=== PATIENT | male | born 1945 | race Asian ===

== ENCOUNTER 2021-03-18 07:05 | Emergency (ER) | payer MEDICARE, SELFPAY ==
--- NOTE | 2021-03-18 | ECG_ITS ---
Test Reason : DIZZY Blood Pressure : / mmHG Vent. Rate : 065 BPM Atrial Rate : 065 BPM P-R Int : 170 ms QRS Dur : 078 ms QT Int : 430 ms P-R-T Axes : 036 -02 040 degrees QTc Int : 447 ms Normal sinus rhythm Normal ECG No previous ECGs available Referred By: Generic ED Physician Electronically Signed By:AYESHA GUERRIER
--- NOTE | ~2021-03-18 | CT_ITS ---
EXAMINATION: CT HEAD WITHOUT CONTRAST CLINICAL INFORMATION: Dizziness. COMPARISON: None TECHNIQUE: Contiguous axial imaging was performed from the skull base to vertex without intravenous administration of contrast. This CT examination was performed using dose optimization techniques as appropriate, variously including the following: *Automated exposure control *Adjustment of mA and/or kV according to patient size (this includes techniques or standardized protocols for targeted exams where dose is matched to indication/reason for exam; i.e. extremities or head) *Use of iterative reconstruction technique DLP: 688 mGy-cm FINDINGS: There is no evidence of acute intracranial hemorrhage or territorial infarction. No abnormal mass effect or midline shift is seen. Snow to white matter differentiation is well preserved. No extra-axial fluid collections are identified. The lateral ventricles are symmetrical but enlarged and so other cortical sulci. There is no abnormal attenuation within the brain parenchyma. The osseous structures and soft tissues are normal. There is diffuse mucoperiosteal thickening involving bilateral ethmoid and sphenoid sinuses. CT/CT head/brain wo con IMPRESSION: No acute intracranial process seen. Age-related cerebral volume loss. Bilateral chronic ethmoid and sphenoid sinus inflammatory changes.
[2021-03-18 07:50] VITALS: BP 130/69; PULSE 71; RESP 18; TEMP 36.6; O2SAT 98; BMI 30.2
--- NOTE | 2021-03-18 07:52 | ED_ITS ---
HPI - Dizziness General Chief Complaint: General Medical Stated Complaint: dizzy Time Seen by Provider: 03/18/21 07:51 Source: patient and family Mode of arrival: wheelchair Limitations: no limitations History of Present Illness MD elicited complaint: dizziness and lightheadedness Pertinent past history: other (vomiting and diarrhea in the middle of the night) Onset (ago): hour(s) (woke up at 2am with symptoms) Timing: sudden onset, awoke with symptoms and intermittent Severity: severe Description: sense of movement, lightheadedness and difficulty walking Context: change in body position and recent illness (vomiting and diarrhea) History of similar symptoms: No Exacerbating factors: movement/ambulation and change in body position Relieving factors: remaining still, rest and lying down Associated symptoms: nausea, vomiting and other (diarrhea) Related Data Previous Rx's Medication Instructions Recorded meclizine 25 mg tablet 25 mg PO TID PRN #30 tab 03/18/21 ondansetron 4 mg disintegrating 4 mg PO Q8H PRN #20 tab 03/18/21 tablet Allergies Allergy/AdvReac Type Severity Reaction Status Date / Time No Known Allergies Allergy Verified 03/18/21 07:59 Review of Systems Review of Systems: Constitutional : No Weight loss, No Fever, No Chills, pos Fatigue, pos Malaise ENT/Mouth : No sore throat, No Rhinorrhea Eyes: No Eye Pain, No Swelling, No Redness Cardiovascular : No Chest Pain, No SOB, No Dyspnea on Exertion, No Orthopnea, No Edema, No Palpitations Respiratory : No Cough, No Sputum, No Wheezing Gastrointestinal : pos Nausea, pos Vomiting, pos Diarrhea, No Constipation, No abdominal Pain, No Hematochezia, No Melena Genitourinary : No Dysuria, No Urinary Frequency, No Hematuria, Musculoskeletal : No joint pain, No Myalgias, No Joint Swelling Skin : No Skin Lesions, No rash Neuro : No Weakness, No Numbness, pos Dizziness, No Headache Psych : No Anxiety/Panic, No Depression Heme/Lymph: No Bruising, No Bleeding,No Lymphadenopathy Endocrine : No Polyuria, No Polydipsia All other systems reviewed and are negative PMFSH Past Medical History Attestation statement: The following information was validated with the patient. Medical History (Updated 03/18/21 @ 11:03 by Patricia Gomez DO) HTN (hypertension) Social History Social History (Updated 03/18/21 @ 08:07 by Patricia Gomez DO) Patient Tobacco Use Status: Never used Tobacco Advance Directives: Yes Advance Directives Information Provided: Yes Advance Directives on File: No Physical Exam Vital Signs: Vital Signs: Last Vital Signs Temp 98 F 03/18/21 07:50 Pulse 62 03/18/21 09:54 Resp 18 03/18/21 09:54 BP 130/81 03/18/21 09:54 Pulse Ox 98 03/18/21 09:54 Body Mass Index 30.2 Appearance: Alert. Oriented X3. No acute distress. Eyes: Pupils equal, round and reactive to light. no nystagmus ENT: Pharynx normal. Neck: Normal inspection. Neck supple. CVS: Normal heart rate and rhythm. Pulses normal. Respiratory: No respiratory distress. Breath sounds normal. Abdomen: Soft and non-tender. Skin: Skin warm and dry. pale skin color. Normal skin turgor. Extremities: No lower extremity edema. No calf ttp Neuro: Oriented X 3. No motor deficit. No sensory deficit. no drift, will not ambulate but can get to the to stretcher, RN also notes he stood up and urinated on his own without issue Course Course Course Narrative: patient has no dizziness states he feels much better, BP stable with orthostatics, stable for DC, steady gait MDM - Dizziness MDM Narrative Medical decision making narrative: 75 yo male with hx of HTN here with dizziness n/v/d no abdominal pain no CP/SOB, non focal neuro exam - symptoms all started at 2am when he woke. At this time labs, IVF, zofran, CT head ordered, could be orthostatics/dehydration, symptoms do improve with rest so posterior stroke seems atypical with no other neuro findings. Lab Data Result diagrams: 03/18/21 08:06 03/18/21 08:06 Labs: Lab Results 03/18/21 03/18/21 03/18/21 Range/Units 08:06 08:06 08:06 WBC 9.7 (4.8-10.8) X10*3/uL RBC 5.36 (4.60-5.80) X10*6/uL Hgb 16.0 (14.0-18.0) g/dl Hct 48.1 (42-52) % MCV 89.7 (80-98) fL MCH 29.9 (27.0-33.0) pg MCHC 33.3 (31.0-36.0) g/dl RDW 14.2 (11.0-16.0) % Plt Count 133 L (160-400) X10*3/uL MPV 10.4 (9.4-12.4) fL Immature Gran % (Auto) 0.7 H (0.0-0.4) % Neut % (Auto) 80.0 H (45-73) % Lymph % (Auto) 15.2 L (20-40) % [place] % (Auto) 3.8 (2-11) % Eos % (Auto) 0.1 (0-4) % Baso % (Auto) 0.2 (0-2) % Lymph # (Auto) 1.5 (1.2-4.9) X10*3/uL [place] # (Auto) 0.4 (0.1-1.2) X10*3/uL Eos # (Auto) 0.0 (0.0-0.4) X10*3/uL Baso # (Auto) 0.0 (0.0-0.2) X10*3/uL Abs Immat Gran (auto) 0.07 H (0.00-0.03) X10*3/uL Absolute Neuts (auto) 7.8 (2.0-8.3) X10*3/uL Absolute Nucleated RBC 0.000 (0.0-0.012) X10*3/uL Nucleated RBC % (auto) 0.0 (0.0-0.2) /100WBC Smear Tech's Comments Not Reportable Sodium 140 (135-145) mmol/L Potassium 4.1 (3.3-5.1) mmol/L Chloride 108 (96-108) mmol/L Carbon Dioxide 21 L (22-29) mmol/L Anion Gap 15 (12-20) BUN 11 (9-16) mg/dL Creatinine 0.91 (0.5-1.4) mg/dL Estim Creat Clear Calc 63.2 Estimated GFR > 60 Random Glucose 219 H (60-115) mg/dL Calcium 8.8 (8.4-10.2) mg/dL Magnesium 2.3 (1.6-2.6) mg/dL Total Bilirubin 0.7 (0.0-1.0) mg/dL Direct Bilirubin 0.2 (0.0-0.5) mg/dL AST 16 (5-37) U/L ALT 14 (0-40) U/L Alkaline Phosphatase 116 (39-117) U/L Troponin I High Sens < 3.5 (<3.5-35.0) ng/L Total Protein 7.2 (6.5-8.0) g/dL Albumin 4.3 (3.5-5.0) g/dL Lipase 53 (8-78) U/L Urine Color Urine Appearance Urine pH (5.0-8.0) Ur Specific [place] (1.005-1.025) Urine Protein (NEG-TRACE) MG/DL Urine Glucose (UA) (NEG) MG/DL Urine Ketones (NEG) MG/DL Urine Blood (NEG) Urine Nitrite (NEG) Ur Leukocyte Esterase (NEG) COVID-19 (QI) (Negative) COVID-19 Clin Com 03/18/21 03/18/21 Range/Units 08:06 09:46 WBC (4.8-10.8) X10*3/uL RBC (4.60-5.80) X10*6/uL Hgb (14.0-18.0) g/dl Hct (42-52) % MCV (80-98) fL MCH (27.0-33.0) pg MCHC (31.0-36.0) g/dl RDW (11.0-16.0) % Plt Count (160-400) X10*3/uL MPV (9.4-12.4) fL Immature Gran % (Auto) (0.0-0.4) % Neut % (Auto) (45-73) % Lymph % (Auto) (20-40) % [place] % (Auto) (2-11) % Eos % (Auto) (0-4) % Baso % (Auto) (0-2) % Lymph # (Auto) (1.2-4.9) X10*3/uL [place] # (Auto) (0.1-1.2) X10*3/uL Eos # (Auto) (0.0-0.4) X10*3/uL Baso # (Auto) (0.0-0.2) X10*3/uL Abs Immat Gran (auto) (0.00-0.03) X10*3/uL Absolute Neuts (auto) (2.0-8.3) X10*3/uL Absolute Nucleated RBC (0.0-0.012) X10*3/uL Nucleated RBC % (auto) (0.0-0.2) /100WBC Smear Tech's Comments Sodium (135-145) mmol/L Potassium (3.3-5.1) mmol/L Chloride (96-108) mmol/L Carbon Dioxide (22-29) mmol/L Anion Gap (12-20) BUN (9-16) mg/dL Creatinine (0.5-1.4) mg/dL Estim Creat Clear Calc Estimated GFR Random Glucose (60-115) mg/dL Calcium (8.4-10.2) mg/dL Magnesium (1.6-2.6) mg/dL Total Bilirubin (0.0-1.0) mg/dL Direct Bilirubin (0.0-0.5) mg/dL AST (5-37) U/L ALT (0-40) U/L Alkaline Phosphatase (39-117) U/L Troponin I High Sens (<3.5-35.0) ng/L Total Protein (6.5-8.0) g/dL Albumin (3.5-5.0) g/dL Lipase (8-78) U/L Urine Color COLORLESS Urine Appearance CLEAR Urine pH 7.5 (5.0-8.0) Ur Specific [place] 1.020 (1.005-1.025) Urine Protein NEG (NEG-TRACE) MG/DL Urine Glucose (UA) 100 H (NEG) MG/DL Urine Ketones NEG (NEG) MG/DL Urine Blood NEG (NEG) Urine Nitrite NEG (NEG) Ur Leukocyte Esterase NEG (NEG) COVID-19 (QI) Negative (Negative) COVID-19 Clin Com See Note ECG Data Attestation: I personally reviewed and interpreted this ECG as follows: ECG interpretation date: 03/18/21 ECG interpretation time: 07:52 Interpretation: Rate: 65 Rhythm: NSR [place]: left Normal P waves. Normal MANDY. Normal QRS complex. ST T wave : normal no RONI qTC: normal prior studies: no acute ischemia The study has been interpreted contemporaneously by me. . Discharge Plan Discharge Clinical Impression: Dizziness Sinusitis Qualifiers: Sinusitis location: ethmoidal Chronicity: acute Recurrence: non-recurrent Qualified Code(s): J01.20 - Acute ethmoidal sinusitis, unspecified Patient Disposition: Home, Self-Care Instructions: Sinusitis (ED), Dizziness (ED) Additional Instructions: return to ED for any worsening symptoms or concerns Prescriptions: New meclizine 25 mg tablet 25 mg PO TID PRN (Reason: dizziness) Qty: 30 RF: 0 ondansetron 4 mg tablet,disintegrating 4 mg PO Q8H PRN (Reason: nausea and vomiting) Qty: 20 RF: 0 Referrals: Physician,Unknown [Primary Care Provider] - 2 days (if not better)
[2021-03-18 08:13] LABS: MANUAL DIFF FLAG SCAN; PLT CLUMP 1; Red Cell Distribution Width 14.2 % (11.0-16.0); SCAN SMEAR FLAG 1
[2021-03-18] MEDS: ondansetron HCL 4 MG/2 ML VIAL IVPUSH (08:13)
[2021-03-18] MEDS: 0.9 % Sodium Chloride 1,000 ML 999 ML IVCONT ×2 (08:14→09:53)
[2021-03-18 08:15] LABS: Basophils Percent Auto 0.2 % (0-2); Eosinophils Percent Auto 0.1 % (0-4); Hematocrit 48.1 % (42-52); Imm Gran Abs Auto 0.07 X10*3/uL (0.00-0.03); Imm Gran Pct Auto 0.7 % (0.0-0.4); Lymphocytes Absolute Auto 1.5 X10*3/uL (1.2-4.9); Lymphocytes Percent Auto 15.2 % (20-40); Mean Corpuscular HGB Conc 33.3 g/dl (31.0-36.0); Mean Corpuscular Hemoglobin 29.9 pg (27.0-33.0); Mean Corpuscular Volume 89.7 fL (80-98); Mean Platelet Volume 10.4 fL (9.4-12.4); Monocytes Absolute Auto 0.4 X10*3/uL (0.1-1.2); Monocytes Percent Auto 3.8 % (2-11); Neutrophils Absolute Auto 7.8 X10*3/uL (2.0-8.3); Platelet Count 133 X10*3/uL (160-400); Red Blood Count 5.36 X10*6/uL (4.60-5.80); White Blood Count 9.7 X10*3/uL (4.8-10.8)
[2021-03-18 08:37] LABS: Alanine Aminotransferase 14 U/L (0-40); Albumin Level 4.3 g/dL (3.5-5.0); Alkaline Phosphatase 116 U/L (39-117); Anion Gap 15 (12-20); Aspartate Amino Transferase 16 U/L (5-37); Bilirubin Direct 0.2 mg/dL (0.0-0.5); Bilirubin Total 0.7 mg/dL (0.0-1.0); Blood Urea Nitrogen 11 mg/dL (9-16); Calcium 8.8 mg/dL (8.4-10.2); Carbon Dioxide 21 mmol/L (22-29); Chloride 108 mmol/L (96-108); Creatinine Clr Calc Pharmacy 63.2; Estimated Glomerular Filt Rate > 60; Glucose Random 219 mg/dL (60-115); Lipase 53 U/L (8-78); Magnesium 2.3 mg/dL (1.6-2.6); Potassium 4.1 mmol/L (3.3-5.1); Sodium 140 mmol/L (135-145); Total Protein 7.2 g/dL (6.5-8.0)
[2021-03-18 08:43] LABS: Troponin-I High Sensitivity < 3.5 ng/L (<3.5-35.0)
[2021-03-18 08:44] LABS: COVID-19 Test Negative (Negative); IDNOW Serial# 08D9AD1C
[2021-03-18 09:30] VITALS: PULSE 70
[2021-03-18] MEDS: Meclizine HCl 25 MG TABLET PO (09:52)
[2021-03-18 09:54] VITALS: BP 130/81; PULSE 62; RESP 18; O2SAT 98
[2021-03-18 09:56] LABS: Glucose Urine UA 100 MG/DL (NEG); Leukocyte Esterase Urine NEG (NEG); Nitrite Urine NEG (NEG); PH 7.5 (5.0-8.0); Urine Blood NEG (NEG); Urine Ketones NEG (NEG); Urine Protein NEG (NEG-TRACE)
[2021-03-18 09:57] LABS: Appearance Urine CLEAR; Color Urine COLORLESS
== END 2021-03-18 11:24 | disposition home or self-care (01) ==
PROVIDERS: Emergency Provider Emergency Medicine
DX: J01.20 Acute ethmoidal sinusitis, unspecified (principal); R42 Dizziness and giddiness; Z79.899 Other long term (current) drug therapy; Z20.822 Contact with and (suspected) exposure to COVID-19
CPT/HCPCS: 36415; 70450; 80048; 80076; 81003; 83690; 83735; 84484; 85025; 87635; 93005; 96361; 96374; 99284; J2405

== ENCOUNTER 2024-04-18 09:00 | Outpatient (REF) | payer MEDICARE, SELFPAY ==
--- NOTE | ~2024-04-18 | XR_ITS ---
EXAMINATION: XR KNEE, LEFT CLINICAL INFORMATION: OSTEOARTHRITIS COMPARISON: 04/18/2024. TECHNIQUE: Four views of the left knee. FINDINGS: There is normal bone mineralization. No fracture, dislocation, or focal bone abnormality. Moderate to severe medial compartment, and mild to moderate lateral and patellofemoral compartment joint space narrowing, with prominent productive marginal osteophytes most prominent medially and involving the medial patellofemoral facet. There is minimal medial subluxation of the femur upon the tibia, suggesting ligamentous laxity. There is a probable suprapatellar effusion although knee is bent on the lateral which limits evaluation. Soft tissues demonstrate vascular calcifications. XR/XR knee LT 4V IMPRESSION: 1. No acute bony abnormalities. 2. Moderate to severe medial compartment and at mild to moderate lateral and patellofemoral compartment osteoarthrosis. 3. Probable joint effusion present. Electronically signed by: Anthony Boucher MD 06/27/2024 08:57 AM [facility]
--- NOTE | ~2024-04-18 | XR_ITS ---
EXAMINATION: XR KNEE, RIGHT CLINICAL INFORMATION: OSTEOARTHRITIS COMPARISON: None available. TECHNIQUE: Four views of the right knee. FINDINGS: There is normal bone mineralization. No fracture, dislocation, or focal bone abnormality. Moderate to severe medial compartment, and moderate lateral and patellofemoral compartment joint space narrowing, with prominent productive marginal osteophytes most prominent medially and involving the medial patellofemoral facet. There is minimal medial subluxation of the femur upon the tibia, suggesting ligamentous laxity. There is a probable suprapatellar effusion although knee is bent on the lateral which limits evaluation. Soft tissues demonstrate vascular calcifications. XR/XR knee RT 4V IMPRESSION: 1. No acute bony abnormalities. 2. Moderate to severe medial compartment and at moderate lateral and patellofemoral compartment osteoarthrosis. 3. Probable joint effusion present. Electronically signed by: Anthony Boucher MD 06/27/2024 08:58 AM [facility]
[2024-04-18 09:28] LABS: MANUAL DIFF FLAG NO
[2024-04-18 10:14] LABS: Basophils Percent Auto 0.3 % (0-2); Eosinophils Absolute Auto 0.1 X10*3/uL (0.0-0.4); Eosinophils Percent Auto 0.7 % (0-4); Hemoglobin 15.5 g/dl (14.0-18.0); Imm Gran Abs Auto 0.04 X10*3/uL (0.00-0.03); Imm Gran Pct Auto 0.5 % (0.0-0.4); Lymphocytes Absolute Auto 1.6 X10*3/uL (1.2-4.9); Lymphocytes Percent Auto 22.1 % (20-40); Mean Corpuscular Hemoglobin 29.6 pg (27.0-33.0); Mean Corpuscular Volume 89.9 fL (80.0-98.0); Mean Platelet Volume 10.6 fL (9.4-12.4); Monocytes Absolute Auto 0.6 X10*3/uL (0.1-1.2); Monocytes Percent Auto 8.2 % (2-11); Neutrophils Percent Auto 68.2 % (45-73); Platelet Count 143 X10*3/uL (160-400); Red Blood Count 5.23 X10*6/uL (4.60-5.80); White Blood Count 7.3 X10*3/uL (4.8-10.8)
[2024-04-18 11:15] LABS: Alanine Aminotransferase 17 U/L (0-40); Albumin Level 4.1 g/dL (3.5-5.0); Alkaline Phosphatase 98 U/L (39-117); Anion Gap 11 (12-20); Aspartate Amino Transferase 16 U/L (5-37); Blood Urea Nitrogen 9 mg/dL (9-16); Carbon Dioxide 25 mmol/L (22-29); Chloride 109 mmol/L (96-108); Cholesterol 151 mg/dL (<200); Estimated Glomerular Filt Rate > 60; Glucose Random 122 mg/dL (60-115); HDL Cholesterol 39 mg/dL (>40); LDL Cholesterol Calculated 96 mg/dL (<100); Potassium 3.8 mmol/L (3.3-5.1); Sodium 141 mmol/L (135-145); Thyroid Stimulating Hormone 5.36 uIU/mL (0.32-4.0); Total Protein 6.9 g/dL (6.5-8.0); Triglycerides 81 mg/dL (<150)
[2024-04-18 11:33] LABS: Prostate Specific Antigen Scr 8.15 ng/mL (<0.05-4.0)
== END 2024-04-18 09:01 | disposition home or self-care (01) ==
LOC: HO.XRAY 09:00
PROVIDERS: PCP Internal Medicine; Visit Provider Internal Medicine
DX: H91.90 Unspecified hearing loss, unspecified ear (principal); I10 Essential (primary) hypertension; M17.9 Osteoarthritis of knee, unspecified; N40.0 Benign prostatic hyperplasia without lower urinary tract symptoms; Z12.5 Encounter for screening for malignant neoplasm of prostate; M17.11 Unilateral primary osteoarthritis, right knee; M17.12 Unilateral primary osteoarthritis, left knee
CPT/HCPCS: 36415; 73564; 80053; 80061; 84153; 84443; 85025

== ENCOUNTER → 2024-04-18 09:31 | Outpatient (BNV) | payer MEDICARE, SELFPAY | PROVIDERS: PCP Internal Medicine; Visit Provider Radiology Diagnostic Radiology | DX: M17.0 Bilateral primary osteoarthritis of knee (principal) | CPT/HCPCS: 73564 ==

== ENCOUNTER 2024-08-15 09:00 | Outpatient (AMB) | payer MEDICARE, MEDICAID, SELFPAY ==
--- NOTE | 2024-08-15 09:04 | MHC.OFFVIS ---
Intake Visit Reasons: elevated PSA (set) Intake Note: Patient is present for ELEVATED PSA Urology Medication:NONE Antibiotic Allergy:NONE Blood Thinner:NONE Russian Language Professor Required: No Allergies No Known Allergies Allergy (Verified 08/15/24 09:04) Medication List - Last Reconciled 08/15/24 by Martin Baltazar MD amlodipine 10 mg PO DAILY dutasteride (Avodart) 0.5 mg PO DAILY HPI Comments Details: Harjit is a 79 year old male past medical history hypertension on amlodipine, who presents to the office as a new patient for elevated PSA. His daughter is here who interprets for him. I have reviewed lab results with them PSA-04/18/2024--8.15 ng/mL. I have discussed that elevated PSA may indicate changes in the prostate including benign enlargement, cancer and an inflammatory condition. I will empirically start an alpha reductase inhibitor Avodart 0.5 mg daily and repeat PSA. I have discussed consider prostate biopsy pending repeat PSA results. [facility] Medical History Hearing loss Obesity, morbid (more than 100 lbs over ideal weight or BMI > 40) Arthritis, rheumatic, acute or subacute HTN (hypertension) Social History Household Members: Spouse Alcohol intake: never Patient Tobacco Use Status: Never used Tobacco service: No Current occupational status: unemployed and disabled Sexual orientation: Straight/Heterosexual Gender identity: Male Review of Systems Const All systems reviewed & are unremarkable except as noted in HPI and below Reports no additional complaints Eyes Reports no additional complaints ENT Reports no additional complaints Card Reports no additional complaints Resp Reports no additional complaints GI Reports no additional complaints Reports as per HPI Musc Reports no additional complaints Skin/Breast Reports system reviewed and no additional complaints, except as documented Neuro Reports no additional complaints Psych Reports no additional complaints Endo Reports no additional complaints Marcin/Lymph Reports no additional complaints Aller/Immun Reports no additional complaints Physical Exam Const General: healthy appearing, no acute distress and well developed Orientation/consciousness: patient oriented x3 HEENT Head: Yes normocephalic and Yes atraumatic Eyes Conjunctivae: conjunctivae normal Neck Neck: Yes normal visual inspection Chest Chest palpation & inspection: normal inspection of the chest Resp Effort & Inspection: normal respiratory effort GI Inspection: Yes normal to inspection Neuro General: patient oriented x3 Psych Appearance: grossly normal Affect: normal affect Results AMB Urinalysis, Automated UA Leukoctes 0 Kurt/uL Last Edit by BRISA De La Fuente on 08/15/24 09:17 UA Nitrite Negative Last Edit by BRISA De La Fuente on 08/15/24 09:17 UA Urobilinogen 0.2 mg/dL Last Edit by BRISA De La Fuente on 08/15/24 09:17 UA Protein 15 mg/dL Last Edit by BRISA De La Fuente on 08/15/24 09:17 UA pH 6.0 Last Edit by BRISA De La Funete on 08/15/24 09:17 UA Blood 0 Ru/uL Last Edit by Miriam Lezama CCM on 08/15/24 09:17 UA Specific [place] 1.030 Last Edit by BRISA De La Fuente on 08/15/24 09:17 UA Ketone Negative Last Edit by BRISA De La Fuente on 08/15/24 09:17 UA Bilirubin 0 mg/dL Last Edit by Miriam Lezama CCM on 08/15/24 09:17 UA Glucose 0 mg/dL Last Edit by [facility]ama [facility] on 08/15/24 09:17 Results Reviewed Results Reviewed: Laboratory Last Values Urine pH (Auto) 6.0 08/15/24 09:17 Specific [place] (Auto) 1.030 08/15/24 09:17 Urine Protein (Auto) 15 mg/dL 08/15/24 09:17 Glucose (UA)(Auto) 0 mg/dL 08/15/24 09:17 Urine Ketones (Auto) Negative 08/15/24 09:17 Urine Blood (Auto) 0 Ru/uL 08/15/24 09:17 Urine Nitrite (Auto) Negative 08/15/24 09:17 Urine Bilirubin (Auto) 0 mg/dL 08/15/24 09:17 Urine Urobilinogen (Auto) 0.2 mg/dL 08/15/24 09:17 Leukocyte Esterase (Auto) 0 Kurt/uL 08/15/24 09:17 Assessment & Plan Assessment & Plan (1) Elevated PSA: Code(s): R97.20 - Elevated prostate specific antigen [PSA] Category: Medical (2) BPH (benign prostatic hyperplasia): Code(s): N40.0 - Benign prostatic hyperplasia without lower urinary tract symptoms Category: Medical Plan Avodart 0.5 mg daily. Repeat PSA in 3-4 months Orders: Orders AMB Urinalysis Automated Today Z13.9 - Encounter for screening, unspecified Medications: New dutasteride (Avodart) 0.5 mg PO DAILY 90 caps 1RF Patient Instructions: The patient had an opportunity to ask questions regarding treatment plan. The patient expressed understanding and agreement with the above treatment plan. The patient is aware they should contact our office by phone for worsening of their current condition or the appearance of new symptoms. Compliance is encouraged with any medications and followup testing that is ordered. It is a privilege to be allowed the opportunity to participate in the urologic care of your patient. If you have any questions or concerns regarding treatment for the above conditions please do not hesitate to contact me. The office telephone contact is [phone]. This note is constructed in part using voice recognition software. While every effort has been made to ensure accuracy paper rewinder operator errors may have been included. Yours sincerely, Martin Baltazar MD Coding Level of Care Code New Pt Level 4 (49902) Diagnoses Elevated PSA R97.20 BPH (benign prostatic hyperplasia) N40.0
--- OUTSIDE RECORDS SUMMARY | 2024-08-15 09:32 | XMS_ITS | Data Portability ---
Author Organization [facility], [facility] Address [address] [place] [address] Assessment Encounter Date Assessment Date Assessment LastModified by Organization Details LastModified Time 09/04/2020 09/04/2020 Patient agreed t o this visit via phone due to the COVID -19 pandemic. Patient understands this is a scheduled visit and the usual procedures with regard to billing and confidentiality apply. Patient was notified that the provider location is . Patient location: home During the visit the patient? s medical history and medical record were reviewed. The patient was notified to call our office for worsening or urgent symptoms. [email or web address] Not available 09/04/2020 15:13:27 Plan of Treatment Reminders Order Date Submit Date Provider Last Modified By Organization Details Last Modified Time Details Appointments None record ed. Lab None record ed. Referral None record ed. Procedures None record ed. Surgeries None record ed. Imaging None record ed. Medication Orders None record ed. Patient Targets Encounter Date Encounter Id Patient Goals Patient Target Last Modified By Organization Details Last Modified Time paperwork is filled out. Not available 01/03/2019 06:21:08 Return for PHA 6m Not available 08/17/2019 11:35:25 PHA. 6 m Not available 15:47:17 Patient Instructions Encounter Date Encounter Id Patient Instructions Last Modified By Organization Details Last Modified Time 12/16/2018 [id number] leg and ankle edema: care instructions [email or web address] Not available 12/16/2018 12:31:06 After a discussion of treatment options, which included consideration of best practices, patient preferences, and the patient? s individual lifestyle and treatment goals, as well as consideration and attempted mitigation of any barriers to meeting the patient? s goals, the following treatment plan and objectives were adopted: Leg and Ankle Edema: Care Instructions Your Care Instructions Swelling in the legs, ankles, and feet is called edema. It is common after you sit or stand for a while. Long plane flights or car rides often cause swelling in the legs and feet. You may also have swelling if you have to stand for long periods of time at your job. Problems with the veins in the legs (varicose veins) and changes in hormones can also cause swelling. Sometimes the swelling in the ankles and feet is caused by a more serious problem, such as heart failure, infection, blood clots, or liver or kidney disease. Follow-up care is a sofia part of your treatment and safety. Be sure to make and go to all appointments, and call your doctor if you are having problems. It's also a good idea to know your test results and keep a list of the medicines you take. How can you care for yourself at home? If your doctor gave you medicine, take it as prescribed. Call your doctor if you think you are having a problem with your medicine. Whenever you are resting, raise your legs up. Try to keep the swollen area higher than the level of your heart. Take breaks from standing or sitting in one position. Walk around to increase the blood flow in your lower legs. Move your feet and ankles often while you stand, or tighten and relax your leg muscles. Wear support stockings. Put them on in the morning, before swelling gets worse. Eat a balanced diet. Lose weight if you need to. Limit the amount of salt (sodium) in your diet. Salt holds fluid in the body and may increase swelling. When should you call for help? Call 911 anytime you think you may need emergency care. For example, call if: You have symptoms of a blood clot in your lung (called a pulmonary embolism). These may include: Sudden chest pain. Trouble breathing. Coughing up blood. Call your doctor now or seek immediate medical care if: You have signs of a blood clot, such as: Pain in your calf, back of the knee, thigh, or groin. Redness and swelling in your leg or groin. You have symptoms of infection, such as: Increased pain, swelling, warmth, or redness. Red streaks or pus. A fever. Watch closely for changes in your health, and be sure to contact your doctor if: Your swelling is getting worse. You have new or worsening pain in your legs. You do not get better as expected. [email or web address] Not available 12/16/2018 15:57:35 Reason for Referral None Reported. Results Created Date Observation Date Name Description Value Unit Range Abnormal Flag Note LastModifiedBy Organization Detail LastModifiedTime 12/11/19 19 12/10/2018 BMP, serum or plasm a glucose 111 mg/dL 70-100 high LIPS= Speci men Sligh tly Lipem ic. Chem Resul ts may be effec jacob. Not Available [address], [address], 12/10/2018 11:08:56 12/11/19 19 12/10/2018 BMP, serum or plasm a BUN 13 mg/dL 7-18 Not Available [address], [address], 12/10/2018 11:08:56 12/11/19 19 12/10/2018 BMP, serum or plasm a creatinine 1.0 mg/dL 0.8-1. 3 Not Available [address], [address], 12/10/2018 11:08:56 12/11/19 19 12/10/2018 BMP, serum or plasm a B/C 13.0 ratio Not Available [address], [address], 12/10/2018 11:08:56 12/11/19 19 12/10/2018 BMP, serum or plasm a GFR -non 78.1 mL/mi n Recom everton d GFR by the Natio nal Kidne y Found ation >60 mL/mi n/1.7 3m2 - Merly l <60 mL/mi n/1.7 3m2 - Chron ic Kidne y Disea se <15 mL/mi n/1.7 3m2 - Kidne y Failu re Not Available [address], [address], 12/10/2018 11:08:56 12/11/19 19 12/10/2018 BMP, serum or plasm a GFR - if 94.5 mL/mi n For Afric an Ameri can patie nts: Resul ts Multi plied by 1.21 Not Available [address], [address], 12/10/2018 11:08:56 12/11/19 19 12/10/2018 BMP, serum or plasm a sodium 141 mmol/ L 136-14 5 Not Available [address], [address], 12/10/2018 11:08:56 12/11/19 19 12/10/2018 BMP, serum or plasm a potassium 4.5 mmol/ L 3.5-5. 1 Not Available [address], [address], 12/10/2018 11:08:56 12/11/19 19 12/10/2018 BMP, serum or plasm a chloride 106 mmol/ L 96-107 Not Available [address], [address], 12/10/2018 11:08:56 12/11/19 19 12/10/2018 BMP, serum or plasm a anion gap 7.8 5.0-15 .0 Not Available [address], [address], 12/10/2018 11:08:56 12/11/1912/10/2018 BMP, serum or plasm a CO2 27 mmol/ L 21-32 Not Available [address], [address], 12/10/2018 11:08:56 12/11/1912/10/2018 BMP, serum or plasm a calcium 8.6 mg/dL 8.5-10 .3 Not Available [address], [address], 12/10/2018 11:08:56 12/11/1912/10/2018 uric acid, serum or plasm a uric acid 4.2 mg/dL 3.5-7. 2 Not Available [address], [address], 12/10/2018 11:08:57 12/11/19 19 12/10/2018 C-roseanne ctive prote in, quant itati ve, serum or plasm a C-reactive protein -quant 5.8 mg/L 0.0-9. 0 Not Available [address], [address], 12/10/2018 11:08:57 12/11/19 19 12/10/2018 ESR (eryt hrocy te sedim entat ion rate) , blood sed rate 2.0 0.0-20 .0 Not Available [address], [address], 12/10/2018 11:50:51 07/07/2007/08/2019 BMP, serum or plasm a glucose 99 mg/dL 70-100 Not Available [address], [address], 07/08/2019 10:44:32 07/07/2007/08/2019 BMP, serum or plasm a BUN 12 mg/dL 7-18 Not Available [address], [address], 07/08/2019 10:44:32 07/07/2007/08/2019 BMP, serum or plasm a creatinine 1.0 mg/dL 0.8-1. 3 Not Available [address], [address], 07/08/2019 10:44:32 07/07/2007/08/2019 BMP, serum or plasm a B/C 12.0 ratio Not Available [address], [address], 07/08/2019 10:44:32 07/07/2007/08/2019 BMP, serum or plasm a GFR -non 77.8 mL/mi n Recom everton d GFR by the Natio nal Kidne y Found ation >60 mL/mi n/1.7 3m2 - Merly l <60 mL/mi n/1.7 3m2 - Chron ic Kidne y Disea se <15 mL/mi n/1.7 3m2 - Kidne y Failu re Not Available [address], [address], 07/08/2019 10:44:32 07/07/20 19 07/08/2019 BMP, serum or plasm a GFR - if 94.2 mL/mi n For Afric an Ameri can patie nts: Resul ts Multi plied by 1.21 Not Available [address], [address], 07/08/2019 10:44:32 07/07/20 19 07/08/2019 BMP, serum or plasm a sodium 142 mmol/ L 136-14 5 Not Available [address], [address], 07/08/2019 10:44:32 07/07/2007/08/2019 BMP, serum or plasm a potassium 4.4 mmol/ L 3.5-5. 1 Not Available [address], [address], 07/08/2019 10:44:32 07/07/2007/08/2019 BMP, serum or plasm a chloride 104 mmol/ L 96-107 Not Available [address], [address], 07/08/2019 10:44:32 07/07/2007/08/2019 BMP, serum or plasm a anion gap 9.9 5.0-15 .0 Not Available [address], [address], 07/08/2019 10:44:32 07/07/2007/08/2019 BMP, serum or plasm a CO2 28 mmol/ L 21-32 Not Available [address], [address], 07/08/2019 10:44:32 07/07/2007/08/2019 BMP, serum or plasm a calcium 8.7 mg/dL 8.5-10 .3 Not Available [address], [address], 07/08/2019 10:44:32 07/07/2007/08/2019 lipid panel , serum cholesterol 160 mg/dL <200 mg/dl Genet able 200-2 39 mg/dl Borde rline High >240 mg/dl High Not Available [address], [address], 07/08/2019 10:44:33 07/07/2007/08/2019 lipid panel , serum triglyceride s 75 mg/dL <150 mg/dL Merly l 150-1 99 mg/dL Borde rline High 200-4 99 mg/dL High >500 mg/dL Very High Not Available [address], [address], 07/08/2019 10:44:33 07/07/2007/08/2019 lipid panel , serum direct HDL 41 mg/dL <40 mg/dl - Major Risk for CHD >60 mg/dl - Negat ronald Risk for CHD Not Available [address], [address], 07/08/2019 10:44:33 07/07/2007/08/2019 LDL, direc t, serum direct LDL 108 mg/dL RISK CATEG ORY LDL GOAL _ CHD or CHD Risk Equiv alent s <100 mg/dl (10-y ear risk >20%) 2+ Risk Facto rs <130 mg/dl (10-y ear risk <= 20%) 0-1 Risk Facto r??? <160 mg/dl ??? Almos t all peopl e with 0-1 risk facto r have a 10 year risk <10%, thus 10 year risk asses ment in peopl e with 0-1 risk facto r is not neces glenn. Not Available [address], [address], 07/08/2019 10:44:34 08/30/19 21 08/30/2020 BMP, serum or plasm a glucose 113 mg/dL 70-100 high Not Available [address], [address], 08/30/2020 13:55:42 08/30/19 21 08/30/2020 BMP, serum or plasm a BUN 15 mg/dL 7-18 Not Available [address], [address], 08/30/2020 13:55:42 08/30/19 21 08/30/2020 BMP, serum or plasm a creatinine 1.0 mg/dL 0.8-1. 3 Not Available [address], [address], 08/30/2020 13:55:42 08/30/19 21 08/30/2020 BMP, serum or plasm a B/C 15.0 ratio Not Available [address], [address], 08/30/2020 13:55:42 08/30/19 21 08/30/2020 BMP, serum or plasm a GFR -non 77.6 mL/mi n Recom everton d GFR by the Natio nal Kidne y Found ation >60 mL/mi n/1.7 3m2 - Merly l <60 mL/mi n/1.7 3m2 - Chron ic Kidne y Disea se <15 mL/mi n/1.7 3m2 - Kidne y Failu re Not Available [address], [address], 08/30/2020 13:55:42 08/30/19 21 08/30/2020 BMP, serum or plasm a GFR - if 93.9 mL/mi n For Afric an Ameri can patie nts: Resul ts Multi plied by 1.21 Not Available [address], [address], 08/30/2020 13:55:42 08/30/19 21 08/30/2020 BMP, serum or plasm a sodium 143 mmol/ L 136-14 5 Not Available [address], [address], 08/30/2020 13:55:42 08/30/19 21 08/30/2020 BMP, serum or plasm a potassium 4.1 mmol/ L 3.5-5. 1 Not Available [address], [address], 08/30/2020 13:55:42 08/30/19 21 08/30/2020 BMP, serum or plasm a chloride 106 mmol/ L 96-107 Not Available [address], [address], 08/30/2020 13:55:42 08/30/19 21 08/30/2020 BMP, serum or plasm a anion gap 10.0 5.0-15 .0 Not Available [address], [address], 08/30/2020 13:55:42 08/30/1908/30/2020 BMP, serum or plasm a CO2 27 mmol/ L 21-32 Not Available [address], [address], 08/30/2020 13:55:42 08/30/1908/30/2020 BMP, serum or plasm a calcium 8.7 mg/dL 8.5-10 .3 Not Available [address], [address], 08/30/2020 13:55:42 08/30/1908/30/2020 lipid panel , serum cholesterol 168 mg/dL <200 mg/dl Genet able 200-2 39 mg/dl Borde rline High >240 mg/dl High Not Available [address], [address], 08/30/2020 13:55:43 08/30/19 21 08/30/2020 lipid panel , serum triglyceride s 71 mg/dL <150 mg/dL Merly l 150-1 99 mg/dL Borde rline High 200-4 99 mg/dL High >500 mg/dL Very High Not Available [address], [address], 08/30/2020 13:55:43 08/30/19 21 08/30/2020 lipid panel , serum direct HDL 47 mg/dL <40 mg/dl - Major Risk for CHD >60 mg/dl - Negat ronald Risk for CHD Not Available [address], [address], 08/30/2020 13:55:43 08/30/19 21 08/30/2020 LDL, dmitry fried , serum (OBS) LDL - calculated 106.8 RISK CATEG ORY LDL GOAL _ CHD or CHD Risk Equiv alent s <100 mg/dl (10-y ear risk >20%) 2+ Risk Facto rs <130 mg/dl (10-y ear risk <= 20%) 0-1 Risk Facto r??? <160 mg/dl ??? Almos t all peopl e with 0-1 risk facto r have a 10 year risk <10%, thus 10 year risk asses ment in peopl e with 0-1 risk facto r is not flor elizabeth. Not Available [address], [address], 08/30/2020 13:55:44 02/13/20 21 02/12/2021 LIPID PANEL cholesterol 148 mg/dL <200 mg/dl Genet able 200-2 39 mg/dl Borde rline High >240 mg/dl High Not Available [address], [address], 02/12/2021 14:06:18 02/13/20 21 02/12/2021 LIPID PANEL triglyceride s 54 mg/dL <150 mg/dL Merly l 150-1 99 mg/dL Borde rline High 200-4 99 mg/dL High >500 mg/dL Very High Not Available [address], [address], 02/12/2021 14:06:18 02/13/20 21 02/12/2021 LIPID PANEL direct HDL 42 mg/dL <40 mg/dl - Major Risk for CHD >60 mg/dl - Negat ronald Risk for CHD Not Available [address], [address], 02/12/2021 14:06:18 02/13/20 21 02/12/2021 LDL - CALCU LATED LDL - calculated 95.2 RISK CATEG ORY LDL GOAL _ CHD or CHD Risk Equiv alent s <100 mg/dl (10-y ear risk >20%) 2+ Risk Facto rs <130 mg/dl (10-y ear risk <= 20%) 0-1 Risk Facto r??? <160 mg/dl ??? Almos t all peopl e with 0-1 risk facto r have a 10 year risk <10%, thus 10 year risk asses ment in peopl e with 0-1 risk facto r is not neces glenn. Not Available [address], [address], 02/12/2021 14:06:19 02/13/20 21 02/12/2021 BASIC METAB OLIC PANEL glucose 105 mg/dL 70-100 high Not Available [address], [address], 02/12/2021 15:23:25 02/13/20 21 02/12/2021 BASIC METAB OLIC PANEL BUN 11 mg/dL 7-18 Not Available [address], [address], 02/12/2021 15:23:25 02/13/20 21 02/12/2021 BASIC METAB OLIC PANEL creatinine 0.9 mg/dL 0.8-1. 3 Not Available [address], [address], 02/12/2021 15:23:25 02/13/20 21 02/12/2021 BASIC METAB OLIC PANEL B/C 12.2 ratio Not Available [address], [address], 02/12/2021 15:23:25 02/13/20 21 02/12/2021 BASIC METAB OLIC PANEL GFR -non 87.7 mL/mi n Recom everton d GFR by the Natio nal Kidne y Found ation >60 mL/mi n/1.7 3m2 - Merly l <60 mL/mi n/1.7 3m2 - Chron ic Kidne y Disea se <15 mL/mi n/1.7 3m2 - Kidne y Failu re Not Available [address], [address], 02/12/2021 15:23:25 02/13/20 21 02/12/2021 BASIC METAB OLIC PANEL GFR - if 106.1 mL/mi n For Afric an Jose De Jesus reynolds patie nts: Resul ts Multi plied by 1.21 Not Available [address], [address], 02/12/2021 15:23:25 02/13/20 21 02/12/2021 BASIC METAB OLIC PANEL sodium 141 mmol/ L 136-14 5 Not Available [address], [address], 02/12/2021 15:23:25 02/13/20 21 02/12/2021 BASIC METAB OLIC PANEL potassium 4.1 mmol/ L 3.5-5. 1 Not Available [address], [address], 02/12/2021 15:23:25 02/13/20 21 02/12/2021 BASIC METAB OLIC PANEL chloride 107 mmol/ L 96-107 Not Available [address], [address], 02/12/2021 15:23:25 02/13/20 21 02/12/2021 BASIC METAB OLIC PANEL anion gap 9.5 5.0-15 .0 Not Available [address], [address], 02/12/2021 15:23:25 02/13/20 21 02/12/2021 BASIC METAB OLIC PANEL CO2 25 mmol/ L 21-32 Not Available [address], [address], 02/12/2021 15:23:25 02/13/20 21 02/12/2021 BASIC METAB OLIC PANEL calcium 8.2 mg/dL 8.5-10 .3 low FRANCIE=V erifi ed by Kg zarate Not Available [address], [address], 02/12/2021 15:23:25 02/13/20 21 02/14/2021 QUANT IFERO N TB GOLD PLUS, JOE nil 0.02 IU/mL Not Available [address], [address], 02/14/2021 14:35:03 02/13/20 21 02/14/2021 QUANT IFERO N TB GOLD PLUS, JOE TB1 antigen 0.23 IU/mL Not Available [address], [address], 02/14/2021 14:35:03 02/13/20 21 02/14/2021 QUANT IFERO N TB GOLD PLUS, JOE TB2 antigen 0.28 IU/mL Not Available [address], [address], 02/14/2021 14:35:03 02/13/20 21 02/14/2021 QUANT IFERO N TB GOLD PLUS, JOE mitogen 9.91 IU/mL Not Available [address], [address], 02/14/2021 14:35:03 02/13/20 21 02/14/2021 QUANT IFERO N TB GOLD PLUS, JOE tbgp Negati ve negati ve Not Available [address], [place], [address], 02/14/2021 14:35:03 12/10/19 19 12/09/2018 XR, foot OBSERV ATION: EXAM: Radiog raphs of right foot, 3 views COMPAR THERON: none Histor y: Exquis ite tender ness of the right third metata rsopha langea l joint, rednes s and swelli ng of the right foot. No trauma . Rule out fractu re. FINDIN GS: Includ ed bone struct ures are intact and in anatom ic alignm ent. Promin ent planta r calcan eal spurri ng. Mild narrow ing of the first metata rsopha langea l joint associ ated with sclero tic/cy stic change s and tiny margin al osteop hytes. Remain ing joint spaces appear preser octavio.. Promin ent vascul ar calcif icatio ns. IMPRES MIGUEL ANGEL: 1. No acute fractu re or disloc ation. 2. Minima l degene rative change s at the first metata rsopha langea l joint. Electr onical ly signed Lissette rodriguez Physic dejan: Lizandro mancera [facility] (Imaging) [address] [place] [address] , [place], [id number], 12/10/2018 08:51:47 Result Notes None recorded. Problems Name Problem SNOMED Code Status Onset Date Resolution Date Notes Provider Name and Address Organization Details Recorded Time Diverticul itis of colon 663618836 Completed 07/31/2014 Carlos Tyson MD [address] [place] [address], [place], [phone] , [facility] 5 15:19:00 Low back pain 499926308 Completed 03/08/2012 Not Available [facility] 3 03:15:09 Cough 07366058 Completed 03/08/2012 Not Available [facility] 3 03:15:09 Essential hypertensi on 34220294 [facility] 6 15:54:38 Glucose level outside reference range 834290412 Completed 03/08/2012 Not Available [facility] 3 03:15:09 Urolith Completed 07/31/2014 Carlos Tyson MD [address] [place] [address], [phone] , [facility] 5 15:19:00 Malaise and fatigue 729932647 Completed 06/03/2011 Not Available [facility] 3 03:15:09 Knee pain Completed 201509/04/2020 Carlos Tyson MD [address] [place] [address], [phone] , [facility] 1 15:47:08 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 Procedures Surgical History Date Name Laterality Status Provider Name and Address Organization Details Recorded Time 8 Medicare Wellness Visit completed Saranya Pierre Maximiliano [facility] 07/05/2018 08:44:21 8 Advanced Care Planning completed Saranya Pierre Maximiliano [facility] 07/05/2018 08:44:32 7 Medicare Wellness Visit completed Tasha Price [facility] 01/07/2017 14:13:44 6 Medicare Wellness Visit completed Roz Boland LPN [facility] 08/06/2015 09:00:19 5 Medicare Wellness Visit completed Aaliyah Hollingsworth LPN [facility] 07/31/2014 14:55:22 5 Medicare Annual Wellness Visit completed Aaliyah Hollingsworth LPN [facility] 07/31/2014 15:08:29 5 Medicare Risk for Falls Screen completed Aaliyah Hollingsworth LPN [facility] 07/31/2014 15:08:29 3 Medicare Wellness Visit completed Shari Gil [facility] 07/25/2013 08:56:35 2 Medicare Wellness Visit completed Cuba Childress LPN [facility] 03/08/2012 10:02:24 2 Treatment and Advice completed Isaura Mancuso Mph, LPT [address] [place], [address], [facility] 08/07/2011 11:01:45 2 Treatment and Advice completed Isaura Mancuso Mph, LPT [address] [place], [address], [facility] 08/04/2011 11:11:29 2 Treatment and Advice completed Isaura Mancuso Mph, LPT [address] [place], [address], [facility] 08/01/2011 10:59:48 Imaging Results Imaging Date Name Status LastModified by Organiz ation Details LastModified Time 12/09/2018 XR, foot completed [facility] (Imaging) [address], [place], [address], 12/10/2018 08:51:47 Procedure Notes None recorded. Medical Equipment None Reported. Allergies No known drug allergies Medications Name Sig Start Date Stop Date Status Note LastModified by Organization Details LastModified Time diclofenac 3 % topical gel APPLY TO LESION AREAS BY TOPICAL ROUTE 2 TIMES PER DAY 2013 active Not Available Not Available Not Avai lable ibuprofen 800 mg tablet 08/17 completed Not Available Not Available Not Available Vicodin 5 mg-500 mg tablet Take 1 tablet every 4 hours by oral route. 2010 active Not Available Not Available Not Avai lable lisinopril 20 mg tablet TAKE 1 TABLET BY MOUTH DAILY 2011 active Not Available Not Available Not Avai lable prednisone 20 mg tablet Take 3 tabs for 3 days then 1 tab for 3 days 12/16 completed corre ction : take 2 tabs for 3 days then 1 tab for 3 days Not Available Not Available Not Available metronidazo le 500 mg tablet Take 1 tablet every 8 hours by oral route for 7 days. 06/12 completed Not Available Not Available Not Available Bactroban 2 % topical cream APPLY A SMALL AMOUNT TO THE AFFECTED AREA BY TOPICAL ROUTE 3 TIMES PER DAY FOR 10 DAYS 2015 active Not Available Not Available Not Avai lable losartan 100 mg-hydrochl orothiazide 25 mg tablet TAKE ONE TABLET BY MOUTH DAILY active Not Available Not Available No t Available amlodipine 10 mg tablet TAKE 1 TABLET BY MOUTH EVERY DAY 09/24 completed Not Available Not Available Not Available doxycycline monohydrate 100 mg capsule Take 1 capsule twice a day by oral route for 10 days. 04/11 completed Not Available Not Available Not Available Bactroban 2 % topical ointment APPLY A SMALL AMOUNT TO THE AFFECTED AREA BY TOPICAL ROUTE 3 TIMES PER DAY 01/07 completed Not Available Not Available Not Available Cipro 500 mg tablet Take 1 tablet every 12 hours by oral route for 7 days. 06/12 completed Not Available Not Available Not Available lisinopril 10 mg tablet Take 1 tablet every day by oral route. 2009 active Not Available Not Available Not Avai lable codeine 10 mg-guaifene sin 100 mg/5 mL Syrup Take 2 tsp every 4 hours by oral route as needed. 2008 active Not Available Not Available Not Avai lable amoxicillin 250 mg capsule 08/17 completed Not Available Not Available Not Available codeine 10 mg-guaifene sin 100 mg/5 mL oral liquid Take 10 mL every 4 hours by oral route. 2010 active Not Available Not Available Not Avai lable Pepcid 20 mg tablet Take 1 tablet (20 mg) by oral route 1-2 times per day 2009 active Not Available Not Available Not Avai lable losartan 100 mg tablet Take 1 tablet every day by oral route. 2012 active Not Available Not Available Not Avai lable nabumetone 500 mg tablet TAKE 1 TABLET BY MOUTH TWICE A DAY NEEDED 09/24 completed Not Available Not Available Not Available peg 3350-electr olytes 236 gram-22.74 gram-6.74 gram-5.86 gram solution USE DIRECTED 04/10 completed Not Available Not Available Not Available diclofenac 1 % topical gel APPLY 2 GRAMS TO AFFECTED AREA 4 TIMES DAILY 09/24 completed Not Available Not Available Not Available Lane [address] Fish Oil 684 mg-1,200 mg capsule,del ayed release Take 1 capsule every day by oral route. 04/17 completed Not Available Not Available Not Available Fluad Quad 2720-0430(6 5yr up)(PF) 60 mcg (15 mcg x 4)/0.5mL IM syringe PHARMACY ADMINISTE BUTCH 09/04 completed Not Available Not Available Not Available Vitals Date Recorded Body height Provider Name an d Address Organization Details Last Updated DateTime 12/16/2018 157.48 cm Sin Gutiérrez [facility] 12/16/2018 12:00:50 Date Recorded Body mass index (BMI) Body weight Provider Name and Address Organization Details Last Updated DateTime 12/16/2018 33.7 kg/m2 [address] g Sin Gutiérrez [facility] 12/16/2018 12:07:58 Date Recorded Heart rate Provider Name an d Address Organization Details Last Updated DateTime 12/16/2018 72 /min Sin Gutiérrez [facility] 12/16/2018 12:08:01 Date Recorded Oxygen saturation Oxygen saturation in Arterial blood by Pulse oximetry Provider Name and Address Organization Details Last Updated DateTime 12/16/2018 97 % 97 % Milagros Merdano PA-C [address] [place] [address], [phone], [facility] 12/16/2018 15:55:29 Date Recorded Body height Provider Name an d Address Organization Details Last Updated DateTime 12/31/2018 157.48 cm Saranya Pierre [facility] 12/31/2018 15:09:42 Date Recorded Body mass index (BMI) Body weight Provider Name and Address Organization Details Last Updated DateTime 12/31/2018 33.5 kg/m2 49713.1 g Saranya Pierre [facility] 12/31/2018 15:28:25 Date Recorded Heart rate Provider Name an d Address Organization Details Last Updated DateTime 12/31/2018 84 /min Saranya Pierre [facility] 12/31/2018 15:30:37 Date Recorded Body height Provider Name an d Address Organization Details Last Updated DateTime 07/18/2019 157.48 cm Malaika Cerda [facility] 07/18/2019 16:11:20 Date Recorded Body height Provider Name an d Address Organization Details Last Updated DateTime 08/17/2019 157.48 cm Saranya Pierre [facility] 08/17/2019 11:09:32 Date Recorded Body mass index (BMI) Body weight Provider Name and Address Organization Details Last Updated DateTime 08/17/2019 33.3 kg/m2 36408.51 g [facility] 11:21:28 Date Recorded Heart rate Provider Name an d Address Organization Details Last Updated DateTime 08/17/2019 80 /min Saranya Pierre [facility] 08/17/2019 11:24:58 Date Recorded Body height Provider Name an d Address Organization Details Last Updated DateTime 09/04/2020 157.48 cm Saranya Pierre [facility] 09/04/2020 15:08:58 Date Recorded Systolic blood pressure Diastolic blood pressure Provider Name and Address Organization Details Last Updated DateTime 12/16/2018 116 mm[Hg] 72 mm[Hg] Sin Gutiérrez [facility] 12/16/2018 12:09:07 Date Recorded Systolic blood pressure Diastolic blood pressure Provider Name and Address Organization Details Last Updated DateTime 12/31/2018 112 mm[Hg] 64 mm[Hg] Saranya Pierre [facility] 12/31/2018 15:31:43 Date Recorded Systolic blood pressure Diastolic blood pressure Provider Name and Address Organization Details Last Updated DateTime 08/17/2019 118 mm[Hg] 74 mm[Hg] Saranya Pierre [facility] 08/17/2019 11:27:00 Date Recorded Systolic blood pressure Diastolic blood pressure Provider Name and Address Organization Details Last Updated DateTime 09/10/2020 122 mm[Hg] 78 mm[Hg] Saranya Pierre [facility] 09/10/2020 14:42:18 Social History Question Answer Notes LastModified by Organizat ion Details LastModified Time Tobacco Smoking Status Never Smoker Not Available [facility] 06/12/2011 04:53:49 Do You Have An Advance Directive? No Information not available 06/12/2011 What Is Your Level Of Alcohol Consumption? None Information not available 01/17/2013 Are You Blind Or Do You Have Difficulty Seeing? No Information not available 07/25/2013 What Is Your Level Of Caffeine Consumption? Moderate Tea In The Am [email or web address] Information not available 02/01/2015 How Much Tobacco Do You Chew? None 7 Information not available 06/12/2011 Are You Deaf Or Do You Have Serious Difficulty Hearing? No Information not available 07/25/2013 What Type Of Diet Are You Following? VEGETARIAN [email or web address] Information not available 02/01/2015 Do You Or Have You Ever Used E-cigarettes Or Vape? Never Used Electronic Cigarettes Information not available 08/17/2019 What Is Your Occupation? Not Working Information not available 03/08/2012 How Many Days In The Past Year Have You Had A Heavy Drinking Consumption (4+ Female, 5+ Male)? 0 Information not available 01/17/2013 Are There Any Guns Present In Your Home? No [email or web address] Information not available 02/01/2015 Live Alone Or With Others? With Others Lives With Son & His Family, 1 18 Yo GRSON- Tyrell Information not available 03/08/2012 Does The Patient Have Difficulty Speaking Japanese? Yes 7 Information not available 06/12/2011 Does The Patient Have Difficulty Reading Japanese? Yes [email or web address] Information not available 02/01/2015 Patient Has Health Care Proxy Signed And In Chart Yes Negin [email or web address] Information not available 07/14/2018 Marital Status Jovannan,, They Are All Rastafari Information not available 03/08/2012 Mosquito Repellent Used Routinely Yes [email or web address] Information not available 02/01/2015 What Was The Date Of Your Most Recent Tobacco Screening? 09/04/2020 Information not available 09/04/2020 How Many Children Do You Have? 4 2 Girls , 2 Boys Information not available 07/05/2018 Seat Belts Used Routinely Yes Information not available 07/25/2013 Smoke Alarm In Home Yes Information not available 07/25/2013 Do You Or Have You Ever Used Smokeless Tobacco? Never Used Smokeless Tobacco Information not available 08/17/2019 What Types Of Sporting Activities Do You Participate In? Walking Information not available 03/08/2012 Do You Use Sunscreen Routinely? Yes Information not available 07/05/2018 Sex: Unknown Functional Status Question Answer Note LastModified by Organization D etails LastModified Time Do you have difficulty walking or climbing stairs? No Information not available 07/25/2013 Do you have difficulty doing errands alone? No Information not available 07/25/2013 Do you have difficulty dressing or bathing? No Information not available 07/25/2013 Mental Status Question Answer Note LastModified by Organization D etails LastModified Time Do you have difficulty concentrating, remembering or making decisions? No Information no t available 07/25/2013 Family History Relationship Description Onset Age of this Age Resolved Age Notes LastModified by Organization Details LastModified Time Father Problem 88 cough Not available 0 07/31/2014 15:32:18 Sister Problem A&W, lives in [place] , [facility] Not available 07/31/2014 15:32:19 Mother Problem 70 heart proble m Not available 07/31/2014 15:32:19 Notes:No family hx DM. Medical History Condition Response Hypertension Y Immunizations Vaccine Type Date Status Note Provider Nam e and Address Organization Details Recorded Time Tdap 2 completed Not Available [facility] 08/13/2019 02:26:35 pneumococcal polysaccharide PPV23 2 completed Not Available [facility] 08/13/2019 02:14:35 influenza, unspecified formulation 0 completed Not Available [facility] 06/11/2011 05:22:41 Influenza, high-dose, trivalent, PF 5 completed Not Available [facility] 08/13/2019 02:19:19 Influenza, high-dose, trivalent, PF 6 completed Not Available [facility] 08/13/2019 02:25:39 Pneumococcal conjugate PCV 13 6 completed Not Available [facility] 08/13/2019 02:28:12 Influenza, high-dose, trivalent, PF 6 completed Not Available [facility] 08/13/2019 02:31:53 Influenza, split virus, trivalent, preservative 3 completed Carlos Tyson MD [address] [place] [address], [phone], [facility] 07/25/2013 09:20:31 Influenza, high-dose, trivalent, PF 7 completed Not Available [facility] 08/13/2019 02:37:57 zoster live 4 completed SHIRA Valdes, [facility] 07/31/2014 15:41:15 Influenza, high-dose, trivalent, PF 8 completed Not Available [facility] 08/13/2019 02:33:02 Influenza, high-dose, trivalent, PF 0 completed SHAHAB Meyer [facility] 08/17/2019 13:53:51 Influenza, split virus, quadrivalent, preservative 0 completed SHAHAB Meyer [facility] 05/07/2020 09:04:52 Past Encounters Encounter ID Performer Location Encounter Start Date Encounter Closed Date Diagnosis/Indication Diagnosis SNOMED-CT Code Diagnosis ICD10 Code Diagnosis Note [id number] [facility], OFFICE [address] [place] [id number] 04/09/2009 15:17:04 04/12/2009 13:40:32 [id number] [facility], OFFICE [address] [place] [address] 04/11/2009 15:59:43 04/18/2009 10:30:29 [id number] [facility], OFFICE [address] [place] [phone] 04/16/2009 15:34:34 04/18/2009 11:40:07 [id number] [facility] - [address] [address] 04/12/2009 08:23:33 04/12/2009 08:29:21 [id number] , [facility], OFFICE [address] [facility] [place] [id number] 06/05/2009 13:05:17 06/06/2009 15:27:45 [id number] , [facility], OFFICE [address] [facility] [id number] 06/13/2009 08:24:17 06/19/2009 09:31:08 [id number] Radiology , C [address] [facility] [place] [id number] 06/13/2009 12:33:50 06/14/2009 14:44:27 [id number] , [facility], OFFICE [address] [facility] [place] [id number] 03/22/2010 09:10:14 03/27/2010 14:48:15 [id number] , [facility], OFFICE [address] [facility] [place] [id number] 06/11/2010 08:36:10 06/14/2010 11:17:06 [id number] , [facility], OFFICE [address] [facility] [place] [id number] 06/25/2010 08:21:03 06/28/2010 14:59:12 [id number] Radiology , [address] [facility] [place] [id number] 06/25/2010 08:53:17 06/26/2010 14:01:07 [id number] , [facility], OFFICE [address] [facility] [place] [id number] 04/04/2011 08:25:19 04/04/2011 09:46:22 [id number] , [facility], OFFICE [address] [facility] [place] [id number] 06/03/2011 07:53:02 06/03/2011 08:51:16 [id number] Physical Therapy, [facility] [address] [facility] [place] [id number] 08/01/2011 09:29:38 08/01/2011 13:55:30 [id number] Physical Therapy, [facility] [address] [facility] [place] [address] 08/04/2011 10:17:29 08/04/2011 11:19:02 [id number] Physical Therapy, [facility] [address] [facility] [place] [facility] [place] [id number] 08/07/2011 09:09:53 08/07/2011 11:07:59 [id number] Physical Therapy, [facility] [address] [facility] [place] [facility] [place] [id number] 08/11/2011 10:21:51 08/11/2011 11:19:12 [id number] Physical Therapy, [facility] [address] [facility] [place] [facility] [address] 08/18/2011 10:18:34 08/18/2011 14:53:17 [id number] Physical Therapy, [facility] [address] [facility] [place] [facility] [place] [id number] 08/25/2011 08:54:54 08/25/2011 09:47:57 [id number] ADDISON, [facility], OFFICE [address] [place] [address] [place] [facility] [id number] 03/08/2012 09:46:19 03/08/2012 10:55:28 [id number] Juana Syed , [facility], OFFICE [address] [place] [address] [place] [facility] [id number] 09/16/2012 09:22:09 09/16/2012 10:13:39 [id number] Triny JAIME, [facility], OFFICE [address] [place] [address] [place] [facility] [place] [id number] 10/12/2012 07:27:25 10/12/2012 08:01:03 [id number] Triny JAIME, [facility], OFFICE [address] [place] [address] [place] [facility] [place] [id number] 01/17/2013 08:20:56 01/17/2013 09:07:18 [id number] MD ADDISON Echols, [facility], OFFICE [address] [facility] [place] [facility] [place] [id number] 07/25/2013 08:50:09 07/25/2013 09:36:21 Adult health examination [id number] see Risk Assessment and Lifestyle Change Counseling section above Counseling [id number] Essential hypertension 71168244 [id number] ADDISON, [facility], OFFICE [address] [place] [address] [place] [facility] [place] [id number] 01/16/2014 08:09:23 01/16/2014 09:05:01 Benign essential hypertension 8980711 Blood pressure at goal Knee pain 50898743 Screening for cancer [id number] Triny Zamarripa , [facility], OFFICE [address] [place] [id number] 07/31/2014 14:40:53 07/31/2014 15:42:02 Adult health examination 783243897 see Risk Assessment and Lifestyle Change Counseling section above Influenza vaccine needed 5772567105 106 Benign ess ential hypertension 6905052 Blood pressure at goal [id number] , [facility], OFFICE [address] [place] [id number] 6 02/01/2015 08:27:40 02/01/2015 09:10:44 Benign essential hypertension 2793530 Blood pressure at goal Knee pain 72575540 Screening for malignant neoplasm of colon 024197832 [id number] Carlos Tyson MD , [facility], OFFICE [address] [place] [id number] 08/06/2015 08:43:12 08/06/2015 09:41:39 Adult health examination 819772320 Z00.00 see Risk Assessment and Lifestyle Change Counseling section above Benign ess ential hypertension 7969718 I10 Blood pressure at goal Eruption 684562466 R21 he has some infected cysts on chest Knee pain 10849915 M25.5 61 using voltaren cream Counseling 675602533 Z71 .9 Active or passive immunization 398201348 Z23 [id number] Carlos Tyson MD , [facility], OFFICE [address] [place] [address] 02/11/2016 09:07:13 02/11/2016 10:23:49 Benign essential hypertension 1636827 I10 Blood pressure at goal Upper chest pain 3066761 08 R07.9 Chest pain 83446483 R07. 9 Knee pain 25170998 M25.5 61 using voltaren cream Screening for malignant neoplasm of colon 767471494 Z12.11 [id number] Carlos Tyson MD , [facility], OFFICE [address] [place] [id number] 6 04/17/2016 09:21:53 04/17/2016 10:46:49 Active or passive immunization 749097314 Z23 Bilateral cataracts 9572 2004 H26.9 Essential hypertension 61254893 I10 well controlled [id number] Roxanna Dumont MIRELLA Syed , [facility], OFFICE [address] [place] [address] 01/07/2017 14:07:34 01/07/2017 14:43:05 Adult health examination 091728396 Z00.00 see Risk Assessment and Lifestyle Change Counseling section above Counseling 998023121 Z71 .9 Benign ess ential hypertension 9784136 I10 - Blood pressure at goal- Continue current medication s Cramp in lower limb 4499 18716 R25.2 - Will do ROSALBA for evaluation of blood flow Knee pain 98305085 M25.5 69 - Will continue with diclofenac gel and ice- Declines xray at this time Obesity 310822824 E66.9 - Discussed nutrition and regular exercise- Weight can improve blood pressure and cholestero l, as well as blood sugar [id number] Carlos Tyson MD , [facility], OFFICE [address] [place] [id number] 04/10/2017 11:53:01 04/10/2017 12:13:20 Active or passive immunization 254392486 Z23 Cataract 878557887 H26.9 [id number] Carlos Tyson MD , [facility], OFFICE [address] [place] [id number] 07/05/2018 08:21:28 07/05/2018 09:26:24 Adult health examination 816796665 Z00.00 see Risk Assessment and Lifestyle Change Counseling section above Depression screening 171 823872 Z13.89 depression screening tool administer ed, entered into emr, scored and discussed, time greater than 7.5 minutes Benign ess ential hypertension 3388951 I10 Blood pressure at goal Active or passive immunization 430559590 Z23 Pain in upper limb 05968 6003 M79.589 [id number] Milagros Medrano PA-C , [facility], OFFICE [address] [place] [address] 12/09/2018 15:35:10 12/10/2018 08:57:17 Pain in right foot 5159192276 00925 M79.671 Unclear etiology, point tenderness , warmth and erythema suggests gout. Xray viewed by Linda Medrano PA-C and Dr. Tyson, no fracture appreciate d. Pt co-evaluat ed with Dr. Tyson who agrees infection is not suspected and to treat with short course of prednisone . Will check uric acid, BMP, ESR, CRP. Follow up in 5-7 days or sooner with worsening symptoms. Seek emergency care with fever, shaking chills, streaking erythema, severe pain. [id number] Milagros Medrano PA-C , [facility], OFFICE [address] [place] [id number] 12/16/2018 11:48:34 12/16/2018 12:34:57 Edema of lower extremity 755350760 R60.0 Exam not consistent with CHF exacerbati on or DVT. Advised use of compressio n stockings, frequent leg elevation and low salt diet. Follow-up as scheduled with PCP in 2 weeks. If leg swelling is persistent with adherence to above recommenda tions consider switching from amlodipine 10 mg to an alternativ e antihypert ensive. Advised patient to seek emergency care with unilateral leg swelling, shortness of breath, hemoptysis , chest pain, sudden weight gain. [id number] Carlos Tyson MD , [facility], OFFICE [address] [place] [address] 12/31/2018 14:51:40 12/31/2018 17:55:24 Knee pain 83443277 M25.561 using voltaren cream [id number] Carlos Tyson MD , [facility], OFFICE [address] [place] [address] 07/18/2019 15:46:47 07/19/2019 18:09:28 [id number] Carlos Tyson MD , [facility], OFFICE [address] [place] [id number] 08/17/2019 10:52:16 08/17/2019 11:37:16 Active or passive immunization 306554147 Z23 Essential hypertension 57245722 I10 well controlled [id number] Carlos Tyson MD , [facility], OFFICE [address] [place] [id number] 6 09/04/2020 15:06:30 09/06/2020 09:31:21 Essential hypertension 94168975 I10 well controlled Health Concerns Section Related Observation LastModified by Organization Detai ls LastModified Time None Recorded Concern Status LastModified by Organization Details LastModified Time None Recorded Advance Directives Directive N: Payers Encounter Date Sequence Insurance Name Policy Number Policy Geiger Covered Member ID Geiger Member ID Guarantor Name 12/16/2018 1 [employer] DOS PRIOR TO 2022 - DUAL ELIGIBLE (MEDICARE REPLACEMENT/AD VANTAGE - HMO) Harjit C Serrato [id number] Harjit Serrato 12/31/2018 1 [facility] - DOS PRIOR TO 2022 - DUAL ELIGIBLE (MEDICARE REPLACEMENT/AD VANTAGE - HMO) Harjit C Serrato [id number] Harjit Serrato 07/18/2019 1 [facility] - DOS PRIOR TO 2022 - DUAL ELIGIBLE (MEDICARE REPLACEMENT/AD VANTAGE - HMO) Harjit C Serrato [id number] Harjit Serrato 08/17/2019 1 [employer] - DOS PRIOR TO 2022 - DUAL ELIGIBLE (MEDICARE REPLACEMENT/AD VANTAGE - HMO) Harjit C Serrato [id number] Harjit Serrato 09/04/2020 1 [employer] CARE [employer]IANCE - DOS PRIOR TO 2022 - DUAL ELIGIBLE (MEDICARE REPLACEMENT/AD VANTAGE - HMO) Harjit C Serrato [id number] Harjit Serrato Notes Date Note Type Note Provider Name and Address Organization Details Recorded Time 9 text/html 12/16/18: Patient present with his daughter for follow-up on right third toe pain and foot swelling. He was seen on 12/09/18. See note below for details. He was treated with a prednisone taper. Today he states he has been taking prednisone 20mg daily. Reports pain is better. His daughter c/o swelling in both legs. He denies calf pain, warmth or redness. Denies recent surgery, prolonged immobilization, history of DVT/PE. He denies shortness of breath, orthopnea, paroxysmal nocturnal dyspnea, weight gain, chest pain. 12/09/18 [place] note: Pt reports R foot, ankle swelling. Notes R foot, middle toe hurts, pain started in toes and has spread to ankle, feels very tight, especially walking. Pressure causes increased pain. Pt daughter Willie is translating today. Provider note: He c/o R 3rd toe pain and swelling of the right foot x 3 days. No fever. No shortness of breath. No PND. No trauma. No fever. No alcohol use. No change in diet. Pain started suddenly at night. No history of gout. He took nabumetone 500mg around 9am today which helped. Milagros Medrano PA-C [address] [place] [address], [phone], [facility] 12/16/2018 15:58:45 9 text/html here to fill out paperwork for [facility] patient has ongoing issues with arthritis and knee pain. He is unable to work at this time. He previously had worked, but had to stop due to these issues. Carlos Tyson MD [address] [place] [address], [phone], [facility] 01/03/2019 06:21:24 9 text/html 07/18/19 LAST OV12/31/18 here to fill out paperwork for [facility] patient has ongoing issues with arthritis and knee pain. He is unable to work at this time. He previously had worked, but had to stop due to these issues. Carlos Tyson MD [address] [place] [address], [phone], [facility] 07/19/2019 18:09:26 0 text/html [facility] HypertensionReported bypatient.Control:Patient understands medications are to lower blood pressure Compliance:Compliant with medications Barriers to CareNo identified barriers to care Context:No ischemic heart disease; No kidney disease; No history of CVA; No congestive heart failure; No history of transient ischemic attacks; No peripheral vascular disease; No history of diabetes Associated Symptoms:No chest pain; No shortness of breath; No edema; No fatigue; No palpitations; No decline in exercise capacity; No snoring Ability to Manage Self CarePatient feels confident in ability to self manage condition 08/17/2019-no concerns He is doing well at this time , NL LAbs, BP well controlledKnee cont to be a problem Carlos Tyson MD [address] [place] [address], [phone], [facility] 08/17/2019 11:35:56 1 text/html [facility]G HypertensionReported bypatient.Context:No ischemic heart disease; No kidney disease; No history of CVA; No congestive heart failure; No history of transient ischemic attacks; No peripheral vascular disease; No history of diabetes Control:Patient understands medications are to lower blood pressure Compliance:Compliant with medications Barriers to CareNo identified barriers to care Associated Symptoms:No chest pain; No shortness of breath; No edema; No fatigue; No palpitations; No decline in exercise capacity; No snoring Ability to Manage Self CarePatient feels confident in ability to self manage condition 09/04/20-Patient agreed to this visit via non-secure telehealth platform due to the COVID -19 pandemic. The nature of the non-secure technology was discussed and the patient agreed to proceed. Patient understands this is a scheduled visit and the usual procedures with regard to billing and confidentiality apply. Patient was notified that the provider location is [facility] Patient location: home During the visit the patient? s medical history and medical record were reviewed. The patient was notified to call our office for worsening or urgent symptoms. Phone Call: Lab resultsUnable to obtain vitals-will call with vitals tomorrowNo concernsDoing well Time for intake: {{1 2 3 4 5 6* 7 8 9 10 1 1 12 13 14 15 16 17 18 19 20 21 22 23 24 25}} minutes. 08/17/2019-no concerns He is doing well at this time , NL LAbs, BP well controlled Knee cont to be a problem Carlos Tyson MD [address] [place] [address], [phone], [facility] 09/04/2020 15:49:07
== END 2024-08-15 09:58 | disposition home or self-care (01) ==
PROVIDERS: PCP Internal Medicine; Visit Provider Urology
DX: R97.20 Elevated prostate specific antigen [PSA] (principal); N40.0 Benign prostatic hyperplasia without lower urinary tract symptoms; Z13.9 Encounter for screening, unspecified
CPT/HCPCS: 99204

== ENCOUNTER → 2024-08-15 09:00 | Outpatient (BNVA) | payer MEDICARE, MEDICAID, SELFPAY | PROVIDERS: PCP Internal Medicine; Visit Provider Urology | DX: R97.20 Elevated prostate specific antigen [PSA] (principal); N40.0 Benign prostatic hyperplasia without lower urinary tract symptoms | CPT/HCPCS: 81003; 99202 ==

== ENCOUNTER 2024-08-24 15:54 | Outpatient (REF) | payer MEDICARE, SELFPAY ==
--- OUTSIDE RECORDS SUMMARY | 2024-08-24 17:40 | XMS_ITS | Data Portability ---
Author Organization [facility], [facility] Address [address] [place] [address] Assessment Encounter Date Assessment Date Assessment LastModified [...] By Organization Details Last Modified Time 12/16/2018 [id number] leg and ankle edema: care instructions ddeserres [...] ts may be effec jacob. Not Available [address], [address], 12/10/2018 11:08:56 12/11/19 19 12/10/2018 BMP, serum or plasm a BUN 13 mg/dL 7-18 Not Available [address], [address], 12/10/2018 11:08:56 12/11/19 19 12/10/2018 BMP, serum or plasm a creatinine 1.0 mg/dL 0.8-1. 3 Not Available [address], [address], 12/10/2018 11:08:56 12/11/19 19 12/10/2018 BMP, serum or plasm a B/C 13.0 ratio Not Available [address], [address], 12/10/2018 11:08:56 12/11/19 19 12/10/2018 BMP, serum or plasm a GFR -non 78.1 mL/mi n Recom everton d GFR by the Natio nal Kidne y Found ation >60 mL/mi n/1.7 3m2 - Merly l <60 mL/mi n/1.7 3m2 - Chron ic Kidne y Disea se <15 mL/mi n/1.7 3m2 - Kidne y Failu re Not Available [address], [address], 12/10/2018 11:08:56 12/11/19 19 12/10/2018 BMP, serum or plasm a GFR - if 94.5 mL/mi n For Afric an Ameri can patie nts: Resul ts Multi plied by 1.21 Not Available [address], [address], 12/10/2018 11:08:56 12/11/19 19 12/10/2018 BMP, serum or plasm a sodium 141 mmol/ L 136-14 5 Not Available [address], [address], 12/10/2018 11:08:56 12/11/19 19 12/10/2018 BMP, serum or plasm a potassium 4.5 mmol/ L 3.5-5. 1 Not Available [address], [address], 12/10/2018 11:08:56 12/11/19 19 12/10/2018 BMP, serum or plasm a chloride 106 mmol/ L 96-107 Not Available [address], [address], 12/10/2018 11:08:56 12/11/19 19 12/10/2018 BMP, serum or plasm a anion gap 7.8 5.0-15 .0 Not Available [address], [address], 12/10/2018 11:08:56 12/11/1912/10/2018 BMP, serum or plasm a CO2 27 mmol/ L 21-32 Not Available [address], [address], 12/10/2018 11:08:56 12/11/1912/10/2018 BMP, serum or plasm a calcium 8.6 mg/dL 8.5-10 .3 Not Available [address], [address], 12/10/2018 11:08:56 12/11/1912/10/2018 uric acid, serum or plasm a uric acid 4.2 mg/dL 3.5-7. 2 Not Available [address], [address], 12/10/2018 11:08:57 12/11/19 19 12/10/2018 C-roseanne ctive prote in, quant itati ve, serum or plasm a C-reactive protein -quant 5.8 mg/L 0.0-9. 0 Not Available [address], [address], 12/10/2018 11:08:57 12/11/19 19 12/10/2018 ESR (eryt hrocy te sedim entat ion rate) , blood sed rate 2.0 0.0-20 .0 Not Available [address], [address], 12/10/2018 11:50:51 07/07/2007/08/2019 BMP, serum or plasm a glucose 99 mg/dL 70-100 Not Available [address], [address], 07/08/2019 10:44:32 07/07/2007/08/2019 BMP, serum or plasm a BUN 12 mg/dL 7-18 Not Available [address], [address], 07/08/2019 10:44:32 07/07/2007/08/2019 BMP, serum or plasm a creatinine 1.0 mg/dL 0.8-1. 3 Not Available [address], [address], 07/08/2019 10:44:32 07/07/2007/08/2019 BMP, serum or plasm a B/C 12.0 ratio Not Available [address], [address], 07/08/2019 10:44:32 07/07/2007/08/2019 BMP, serum or plasm a GFR -non 77.8 mL/mi n Recom everton d GFR by the Natio nal Kidne y Found ation >60 mL/mi n/1.7 3m2 - Merly l <60 mL/mi n/1.7 3m2 - Chron ic Kidne y Disea se <15 mL/mi n/1.7 3m2 - Kidne y Failu re Not Available [address], [address], 07/08/2019 10:44:32 07/07/20 19 07/08/2019 BMP, serum or plasm a GFR - if 94.2 mL/mi n For Afric an Ameri can patie nts: Resul ts Multi plied by 1.21 Not Available [address], [address], 07/08/2019 10:44:32 07/07/20 19 07/08/2019 BMP, serum or plasm a sodium 142 mmol/ L 136-14 5 Not Available [address], [address], 07/08/2019 10:44:32 07/07/2007/08/2019 BMP, serum or plasm a potassium 4.4 mmol/ L 3.5-5. 1 Not Available [address], [address], 07/08/2019 10:44:32 07/07/2007/08/2019 BMP, serum or plasm a chloride 104 mmol/ L 96-107 Not Available [address], [address], 07/08/2019 10:44:32 07/07/2007/08/2019 BMP, serum or plasm a anion gap 9.9 5.0-15 .0 Not Available [address], [address], 07/08/2019 10:44:32 07/07/2007/08/2019 BMP, serum or plasm a CO2 28 mmol/ L 21-32 Not Available [address], [address], 07/08/2019 10:44:32 07/07/2007/08/2019 BMP, serum or plasm a calcium 8.7 mg/dL 8.5-10 .3 Not Available [address], [address], 07/08/2019 10:44:32 07/07/2007/08/2019 lipid panel , serum cholesterol 160 mg/dL <200 mg/dl Genet able 200-2 39 mg/dl Borde rline High >240 mg/dl High Not Available [address], [address], 07/08/2019 10:44:33 07/07/2007/08/2019 lipid panel , serum triglyceride s 75 mg/dL <150 mg/dL Merly l 150-1 99 mg/dL Borde rline High 200-4 99 mg/dL High >500 mg/dL Very High Not Available [address], [address], 07/08/2019 10:44:33 07/07/2007/08/2019 lipid panel , serum direct HDL 41 mg/dL <40 mg/dl - Major Risk for CHD >60 mg/dl - Negat ronald Risk for CHD Not Available [address], [address], 07/08/2019 10:44:33 07/07/2007/08/2019 LDL, direc t, serum [...] r is not neces glenn. Not Available [address], [address], 07/08/2019 10:44:34 08/30/19 21 08/30/2020 BMP, serum or plasm a glucose 113 mg/dL 70-100 high Not Available [address], [address], 08/30/2020 13:55:42 08/30/19 21 08/30/2020 BMP, serum or plasm a BUN 15 mg/dL 7-18 Not Available [address], [address], 08/30/2020 13:55:42 08/30/19 21 08/30/2020 BMP, serum or plasm a creatinine 1.0 mg/dL 0.8-1. 3 Not Available [address], [address], 08/30/2020 13:55:42 08/30/19 21 08/30/2020 BMP, serum or plasm a B/C 15.0 ratio Not Available [address], [address], 08/30/2020 13:55:42 08/30/19 21 08/30/2020 BMP, serum or plasm a GFR -non 77.6 mL/mi n Recom everton d GFR by the Natio nal Kidne y Found ation >60 mL/mi n/1.7 3m2 - Merly l <60 mL/mi n/1.7 3m2 - Chron ic Kidne y Disea se <15 mL/mi n/1.7 3m2 - Kidne y Failu re Not Available [address], [address], 08/30/2020 13:55:42 08/30/19 21 08/30/2020 BMP, serum or plasm a GFR - if 93.9 mL/mi n For Afric an Ameri can patie nts: Resul ts Multi plied by 1.21 Not Available [address], [address], 08/30/2020 13:55:42 08/30/19 21 08/30/2020 BMP, serum or plasm a sodium 143 mmol/ L 136-14 5 Not Available [address], [address], 08/30/2020 13:55:42 08/30/19 21 08/30/2020 BMP, serum or plasm a potassium 4.1 mmol/ L 3.5-5. 1 Not Available [address], [address], 08/30/2020 13:55:42 08/30/19 21 08/30/2020 BMP, serum or plasm a chloride 106 mmol/ L 96-107 Not Available [address], [address], 08/30/2020 13:55:42 08/30/19 21 08/30/2020 BMP, serum or plasm a anion gap 10.0 5.0-15 .0 Not Available [address], [address], 08/30/2020 13:55:42 08/30/1908/30/2020 BMP, serum or plasm a CO2 27 mmol/ L 21-32 Not Available [address], [address], 08/30/2020 13:55:42 08/30/1908/30/2020 BMP, serum or plasm a calcium 8.7 mg/dL 8.5-10 .3 Not Available [address], [address], 08/30/2020 13:55:42 08/30/1908/30/2020 lipid panel , serum cholesterol 168 mg/dL <200 mg/dl Genet able 200-2 39 mg/dl Borde rline High >240 mg/dl High Not Available [address], [address], 08/30/2020 13:55:43 08/30/19 21 08/30/2020 lipid panel , serum triglyceride s 71 mg/dL <150 mg/dL Merly l 150-1 99 mg/dL Borde rline High 200-4 99 mg/dL High >500 mg/dL Very High Not Available [address], [address], 08/30/2020 13:55:43 08/30/19 21 08/30/2020 lipid panel , serum direct HDL 47 mg/dL <40 mg/dl - Major Risk for CHD >60 mg/dl - Negat ronald Risk for CHD Not Available [address], [address], 08/30/2020 13:55:43 08/30/19 21 08/30/2020 LDL, dmitry [...] r is not flor elizabeth. Not Available [address], [address], 08/30/2020 13:55:44 02/13/20 21 02/12/2021 LIPID PANEL cholesterol 148 mg/dL <200 mg/dl Genet able 200-2 39 mg/dl Borde rline High >240 mg/dl High Not Available [address], [address], 02/12/2021 14:06:18 02/13/20 21 02/12/2021 LIPID PANEL triglyceride s 54 mg/dL <150 mg/dL Merly l 150-1 99 mg/dL Borde rline High 200-4 99 mg/dL High >500 mg/dL Very High Not Available [address], [address], 02/12/2021 14:06:18 02/13/20 21 02/12/2021 LIPID PANEL direct HDL 42 mg/dL <40 mg/dl - Major Risk for CHD >60 mg/dl - Negat ronald Risk for CHD Not Available [address], [address], 02/12/2021 14:06:18 02/13/20 21 02/12/2021 LDL - [...] r is not neces glenn. Not Available [address], [address], 02/12/2021 14:06:19 02/13/20 21 02/12/2021 BASIC METAB OLIC PANEL glucose 105 mg/dL 70-100 high Not Available [address], [address], 02/12/2021 15:23:25 02/13/20 21 02/12/2021 BASIC METAB OLIC PANEL BUN 11 mg/dL 7-18 Not Available [address], [address], 02/12/2021 15:23:25 02/13/20 21 02/12/2021 BASIC METAB OLIC PANEL creatinine 0.9 mg/dL 0.8-1. 3 Not Available [address], [address], 02/12/2021 15:23:25 02/13/20 21 02/12/2021 BASIC METAB OLIC PANEL B/C 12.2 ratio Not Available [address], [address], 02/12/2021 15:23:25 02/13/20 21 02/12/2021 BASIC METAB OLIC PANEL GFR -non 87.7 mL/mi n Recom everton d GFR by the Natio nal Kidne y Found ation >60 mL/mi n/1.7 3m2 - Merly l <60 mL/mi n/1.7 3m2 - Chron ic Kidne y Disea se <15 mL/mi n/1.7 3m2 - Kidne y Failu re Not Available [address], [address], 02/12/2021 15:23:25 02/13/20 21 02/12/2021 BASIC METAB OLIC PANEL GFR - if 106.1 mL/mi n For Afric an Jose De Jesus reynolds patie nts: Resul ts Multi plied by 1.21 Not Available [address], [address], 02/12/2021 15:23:25 02/13/20 21 02/12/2021 BASIC METAB OLIC PANEL sodium 141 mmol/ L 136-14 5 Not Available [address], [address], 02/12/2021 15:23:25 02/13/20 21 02/12/2021 BASIC METAB OLIC PANEL potassium 4.1 mmol/ L 3.5-5. 1 Not Available [address], [address], 02/12/2021 15:23:25 02/13/20 21 02/12/2021 BASIC METAB OLIC PANEL chloride 107 mmol/ L 96-107 Not Available [address], [address], 02/12/2021 15:23:25 02/13/20 21 02/12/2021 BASIC METAB OLIC PANEL anion gap 9.5 5.0-15 .0 Not Available [address], [address], 02/12/2021 15:23:25 02/13/20 21 02/12/2021 BASIC METAB OLIC PANEL CO2 25 mmol/ L 21-32 Not Available [address], [address], 02/12/2021 15:23:25 02/13/20 21 02/12/2021 BASIC METAB OLIC PANEL calcium 8.2 mg/dL 8.5-10 .3 low FRANCIE=V erifi ed by Kg zarate Not Available [address], [address], 02/12/2021 15:23:25 02/13/20 21 02/14/2021 QUANT IFERO N TB GOLD PLUS, JOE nil 0.02 IU/mL Not Available [address], [address], 02/14/2021 14:35:03 02/13/20 21 02/14/2021 QUANT IFERO N TB GOLD PLUS, JOE TB1 antigen 0.23 IU/mL Not Available [address], [address], 02/14/2021 14:35:03 02/13/20 21 02/14/2021 QUANT IFERO N TB GOLD PLUS, JOE TB2 antigen 0.28 IU/mL Not Available [address], [address], 02/14/2021 14:35:03 02/13/20 21 02/14/2021 QUANT IFERO N TB GOLD PLUS, JOE mitogen 9.91 IU/mL Not Available [address], [address], 02/14/2021 14:35:03 02/13/20 21 02/14/2021 QUANT IFERO N TB GOLD PLUS, JOE tbgp Negati ve negati ve Not Available [address], [place], [address], 02/14/2021 14:35:03 12/10/19 19 12/09/2018 XR, foot [...] signed Lissette rodriguez Physic dejan: Lizandro mancera [facility] (Imaging) [address] [place] [address] , [place], [address], 12/10/2018 08:51:47 Result Notes None recorded. Problems Name Problem SNOMED Code Status Onset Date Resolution Date Notes Provider Name and Address Organization Details Recorded Time Diverticul itis of colon 830810371 Completed 07/31/2014 Carlos Tyson MD [address] [place] [address], [place], [address] , [facility] 5 15:19:00 Low back pain 397292915 Completed 03/08/2012 Not Available [facility] 3 03:15:09 Cough 57910152 Completed 03/08/2012 Not Available [facility] 3 03:15:09 Essential hypertensi on 89815136 [facility] 15:54:38 Glucose level outside reference range 799079868 Completed 03/08/2012 Not Available [facility] 3 03:15:09 Urolith Completed 07/31/2014 Carlos Tyson MD [address] [place] [address], [address] , [facility] 5 15:19:00 Malaise and fatigue 849012869 Completed 06/03/2011 Not Available [facility] 3 03:15:09 Knee pain Completed 201509/04/2020 Carlos Tyson MD [address] [place] [address], [address] , [facility] 1 15:47:08 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 Procedures Surgical History Date Name Laterality Status Provider Name and Address Organization Details Recorded Time 8 Medicare Wellness Visit completed Saranya Pierre Maximiliano [facility] 07/05/2018 08:44:21 8 Advanced Care Planning completed Saranya Pierre Maximiliano [facility] 07/05/2018 08:44:32 7 Medicare Wellness Visit completed Tasha Price [facility] 01/07/2017 14:13:44 6 Medicare Wellness Visit completed Roz Boland LPN [facility] 08/06/2015 09:00:19 5 Medicare Wellness Visit completed Aaliyah Hollingsworth LPN [facility] 07/31/2014 14:55:22 5 Medicare Annual Wellness Visit completed Aaliyah Hollingsworth LPN [facility] 07/31/2014 15:08:29 5 Medicare Risk for Falls Screen completed Aaliyah Hollingsworth LPN [facility] 07/31/2014 15:08:29 3 Medicare Wellness Visit completed Shari Gil [facility] 07/25/2013 08:56:35 2 Medicare Wellness Visit completed Cuba Childress LPN [facility] 03/08/2012 10:02:24 2 Treatment and Advice completed Isaura Mancuso Mph, LPT [address] [place], [address], [facility] 08/07/2011 11:01:45 2 Treatment and Advice completed Isaura Mancuso Mph, LPT [address] [place], [address], [facility] 08/04/2011 11:11:29 2 Treatment and Advice completed Isaura Mancuso Mph, LPT [address] [place], [address], [facility] 08/01/2011 10:59:48 Imaging Results Imaging Date Name Status LastModified by Organiz ation Details LastModified Time 12/09/2018 XR, foot completed [facility] ([facility]) [address], [place], [address], 12/10/2018 08:51:47 Procedure Notes None recorded. Medical [...] completed Not Available Not Available Not Available [place] 3 Fish Oil 684 mg-1,200 mg capsule,del ayed release Take 1 capsule every day by oral route. 04/17 completed Not Available Not Available Not Available Fluad Quad [id number](6 5yr up)(PF) 60 mcg (15 mcg x 4)/0.5mL IM syringe [facility] 09/04 completed Not Available Not Available Not Available Vitals Date Recorded Body height Provider Name an d Address Organization Details Last Updated DateTime 12/16/2018 157.48 cm Sin Gutiérrez [facility] 12/16/2018 12:00:50 Date Recorded Body mass index (BMI) Body weight Provider Name and Address Organization Details Last Updated DateTime 12/16/2018 33.7 kg/m2 26886 g Sin Gutiérrez [facility] 12/16/2018 12:07:58 Date Recorded Heart rate Provider Name an d Address Organization Details Last Updated DateTime 12/16/2018 72 /min Sin Gutiérrez [facility] 12/16/2018 12:08:01 Date Recorded Oxygen saturation Oxygen saturation in Arterial blood by Pulse oximetry Provider Name and Address Organization Details Last Updated DateTime 12/16/2018 97 % 97 % Milagros Medrano PA-C [address] [place] [address], [phone], [facility] 12/16/2018 15:55:29 Date Recorded Body height Provider Name an d Address Organization Details Last Updated DateTime 12/31/2018 157.48 cm Saranya Pierre [facility] 12/31/2018 15:09:42 Date Recorded Body mass index (BMI) Body weight Provider Name and Address Organization Details Last Updated DateTime 12/31/2018 33.5 kg/m2 63162.1 g Saranya Pierre [facility] 12/31/2018 15:28:25 Date Recorded Heart rate Provider Name an d Address Organization Details Last Updated DateTime 12/31/2018 84 /min Saranya Pierre [facility] 12/31/2018 15:30:37 Date Recorded Body height Provider Name an d Address Organization Details Last Updated DateTime 07/18/2019 157.48 cm Malaika Cerda [facility] 07/18/2019 16:11:20 Date Recorded Body height Provider Name an d Address Organization Details Last Updated DateTime 08/17/2019 157.48 cm Saranya Pierre [facility] 08/17/2019 11:09:32 Date Recorded Body mass index (BMI) Body weight Provider Name and Address Organization Details Last Updated DateTime 08/17/2019 33.3 kg/m2 92287.51 g [facility]/17/[facility] 11:21:28 Date Recorded Heart rate Provider Name an d Address Organization Details Last Updated DateTime 08/17/2019 80 /min Saranya Pierre [facility] 08/17/2019 11:24:58 Date Recorded Body height Provider Name an d Address Organization Details Last Updated DateTime 09/04/2020 157.48 cm Saranya Pierre [facility] 09/04/2020 15:08:58 Date Recorded Systolic blood pressure Diastolic blood pressure Provider Name and Address Organization Details Last Updated DateTime 12/16/2018 116 mm[Hg] 72 mm[Hg] Sin Gutiérrez [facility] 12/16/2018 12:09:07 Date Recorded Systolic blood pressure Diastolic blood pressure Provider Name and Address Organization Details Last Updated DateTime 12/31/2018 112 mm[Hg] 64 mm[Hg] Saranya Pierre [facility] 12/31/2018 15:31:43 Date Recorded Systolic blood pressure Diastolic blood pressure Provider Name and Address Organization Details Last Updated DateTime 08/17/2019 118 mm[Hg] 74 mm[Hg] Saranya Pierre [facility] 08/17/2019 11:27:00 Date Recorded Systolic blood pressure Diastolic blood pressure Provider Name and Address Organization Details Last Updated DateTime 09/10/2020 122 mm[Hg] 78 mm[Hg] Saranya Pierre [facility] 09/10/2020 14:42:18 Social History Question Answer Notes LastModified by Organizat ion Details LastModified Time Tobacco Smoking Status Never Smoker Not Available [facility] 06/12/2011 04:53:49 Do You Have An Advance Directive? No Information not available 06/12/2011 What Is Your Level Of Alcohol Consumption? None Information not available 01/17/2013 Are You Blind Or Do You Have Difficulty Seeing? No Information not available 07/25/2013 What Is Your Level Of Caffeine Consumption? Moderate Tea In The Am [email or web address] Information not available 02/01/2015 How Much Tobacco Do You Chew? None 7 Information not available 06/12/2011 Are You Deaf Or Do You Have Serious Difficulty Hearing? No Information not available 07/25/2013 What Type Of Diet Are You Following? VEGETARIAN [email or web address] Information not available 02/01/2015 Do You Or [...] Any Guns Present In Your Home? No [email or web address] Information not available 02/01/2015 Live Alone Or With Others? With Others Lives With Son & His Family, 1 18 Yo GRSON- Tyrell Information not available 03/08/2012 Does The Patient Have Difficulty Speaking Micronesian? Yes 7 Information not available 06/12/2011 Does The Patient Have Difficulty Reading Micronesian? Yes [email or web address] Information not available 02/01/2015 Patient Has Health Care Proxy Signed And In Chart Yes Negin [email or web address] Information not available 07/14/2018 Marital Status Jovannan,, They Are All Jainism Information not available 03/08/2012 Mosquito Repellent Used Routinely Yes [email or web address] Information not available 02/01/2015 What Was The [...] 07/31/2014 15:32:18 Sister Problem A&W, lives in [place] , [facility] Not available 07/31/2014 15:32:19 Mother Problem 70 heart proble m Not available 07/31/2014 15:32:19 Notes:No family hx DM. Medical History Condition Response Hypertension Y Immunizations Vaccine Type Date Status Note Provider Nam e and Address Organization Details Recorded Time Tdap 2 completed Not Available [facility] 08/13/2019 02:26:35 pneumococcal polysaccharide PPV23 2 completed Not Available [facility] 08/13/2019 02:14:35 influenza, unspecified formulation 0 completed Not Available [facility] 06/11/2011 05:22:41 Influenza, high-dose, trivalent, PF 5 completed Not Available [facility] 08/13/2019 02:19:19 Influenza, high-dose, trivalent, PF 6 completed Not Available [facility] 08/13/2019 02:25:39 Pneumococcal conjugate PCV 13 6 completed Not Available [facility] 08/13/2019 02:28:12 Influenza, high-dose, trivalent, PF 6 completed Not Available [facility] 08/13/2019 02:31:53 Influenza, split virus, trivalent, preservative 3 completed Carlos Tyson MD [address] [place] [address], [phone], [facility] 07/25/2013 09:20:31 Influenza, high-dose, trivalent, PF 7 completed Not Available [facility] 08/13/2019 02:37:57 zoster live 4 completed SHIRA Valdes, [facility] 07/31/2014 15:41:15 Influenza, high-dose, trivalent, PF 8 completed Not Available [facility] 08/13/2019 02:33:02 Influenza, high-dose, trivalent, PF 0 completed SHAHAB Meyer [facility] 08/17/2019 13:53:51 Influenza, split virus, quadrivalent, preservative 0 completed SHAHAB Meyer [facility] 05/07/2020 09:04:52 Past Encounters Encounter ID Performer Location Encounter Start Date Encounter Closed Date Diagnosis/Indication Diagnosis SNOMED-CT Code Diagnosis ICD10 Code Diagnosis Note [id number] [facility], OFFICE [address] [place] [id number] 04/09/2009 15:17:04 04/12/2009 13:40:32 [id number] [facility], OFFICE [address] [place] [address] 04/11/2009 15:59:43 04/18/2009 10:30:29 [id number] [facility], OFFICE [address] [place] [id number] 04/16/2009 15:34:34 04/18/2009 11:40:07 [id number] [facility] - [address] [address] 04/12/2009 08:23:33 04/12/2009 08:29:21 [id number] , [facility], OFFICE [address] [facility] [place] [address] 06/05/2009 13:05:17 06/06/2009 15:27:45 [id number] , [facility], OFFICE [address] [facility] [place] [address] 06/13/2009 08:24:17 06/19/2009 09:31:08 [id number] Radiology , C [address] [facility] [place] [address] 06/13/2009 12:33:50 06/14/2009 14:44:27 [id number] , [facility], OFFICE [address] [facility] [place] [address] 03/22/2010 09:10:14 03/27/2010 14:48:15 [id number] , [facility], OFFICE [address] [facility] [place] [address] 06/11/2010 08:36:10 06/14/2010 11:17:06 [id number] , [facility], OFFICE [address] [place] [address] 06/25/2010 08:21:03 06/28/2010 14:59:12 [id number] Radiology , [address] [place] [address] 06/25/2010 08:53:17 06/26/2010 14:01:07 [id number] , [facility], OFFICE [address] [place] [address] 04/04/2011 08:25:19 04/04/2011 09:46:22 [id number] , [facility], OFFICE [address] [place] [address] 06/03/2011 07:53:02 06/03/2011 08:51:16 [id number] Physical Therapy, [facility] [address] [place] [address] 08/01/2011 09:29:38 08/01/2011 13:55:30 [id number] Physical Therapy, [facility] [address] [place] [address] 08/04/2011 10:17:29 08/04/2011 11:19:02 [id number] Physical Therapy, [facility] [address] [facility] [address] [facility] [place] [address] 08/07/2011 09:09:53 08/07/2011 11:07:59 [id number] Physical Therapy, [facility] [address] [facility] [address] [facility] [place] [address] 08/11/2011 10:21:51 08/11/2011 11:19:12 [id number] Physical Therapy, [facility] [address] [facility] [facility] [place] [address] 08/18/2011 10:18:34 08/18/2011 14:53:17 [id number] Physical Therapy, [facility] [address] on [facility] [place] [address] 08/25/2011 08:54:54 08/25/2011 09:47:57 [id number] ADDISON, [facility], OFFICE [address] [place] [address] on [facility] [place] [address] 03/08/2012 09:46:19 03/08/2012 10:55:28 [id number] Juana Syed , [facility], OFFICE [address] [place] [address] on [facility] [place] [address] 09/16/2012 09:22:09 09/16/2012 10:13:39 [id number] Triny JAIME, [facility], OFFICE [address] [place] [address] on [facility] [place] [address] 10/12/2012 07:27:25 10/12/2012 08:01:03 [id number] Triny JAIME, [facility], OFFICE [address] [place] [address] on [facility] [place] [address] 01/17/2013 08:20:56 01/17/2013 09:07:18 [id number] MD ADDISON Echols, [facility], OFFICE [address] [facility] on [facility] [place] [address] 07/25/2013 08:50:09 07/25/2013 09:36:21 Adult health examination [id number] see Risk Assessment and Lifestyle Change Counseling section above Counseling [id number] Essential hypertension 58182009 [id number] ADDISON, [facility], OFFICE [address] [place] [address] on [facility] [place] [address] 01/16/2014 08:09:23 01/16/2014 09:05:01 Benign essential hypertension 1059447 Blood pressure at goal Knee pain 34759546 Screening for cancer [id number] Triny Zamarripa , [facility], OFFICE [address] [place] [phone] 6 07/31/2014 14:40:53 07/31/2014 15:42:02 Adult health examination [id number] see Risk Assessment and Lifestyle Change Counseling section above Influenza vaccine needed [id number] 106 Benign ess ential hypertension 5566216 Blood pressure at goal [id number] , [facility], OFFICE [address] [place] [address] 6 02/01/2015 08:27:40 02/01/2015 09:10:44 Benign essential hypertension 5302074 Blood pressure at goal Knee pain 13858363 Screening for malignant neoplasm of colon 949888617 [id number] Carlos Tyson MD , [facility], OFFICE [address] [place] [phone] 6 08/06/2015 08:43:12 08/06/2015 09:41:39 Adult health examination 446805193 Z00.00 see Risk Assessment and Lifestyle Change Counseling section above Benign ess ential hypertension 3505391 I10 Blood pressure at goal Eruption 061502631 R21 he has some infected cysts on chest Knee pain 39682589 M25.5 61 using voltaren cream Counseling 820308414 Z71 .9 Active or passive immunization 198817799 Z23 [id number] Carlos Tyson MD , [facility], OFFICE [address] [place] [phone] 6 02/11/2016 09:07:13 02/11/2016 10:23:49 Benign essential hypertension 8491235 I10 Blood pressure at goal Upper chest pain 8958485 08 R07.9 Chest pain 09778306 R07. 9 Knee pain 70736491 M25.5 61 using voltaren cream Screening for malignant neoplasm of colon 395246374 Z12.11 [id number] Carlos Tyson MD , [facility], OFFICE [address] [place] [phone] 6 04/17/2016 09:21:53 04/17/2016 10:46:49 Active or passive immunization 406731768 Z23 Bilateral cataracts 9572 2004 H26.9 Essential hypertension 90761640 I10 well controlled [id number] Roxanna Dumont MIRELLA Syed , [facility], OFFICE [address] [place] [phone] 01/07/2017 14:07:34 01/07/2017 14:43:05 Adult health examination 729895043 Z00.00 see Risk Assessment and Lifestyle Change Counseling section above Counseling 455872004 Z71 .9 Benign ess ential hypertension 3555960 I10 - Blood pressure at goal- Continue current medication s Cramp in lower limb 4499 46386 R25.2 - Will do ROSALBA for evaluation of blood flow Knee pain 36606378 M25.5 69 - Will continue with diclofenac gel and ice- Declines xray at this time Obesity 515890811 E66.9 - Discussed nutrition and regular exercise- Weight can improve blood pressure and cholestero l, as well as blood sugar [id number] Carlos Tyson MD , [facility], OFFICE [address] [place] [phone] 6 04/10/2017 11:53:01 04/10/2017 12:13:20 Active or passive immunization 495484146 Z23 Cataract 694501545 H26.9 [id number] Carlos Tyson MD , [facility], OFFICE [address] [place] [phone] 6 07/05/2018 08:21:28 07/05/2018 09:26:24 Adult health examination 490361170 Z00.00 see Risk Assessment and Lifestyle Change Counseling section above Depression screening 171 884384 Z13.89 depression screening tool administer ed, entered into emr, scored and discussed, time greater than 7.5 minutes Benign ess ential hypertension 5806552 I10 Blood pressure at goal Active or passive immunization 753205934 Z23 Pain in upper limb 82065 6003 M79.068 [id number] Milagros Medrano PA-C , [facility], OFFICE [address] [place] [phone] 6 12/09/2018 15:35:10 12/10/2018 08:57:17 Pain in right foot 0478683701 59840 M79.671 Unclear etiology, point tenderness , warmth [...] fever, shaking chills, streaking erythema, severe pain. [id number] Milagros Medrano PA-C , [facility], OFFICE [address] [place] [phone] 6 12/16/2018 11:48:34 12/16/2018 12:34:57 Edema of lower extremity 072626641 R60.0 Exam not consistent with CHF exacerbati [...] hemoptysis , chest pain, sudden weight gain. [id number] Carlos Tyson MD , [facility], OFFICE [address] [place] [phone] 6 12/31/2018 14:51:40 12/31/2018 17:55:24 Knee pain 73842538 M25.561 using voltaren cream [id number] Carlos Tyson MD , [facility], OFFICE [address] [place] [phone] 6 07/18/2019 15:46:47 07/19/2019 18:09:28 [id number] Carlos Tyson MD , [facility], OFFICE [address] [place] [phone] 6 08/17/2019 10:52:16 08/17/2019 11:37:16 Active or passive immunization 607965113 Z23 Essential hypertension 86154523 I10 well controlled [id number] Carlos Tyson MD , [facility], OFFICE [address] [place] [phone] 6 09/04/2020 15:06:30 09/06/2020 09:31:21 Essential hypertension 75373221 I10 well controlled Health Concerns Section Related Observation LastModified by Organization Detai ls LastModified Time None Recorded Concern Status LastModified by Organization Details LastModified Time None Recorded Advance Directives Directive N: Payers Encounter Date Sequence Insurance Name Policy Number Policy Geiger Covered Member ID Geiger Member ID Guarantor Name 12/16/2018 1 [facility] - DOS PRIOR TO 2022 - DUAL ELIGIBLE (MEDICARE REPLACEMENT/AD VANTAGE - HMO) Harjit C Serrato [id number] Harjit Serrato 12/31/2018 1 [facility] [employer] - DOS PRIOR TO 2022 - DUAL ELIGIBLE (MEDICARE REPLACEMENT/AD VANTAGE - HMO) Harjit C Serrato [id number] Harjit Serrato 07/18/2019 1 [facility] DOS PRIOR TO 2022 - DUAL ELIGIBLE (MEDICARE REPLACEMENT/AD VANTAGE - HMO) Harjit C Serrato [id number] Harjit Serrato 08/17/2019 1 [facility] [employer] [facility] [employer] - DOS PRIOR TO 2022 - DUAL ELIGIBLE (MEDICARE REPLACEMENT/AD VANTAGE - HMO) Harjit C Serrato [id number] Harjit Serrato 09/04/2020 1 [employer] CARE [employer] - DOS PRIOR TO 2022 - DUAL ELIGIBLE (MEDICARE REPLACEMENT/AD VANTAGE - HMO) Harjit C Serrato [id number] Harjit Serrato Notes Date Note Type Note [...] 9am today which helped. Milagros Medrano PA-C [address] [place] [address], [phone], [facility] 12/16/2018 15:58:45 9 text/html here to fill out paperwork for [facility] patient has ongoing issues with arthritis and knee pain. He is unable to work at this time. He previously had worked, but had to stop due to these issues. Carlos Tyson MD [address] [place] [address], [phone], [facility] 01/03/2019 06:21:24 9 text/html 07/18/19 LAST OV12/31/18 here to fill out paperwork for [facility] patient has ongoing issues with arthritis and knee pain. He is unable to work at this time. He previously had worked, but had to stop due to these issues. Carlos Tyson MD [address] [place] [address], [phone], [facility] 07/19/2019 18:09:26 0 text/html [facility] HypertensionReported [...] to be a problem Carlos Tyson MD [address] [place] [address], [phone], [facility] 08/17/2019 11:35:56 1 text/html [facility] HypertensionReported [...] was [place] [facility] [place] During the visit the [...] to be a problem Carlos Tyson MD [address] [place] [address], [phone], [facility] 09/04/2020 15:49:07
== END 2024-08-24 15:55 | disposition home or self-care (01) ==
LOC: HO.SH 15:54
PROVIDERS: Visit Provider Internal Medicine
DX: Z01.118 Encounter for examination of ears and hearing with other abnormal findings (principal); H90.3 Sensorineural hearing loss, bilateral
CPT/HCPCS: 92553; 92567

== ENCOUNTER 2024-09-29 12:43 | Outpatient (REF) | payer MEDICARE, SELFPAY ==
--- OUTSIDE RECORDS SUMMARY | 2024-09-29 15:20 | XMS_ITS | Continuity of Care Document ---
Author Organization [facility] Adult Address [address] [place] [address]- Care Team Providers Care [employer] Supervisor Name Role Phone Not on Staff, PCP Primary Care Physician Unavail able [facility]counter [facility] Date(s): 04/26/24 - 09/21/[address] [facility] Adult [address] [place] [address]- Attending Physician: Edward Longo MD Encounter Type: Pre Office Visit Allergies, Adverse Reactions, Alerts No Known Medication Allergies Immunizations Given and Recorded Vaccine Date Status Refusal Reason tetanus-diphtheria toxoids (Td) 1 06/26/22 Given influenza virus vaccine, inactivated 05/06/21 Santiago rded influenza virus vaccine, inactivated 05/04/20 Santiago rded influenza virus vaccine, inactivated 08/17/19 Santiago rded influenza virus vaccine, inactivated 07/05/18 Santiago rded influenza virus vaccine, inactivated 04/10/17 Santiago rded influenza virus vaccine, inactivated 04/17/16 Santiago rded influenza virus vaccine, inactivated 08/06/15 Santiago rded influenza virus vaccine, inactivated 07/31/14 Santiago rded influenza virus vaccine, inactivated 07/27/12 Santiago rded SARS-CoV-2 (COVID-19) mRNA BNT-162b2 vac 05/06/21 Recorded SARS-CoV-2 (COVID-19) mRNA BNT-162b2 vac 09/26/20 Given SARS-CoV-2 (COVID-19) mRNA BNT-162b2 vac 09/05/20 Given pneumococcal 13-valent vaccine 08/06/15 Recorded Zoster Vaccine Live 01/16/14 Recorded pneumococcal 23-valent vaccine 03/10/12 Recorded tetanus/diphtheria/pertussis, acel(Tdap) 03/10/12 Recorded 1Result Comment: [facility]: [phone] Medications amLODIPine 10 mg oral tablet 10 mg, 1, tablet, By Mouth, Daily, # 90 tablet, Refills 1, Tot. Refills 1, Maintenance, 03/23/24 2:01:00 PM EDT, Route to Pharmacy Electronically, [facility], Partial fill upon patient request if the prescription is for a schedule II opioid drug., 153, cm, 11/10/23 8:53:00 EDT, Height, 77,kg, 07/28/23 16:09:00 EST, Dry Weight Start Date: 03/23/24 Status: Ordered Quantity: 90.0 Unit: tablet Repeat number: 2 Cane Cane, See Instructions, # 1 each, Refills 0, Tot. Refills 0, Maintenance, use as directed for dx knee pain (M25.569) mass surg 532 1401, 11/14/23 10:46:00 AM EDT, Supply, 153, cm, 11/10/23 8:53:00 EDT, Height, 77, kg, 07/28/23 16:09:00 EST, Dry Weight Start Date: 11/14/23 Status: Ordered Quantity: 1.0 Unit: each Repeat number: 1 capsaicin 0.025% topical cream 1 application, Topically, 2 times a day, PRN Pain , Moderate, # 60 Gm, 0 Refills, Maintenance, 06/30/22 8:20:00 PM EST, Cream, [facility]/pharmacy #[id number], Partial fill upon patient request if the prescriptionis for a schedule II opioid drug., 1 application Topically 2 times a day,PRN:Pain , Moderate, 155.5, cm, 06/26/22 8:57:00 EST, Height Start Date: 06/30/22 Status: Ordered Quantity: 60.0 Unit: g Repeat number: 1 Compression Stockings See Instructions, # 1 each, Maintenance, surgical, calf length 20-30 mm Hg, 11/14/23 10:47:00 AM EDT, Supply, 153, cm, 11/10/23 8:53:00 EDT, Height, 77, kg, 07/28/23 16:09:00 EST, Dry Weight Start Date: 11/14/23 Status: Ordered Quantity: 1.0 Unit: each Repeat number: 1 Problem List Condition Confirmation Course Effective Dates Status Health St atus Informant HTN (hypertension) Confirmed Active Obese class I Confirmed Active Social History Social History Type Response Smoking Status Never (less than 100 in lifetime) entered on: 03/21/21 Sex Sex Representation Male (finding) Patient Care team information Care Team Personnel Name: Not on Staff, PCP Position: [facility] Physician (General Medicine) Member Role: PCP Care Team Related Persons Name: EUGENIA WINTERS Name: SINGH ALONZO Insurance Providers Guarantor name: AMELIE Health Plan Information #: 1 Payer: [employer] Member Number: [id number] Policy Number: NA Group Number: NA Health Plan Information #: 2 Payer: [employer] Member Number: [id number] Policy Number: NA Group Number: NA
--- OUTSIDE RECORDS SUMMARY | 2024-09-29 15:20 | XMS_ITS | Continuity of Care Document ---
Author Organization [facility] Adult Address [address] [place] [address]- Care Team Providers Care It Business Process Architect Name Role Phone Not on Staff, PCP Primary Care Physician Unavail able [facility]counter [facility] Date(s): 08/22/24 - 09/21/24 [facility] Adult [address] [place] [address]- Attending Physician: Juan M Pope Admitting Physician: Juan M Pope Referring Physician: AdmtrJuan M Encounter Type: Triage Allergies, Adverse Reactions, Alerts No Known Medication [...] Recorded tetanus/diphtheria/pertussis, acel(Tdap) 03/10/12 Recorded 1Result Comment: [facility]: [phone] Medications amLODIPine 10 mg oral tablet 10 mg, 1, tablet, By Mouth, Daily, # 90 tablet, Refills 1, Tot. Refills 1, Maintenance, 03/23/24 2:01:00 PM EDT, Route to Pharmacy Electronically, [facility], Partial fill upon patient request if [...] Refills, Maintenance, 06/30/22 8:20:00 PM EST, Cream, [facility]/pharmacy #[id number], Partial fill upon patient request if [...] Personnel Name: Not on Staff, PCP Position: S Physician (General Medicine) Member Role: PCP Care Team Related Persons Name: EUGENIA WINTERS Name: SINGH ALONZO Insurance Providers Guarantor name: AMELIE Health Plan Information #: 1 Payer: [employer] Member Number: AMELIE Policy Number: NA Group Number: NA
== END 2024-09-29 12:44 | disposition home or self-care (01) ==
LOC: HO.HOSX 12:43
PROVIDERS: Visit Provider Physician Assistant
DX: Z13.89 Encounter for screening for other disorder (principal)

== ENCOUNTER 2024-12-14 15:30 | Outpatient (REF) | payer MEDICARE, SELFPAY ==
--- NOTE | ~2024-12-14 | US_ITS ---
CLINICAL HISTORY: R97.20 - Elevated prostate specific antigen [PSA] US renal with Color Doppler Comparison: None Findings: Right kidney normal size and echotexture, 11.8 cm length. Pelvicaliectasis. Probable vascular reflector rather than caliceal stone lower pole. Normal color flow. No renal masses. Left kidney normal size and echotexture, 10.7 cm length. No hydronephrosis. Normal color flow. Parapelvic cyst versus caliceal diverticulum midpole measuring 1.5 x 1.4 x 1.3 cm. Partially decompressed urinary bladder. Bladder volume 39 cc. Prostate volume 43.2 mL. Impression: 1. 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 Probable vascular reflector rather than nephrolithiasis right kidney. Suspect extrarenal pelvis rather than hydronephrosis on the right. No evidence of hydroureter. 2. Parapelvic cyst versus caliceal diverticulum midpole left kidney. No evidence of obstructive uropathy on the left. 3. Partially decompressed urinary bladder. 4. Prostate volume 43.2 mL. This document has been electronically signed by: Fidel Astorga MD on 12/15/2024 12:23:29
--- OUTSIDE RECORDS SUMMARY | 2024-12-14 15:32 | XMS_ITS | Data Portability ---
Author Organization [facility], [facility] Address [address] [place] [address] Assessment Encounter Date Assessment Date Assessment LastModified [...] By Organization Details Last Modified Time 12/16/2018 [id number] leg and ankle edema: care instructions ddeserres [...] ts may be effec jacob. Not Available [address], [address], 12/10/2018 11:08:56 12/11/19 19 12/10/2018 BMP, serum or plasm a BUN 13 mg/dL 7-18 Not Available [address], [address], 12/10/2018 11:08:56 12/11/19 19 12/10/2018 BMP, serum or plasm a creatinine 1.0 mg/dL 0.8-1. 3 Not Available [address], [address], 12/10/2018 11:08:56 12/11/19 19 12/10/2018 BMP, serum or plasm a B/C 13.0 ratio Not Available [address], [address], 12/10/2018 11:08:56 12/11/19 19 12/10/2018 BMP, serum or plasm a GFR -non 78.1 mL/mi n Recom everton d GFR by the Natio nal Kidne y Found ation >60 mL/mi n/1.7 3m2 - Merly l <60 mL/mi n/1.7 3m2 - Chron ic Kidne y Disea se <15 mL/mi n/1.7 3m2 - Kidne y Failu re Not Available [address], [address], 12/10/2018 11:08:56 12/11/19 19 12/10/2018 BMP, serum or plasm a GFR - if 94.5 mL/mi n For Afric an Ameri can patie nts: Resul ts Multi plied by 1.21 Not Available [address], [address], 12/10/2018 11:08:56 12/11/19 19 12/10/2018 BMP, serum or plasm a sodium 141 mmol/ L 136-14 5 Not Available [address], [address], 12/10/2018 11:08:56 12/11/19 19 12/10/2018 BMP, serum or plasm a potassium 4.5 mmol/ L 3.5-5. 1 Not Available [address], [address], 12/10/2018 11:08:56 12/11/19 19 12/10/2018 BMP, serum or plasm a chloride 106 mmol/ L 96-107 Not Available [address], [address], 12/10/2018 11:08:56 12/11/19 19 12/10/2018 BMP, serum or plasm a anion gap 7.8 5.0-15 .0 Not Available [address], [address], 12/10/2018 11:08:56 12/11/1912/10/2018 BMP, serum or plasm a CO2 27 mmol/ L 21-32 Not Available [address], [address], 12/10/2018 11:08:56 12/11/1912/10/2018 BMP, serum or plasm a calcium 8.6 mg/dL 8.5-10 .3 Not Available [address], [address], 12/10/2018 11:08:56 12/11/1912/10/2018 uric acid, serum or plasm a uric acid 4.2 mg/dL 3.5-7. 2 Not Available [address], [address], 12/10/2018 11:08:57 12/11/19 19 12/10/2018 C-roseanne ctive prote in, quant itati ve, serum or plasm a C-reactive protein -quant 5.8 mg/L 0.0-9. 0 Not Available [address], [address], 12/10/2018 11:08:57 12/11/19 19 12/10/2018 ESR (eryt hrocy te sedim entat ion rate) , blood sed rate 2.0 0.0-20 .0 Not Available [address], [address], 12/10/2018 11:50:51 07/07/2007/08/2019 BMP, serum or plasm a glucose 99 mg/dL 70-100 Not Available [address], [address], 07/08/2019 10:44:32 07/07/20 19 07/08/2019 BMP, serum or plasm a BUN 12 mg/dL 7-18 Not Available [address], [address], 07/08/2019 10:44:32 07/07/2007/08/2019 BMP, serum or plasm a creatinine 1.0 mg/dL 0.8-1. 3 Not Available [address], [address], 07/08/2019 10:44:32 07/07/2007/08/2019 BMP, serum or plasm a B/C 12.0 ratio Not Available [address], [address], 07/08/2019 10:44:32 07/07/2007/08/2019 BMP, serum or plasm a GFR -non 77.8 mL/mi n Recom everton d GFR by the Natio nal Kidne y Found ation >60 mL/mi n/1.7 3m2 - Merly l <60 mL/mi n/1.7 3m2 - Chron ic Kidne y Disea se <15 mL/mi n/1.7 3m2 - Kidne y Failu re Not Available [address], [address], 07/08/2019 10:44:32 07/07/20 19 07/08/2019 BMP, serum or plasm a GFR - if 94.2 mL/mi n For Afric an Ameri can patie nts: Resul ts Multi plied by 1.21 Not Available [address], [address], 07/08/2019 10:44:32 07/07/20 19 07/08/2019 BMP, serum or plasm a sodium 142 mmol/ L 136-14 5 Not Available [address], [address], 07/08/2019 10:44:32 07/07/2007/08/2019 BMP, serum or plasm a potassium 4.4 mmol/ L 3.5-5. 1 Not Available [address], [address], 07/08/2019 10:44:32 07/07/2007/08/2019 BMP, serum or plasm a chloride 104 mmol/ L 96-107 Not Available [address], [address], 07/08/2019 10:44:32 07/07/2007/08/2019 BMP, serum or plasm a anion gap 9.9 5.0-15 .0 Not Available [address], [address], 07/08/2019 10:44:32 07/07/2007/08/2019 BMP, serum or plasm a CO2 28 mmol/ L 21-32 Not Available [address], [address], 07/08/2019 10:44:32 07/07/2007/08/2019 BMP, serum or plasm a calcium 8.7 mg/dL 8.5-10 .3 Not Available [address], [address], 07/08/2019 10:44:32 07/07/2007/08/2019 lipid panel , serum cholesterol 160 mg/dL <200 mg/dl Genet able 200-2 39 mg/dl Borde rline High >240 mg/dl High Not Available [address], [address], 07/08/2019 10:44:33 07/07/2007/08/2019 lipid panel , serum triglyceride s 75 mg/dL <150 mg/dL Merly l 150-1 99 mg/dL Borde rline High 200-4 99 mg/dL High >500 mg/dL Very High Not Available [address], [address], 07/08/2019 10:44:33 07/07/2007/08/2019 lipid panel , serum direct HDL 41 mg/dL <40 mg/dl - Major Risk for CHD >60 mg/dl - Negat ronald Risk for CHD Not Available [address], [address], 07/08/2019 10:44:33 07/07/2007/08/2019 LDL, direc t, serum direct LDL 108 mg/dL RISK CATEG ORY LDL GOAL _ CHD or CHD Risk Equiv alent s <100 mg/dl (10-y ear risk >20%) 2+ Risk Facto rs <130 mg/dl (10-y ear risk <= 20%) 0-1 Risk Facto r? <160 mg/dl ? Almos t all peopl e with 0-1 risk facto r have a 10 year risk <10%, thus 10 year risk asses ment in peopl e with 0-1 risk facto r is not flor elizabeth. Not Available [address], [address], 07/08/2019 10:44:34 08/30/19 21 08/30/2020 BMP, serum or plasm a glucose 113 mg/dL 70-100 high Not Available [address], [address], 08/30/2020 13:55:42 08/30/19 21 08/30/2020 BMP, serum or plasm a BUN 15 mg/dL 7-18 Not Available [address], [address], 08/30/2020 13:55:42 08/30/19 21 08/30/2020 BMP, serum or plasm a creatinine 1.0 mg/dL 0.8-1. 3 Not Available [address], [address], 08/30/2020 13:55:42 08/30/19 21 08/30/2020 BMP, serum or plasm a B/C 15.0 ratio Not Available [address], [address], 08/30/2020 13:55:42 08/30/19 21 08/30/2020 BMP, serum or plasm a GFR -non 77.6 mL/mi n Recom everton d GFR by the Natio nal Kidne y Found ation >60 mL/mi n/1.7 3m2 - Merly l <60 mL/mi n/1.7 3m2 - Chron ic Kidne y Disea se <15 mL/mi n/1.7 3m2 - Kidne y Failu re Not Available [address], [address], 08/30/2020 13:55:42 08/30/19 21 08/30/2020 BMP, serum or plasm a GFR - if 93.9 mL/mi n For Afric an Ameri can patie nts: Resul ts Multi plied by 1.21 Not Available [address], [address], 08/30/2020 13:55:42 08/30/19 21 08/30/2020 BMP, serum or plasm a sodium 143 mmol/ L 136-14 5 Not Available [address], [address], 08/30/2020 13:55:42 08/30/19 21 08/30/2020 BMP, serum or plasm a potassium 4.1 mmol/ L 3.5-5. 1 Not Available [address], [address], 08/30/2020 13:55:42 08/30/19 21 08/30/2020 BMP, serum or plasm a chloride 106 mmol/ L 96-107 Not Available [address], [address], 08/30/2020 13:55:42 08/30/19 21 08/30/2020 BMP, serum or plasm a anion gap 10.0 5.0-15 .0 Not Available [address], [address], 08/30/2020 13:55:42 08/30/19 21 08/30/2020 BMP, serum or plasm a CO2 27 mmol/ L 21-32 Not Available [address], [address], 08/30/2020 13:55:42 08/30/19 21 08/30/2020 BMP, serum or plasm a calcium 8.7 mg/dL 8.5-10 .3 Not Available [address], [address], 08/30/2020 13:55:42 08/30/19 21 08/30/2020 lipid panel , serum cholesterol 168 mg/dL <200 mg/dl Genet able 200-2 39 mg/dl Borde rline High >240 mg/dl High Not Available [address], [address], 08/30/2020 13:55:43 08/30/19 21 08/30/2020 lipid panel , serum triglyceride s 71 mg/dL <150 mg/dL Merly l 150-1 99 mg/dL Borde rline High 200-4 99 mg/dL High >500 mg/dL Very High Not Available [address], [address], 08/30/2020 13:55:43 08/30/19 21 08/30/2020 lipid panel , serum direct HDL 47 mg/dL <40 mg/dl - Major Risk for CHD >60 mg/dl - Negat ronald Risk for CHD Not Available [address], [address], 08/30/2020 13:55:43 08/30/19 21 08/30/2020 LDL, mylau arund , serum (OBS) LDL - calculated 106.8 RISK CATEG ORY LDL GOAL _ CHD or CHD Risk Equiv alent s <100 mg/dl (10-y ear risk >20%) 2+ Risk Facto rs <130 mg/dl (10-y ear risk <= 20%) 0-1 Risk Facto r? <160 mg/dl ? Almos t all peopl e with 0-1 risk facto r have a 10 year risk <10%, thus 10 year risk asses ment in peopl e with 0-1 risk facto r is not neces glenn. Not Available [address], [address], 08/30/2020 13:55:44 02/13/20 21 02/12/2021 LIPID PANEL cholesterol 148 mg/dL <200 mg/dl Genet able 200-2 39 mg/dl Borde rline High >240 mg/dl High Not Available [address], [address], 02/12/2021 14:06:18 02/13/20 21 02/12/2021 LIPID PANEL triglyceride s 54 mg/dL <150 mg/dL Merly l 150-1 99 mg/dL Borde rline High 200-4 99 mg/dL High >500 mg/dL Very High Not Available [address], [address], 02/12/2021 14:06:18 02/13/20 21 02/12/2021 LIPID PANEL direct HDL 42 mg/dL <40 mg/dl - Major Risk for CHD >60 mg/dl - Negat ronald Risk for CHD Not Available [address], [address], 02/12/2021 14:06:18 02/13/20 21 02/12/2021 LDL - CALCU LATED LDL - calculated 95.2 RISK CATEG ORY LDL GOAL _ CHD or CHD Risk Equiv alent s <100 mg/dl (10-y ear risk >20%) 2+ Risk Facto rs <130 mg/dl (10-y ear risk <= 20%) 0-1 Risk Facto r? <160 mg/dl ? Almos t all peopl e with 0-1 risk facto r have a 10 year risk <10%, thus 10 year risk asses ment in peopl e with 0-1 risk facto r is not flor elizabeth. Not Available [address], [address], 02/12/2021 14:06:19 02/13/20 21 02/12/2021 BASIC METAB OLIC PANEL glucose 105 mg/dL 70-100 high Not Available [address], [address], 02/12/2021 15:23:25 02/13/20 21 02/12/2021 BASIC METAB OLIC PANEL BUN 11 mg/dL 7-18 Not Available [address], [address], 02/12/2021 15:23:25 02/13/20 21 02/12/2021 BASIC METAB OLIC PANEL creatinine 0.9 mg/dL 0.8-1. 3 Not Available [address], [address], 02/12/2021 15:23:25 02/13/20 21 02/12/2021 BASIC METAB OLIC PANEL B/C 12.2 ratio Not Available [address], [address], 02/12/2021 15:23:25 02/13/20 21 02/12/2021 BASIC METAB OLIC PANEL GFR -non 87.7 mL/mi n Recom everton d GFR by the Natio nal Kidne y Found ation >60 mL/mi n/1.7 3m2 - Merly l <60 mL/mi n/1.7 3m2 - Chron ic Kidne y Disea se <15 mL/mi n/1.7 3m2 - Kidne y Failu re Not Available [address], [address], 02/12/2021 15:23:25 02/13/20 21 02/12/2021 BASIC METAB OLIC PANEL GFR - if 106.1 mL/mi n For Afric an Ameri can patie nts: Resul ts Multi plied by 1.21 Not Available [address], [address], 02/12/2021 15:23:25 02/13/20 21 02/12/2021 BASIC METAB OLIC PANEL sodium 141 mmol/ L 136-14 5 Not Available [address], [address], 02/12/2021 15:23:25 02/13/20 21 02/12/2021 BASIC METAB OLIC PANEL potassium 4.1 mmol/ L 3.5-5. 1 Not Available [address], [address], 02/12/2021 15:23:25 02/13/20 21 02/12/2021 BASIC METAB OLIC PANEL chloride 107 mmol/ L 96-107 Not Available [address], [address], 02/12/2021 15:23:25 02/13/20 21 02/12/2021 BASIC METAB OLIC PANEL anion gap 9.5 5.0-15 .0 Not Available [address], [address], 02/12/2021 15:23:25 02/13/20 21 02/12/2021 BASIC METAB OLIC PANEL CO2 25 mmol/ L 21-32 Not Available [address], [address], 02/12/2021 15:23:25 02/13/20 21 02/12/2021 BASIC METAB OLIC PANEL calcium 8.2 mg/dL 8.5-10 .3 low FRANCIE=V erifi ed by Kg zarate Not Available [address], [address], 02/12/2021 15:23:25 02/13/20 21 02/14/2021 QUANT IFERO N TB GOLD PLUS, JOE nil 0.02 IU/mL Not Available [address], [address], 02/14/2021 14:35:03 02/13/20 21 02/14/2021 QUANT IFERO N TB GOLD PLUS, JOE TB1 antigen 0.23 IU/mL Not Available [address], [address], 02/14/2021 14:35:03 02/13/20 21 02/14/2021 QUANT IFERO N TB GOLD PLUS, JOE TB2 antigen 0.28 IU/mL Not Available [address], [address], 02/14/2021 14:35:03 02/13/20 21 02/14/2021 QUANT IFERO N TB GOLD PLUS, JOE mitogen 9.91 IU/mL Not Available [address], [address], 02/14/2021 14:35:03 02/13/20 21 02/14/2021 QUANT IFERO N TB GOLD PLUS, JOE tbgp Negati ve negati ve Not Available [address], [address], 02/14/2021 14:35:03 12/10/19 19 12/09/2018 XR, foot [...] langea l joint. Electr onical ly signed Read[facility] rodriguez Physic dejan: Lizandro manley [facility] (Imaging) [address], [place], [address], 12/10/2018 08:51:47 Result Notes None recorded. Problems Name Problem SNOMED Code Status Onset Date Resolution Date Notes Provider Name and Address Organization Details Recorded Time Diverticul itis of colon 294350971 Completed 07/31/2014 Carlos Tyson MD [address] [place] [address], [phone] , [facility] 15:19:00 Low back pain 988829265 Completed 03/08/2012 Not Available [facility] 3 03:15:09 Cough 06657940 Completed 03/08/2012 Not Available [facility] 3 03:15:09 Essential hypertensi on 02929725 Active Evelin Ambrocio aislinn [facility] 6 15:54:38 Glucose level outside reference range 531292948 Completed 03/08/2012 Not Available [facility] 3 03:15:09 Urolith Completed 07/31/2014 Carlos Tyson MD [address] [place] [address], [phone] , [facility] 15:19:00 Malaise and fatigue 971760845 Completed 06/03/2011 Not Available [facility] 3 03:15:09 Knee pain Completed 201509/04/2020 Carlos Tyson MD [address] [place] [address], [phone] , [facility] 15:47:08 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 Procedures Surgical History Date Name Laterality Status Provider Name and Address Organization Details Recorded Time 8 Medicare Wellness Visit completed Saranya Pierre Maximiliano [facility] 07/05/2018 08:44:21 8 Advanced Care Planning completed Saranya Pierre Maximiliano [facility] 07/05/2018 08:44:32 7 Medicare Wellness Visit completed Tasha Price [facility] 01/07/2017 14:13:44 6 Medicare Wellness Visit completed Roz Boland LPN [facility] 08/06/2015 09:00:19 5 Medicare Wellness Visit completed Aaliyah Hollingsworth LPN [facility] 07/31/2014 14:55:22 5 Medicare Annual Wellness Visit completed Aaliyah Hollingsworth LPN [facility] 07/31/2014 15:08:29 5 Medicare Risk for Falls Screen completed Aaliyah Hollingsworth LPN [facility] 07/31/2014 15:08:29 3 Medicare Wellness Visit completed Shari Jeffery [facility] 07/25/2013 08:56:35 2 Medicare Wellness Visit completed Cuba Fior SILVA [facility] 03/08/2012 10:02:24 2 Treatment and Advice completed Isaura Mancuso Mph, LPT [address] [place], [address], [facility] 08/07/2011 11:01:45 2 Treatment and Advice completed Isaura Mancuso Mph, LPT [address] [place], [address], [facility] 08/04/2011 11:11:29 2 Treatment and Advice completed Isaura Mancuso Mph, LPT [address] [place], [address], [facility] 08/01/2011 10:59:48 Imaging Results Imaging Date Name Status LastModified by Organiz ation Details LastModified Time 12/09/2018 XR, foot completed [facility] (Imaging) [address], [place], [address], 12/10/2018 08:51:47 Procedure Notes None recorded. Medical [...] completed Not Available Not Available Not Available [facility] 3 Fish Oil 684 mg-1,200 mg capsule,del ayed release Take 1 capsule every day by oral route. 04/17 completed Not Available Not Available Not Available Fluad Quad 2979-1564(6 5yr up)(PF) 60 mcg (15 mcg x 4)/0.5mL IM syringe [facility] 09/04 completed Not Available Not Available Not Available Vitals Date Recorded Body height Body mass index (BMI) Body weight Heart rate Systolic blood pressure Diastolic blood pressure Provider Name and Address Organization Details Last Updated DateTime 9 157.48 cm 33.7 kg/m2 20497 g 72 /min 116 mm[Hg] 72 mm[Hg] Sin Gutiérrez [facility] 9 12:09:07 Date Recorded Oxygen saturation Oxygen saturation in Arterial blood by Pulse oximetry Provider Name and Address Organization Details Last Updated DateTime 12/16/2018 97 % 97 % Milagros Medrano PA-C [address] [place] [address], [phone], [facility] 12/16/2018 15:55:29 Date Recorded Body height Body mass index (BMI) Body weight Heart rate Systolic blood pressure Diastolic blood pressure Provider Name and Address Organization Details Last Updated DateTime 9 157.48 cm 33.5 kg/m2 54996.1 g 84 /min 112 mm[Hg] 64 mm[Hg] Saranya Kaba user, [facility] 9 15:31:43 Date Recorded Body height Provider Name an d Address Organization Details Last Updated DateTime 07/18/2019 157.48 cm Malaika Cerda [facility] 07/18/2019 16:11:20 Date Recorded Body height Body mass index (BMI) Body weight Heart rate Systolic blood pressure Diastolic blood pressure Provider Name and Address Organization Details Last Updated DateTime 0 157.48 cm 33.3 kg/m2 10343.5 1 g 80 /min 118 mm[Hg] 74 mm[Hg] Saranya Kaba user, [facility] 0 11:27:00 Date Recorded Body height Provider Name an d Address Organization Details Last Updated DateTime 09/04/2020 [address] [facility] 09/04/2020 15:08:58 Date Recorded Systolic blood pressure Diastolic blood pressure Provider Name and Address Organization Details Last Updated DateTime 09/10/2020 122 mm[Hg] 78 mm[Hg] Saranya Ignacio [facility] 09/10/2020 14:42:18 Social History Question Answer Notes LastModified by Organizat ion Details LastModified Time Tobacco Smoking Status Never Smoker Not Available [facility] 06/12/2011 04:53:49 Do You Have An Advance Directive? No 7 Information not available 06/12/2011 Are You Blind Or Do You Have Difficulty Seeing? No Information not available 07/25/2013 What Is Your Level Of Caffeine Consumption? Moderate Tea In The Am Information not available 02/01/2015 How Much Tobacco Do You Chew? None 7 Information not available 06/12/2011 Are You Deaf Or Do You Have Serious Difficulty Hearing? No Information not available 07/25/2013 What Type Of Diet Are You Following? VEGETARIAN [email or web address] Information not available 02/01/2015 How Many Days In The Past Year Have You Had A Heavy Drinking Consumption (4+ Female, 5+ Male)? 0 Information not available 01/17/2013 Are There Any Guns Present In Your Home? No [email or web address] Information not available 02/01/2015 Live Alone Or With Others? With Others Lives With Son & His Family, 1 18 Yo GRSON- Tyrell Information not available 03/08/2012 Patient Has Health Care Proxy Signed And In Chart Yes Negin [email or web address] Information not available 07/14/2018 Marital Status Jovannan,, They Are All Hinduism Information not available 03/08/2012 Mosquito Repellent Used Routinely Yes [email or web address] Information not available 02/01/2015 What Was The Date Of Your Most Recent Tobacco Screening? 09/04/2020 Information not available 09/04/2020 How Many Children Do You Have? 4 2 Girls , 2 Boys Information not available 07/05/2018 Seat Belts Used Routinely Yes Information not available 07/25/2013 Smoke Alarm In Home Yes Information not available 07/25/2013 What Types Of Sporting Activities Do You Participate In? Walking Information not available 03/08/2012 Do You Use Sunscreen Routinely? Yes [email or web address] Information not available 07/05/2018 Do You Have Difficulty Walking Or Climbing Stairs? No Information not available 07/25/2013 Sex: Unknown Functional Status Question Answer Note LastModified by Organizat ion Details LastModified Time What is your level of alcohol consumption? None Information not available 01/17/2013 Do you or have you ever used smokeless tobacco? Never used smokeless tobacco Information not available 08/17/2019 Do you have difficulty doing errands alone? No Information not available 07/25/2013 What is your occupation? not working Information not available 03/08/2012 Do you have difficulty dressing or bathing? No Information not available 07/25/2013 Do you or have you ever used e-cigarettes or vape? Never used electronic cigarettes Information not available 08/17/2019 Mental Status Question Answer Note LastModified by Organization D etails LastModified Time Do you have difficulty concentrating, remembering or making decisions? No Information no t available 07/25/2013 Family History Relationship Description Onset Age of this Age Resolved Age Notes LastModified by Organization Details LastModified Time Father Problem 88 cough Not available 0 07/31/2014 15:32:18 Sister Problem A&W, lives in [place] , [facility] Not available 07/31/2014 15:32:19 Mother Problem 70 heart proble m Not available 07/31/2014 15:32:19 Notes:No family hx DM. Medical History Condition Response Hypertension Y Immunizations Vaccine Type Date Status Note Provider Nam e and Address Organization Details Recorded Time Tdap 2 completed Not Available [facility] 08/13/2019 02:26:35 pneumococcal polysaccharide PPV23 2 completed Not Available [facility] 08/13/2019 02:14:35 influenza, unspecified formulation 0 completed Not Available [facility] 06/11/2011 05:22:41 Influenza, high-dose, trivalent, PF 5 completed Not Available [facility] 08/13/2019 02:19:19 Influenza, high-dose, trivalent, PF 6 completed Not Available [facility] 08/13/2019 02:25:39 Pneumococcal conjugate PCV 13 6 completed Not Available [facility] 08/13/2019 02:28:12 Influenza, high-dose, trivalent, PF 6 completed Not Available [facility] 08/13/2019 02:31:53 Influenza, split virus, trivalent, preservative 3 completed Carlos Tyson MD [address] [place] [address], [phone], [facility] 07/25/2013 09:20:31 Influenza, high-dose, trivalent, PF 7 completed Not Available [facility] 08/13/2019 02:37:57 zoster live 4 completed SHIRA Valdes, [facility] 07/31/2014 15:41:15 Influenza, high-dose, trivalent, PF 8 completed Not Available [facility] 08/13/2019 02:33:02 Influenza, high-dose, trivalent, PF 0 completed SHAHAB Meyer [facility] 08/17/2019 13:53:51 Influenza, split virus, quadrivalent, preservative 0 completed SHAHAB Meyer, [facility] 05/07/2020 09:04:52 Past Encounters Encounter ID Performer Location Encounter Start Date Encounter Closed Date Diagnosis/Indication Diagnosis SNOMED-CT Code Diagnosis ICD10 Code Diagnosis Note [id number] Bruna Betancourt NP FP, [facility], OFFICE [address] [place] [address] 04/09/2009 15:17:04 04/12/2009 13:40:32 [id number] Tasneem Zuniga NP FP, [facility], OFFICE [address] [place] [address] 04/11/2009 15:59:43 04/18/2009 10:30:29 [id number] Bruna Betancourt NP FP, [facility], OFFICE [address] [facility] [place] [address] 04/16/2009 15:34:34 04/18/2009 11:40:07 [id number] [facility] LAB LAB - [address] [place] [address] 04/12/2009 08:23:33 04/12/2009 08:29:21 [id number] CLARA Arthur, [facility], OFFICE [address] [place] [address] [place] [address] 06/05/2009 13:05:17 06/06/2009 15:27:45 [id number] CLARA Arthur, [facility], OFFICE [address] [place] [address] [place] [address] 06/13/2009 08:24:17 06/19/2009 09:31:08 [id number] [facility] ASW SPECIALIST Radiology , [address] [place] [address] 06/13/2009 12:33:50 06/14/2009 14:44:27 [id number] CLARA Choi, [facility], OFFICE [address] [place] [address] [place] [address] 03/22/2010 09:10:14 03/27/2010 14:48:15 [id number] CLARA Arthur, [facility], OFFICE [address] [place] [address] [place] [address] 06/11/2010 08:36:10 06/14/2010 11:17:06 [id number] CLARA Arthur, [facility], OFFICE [address] [place] [address] [place] [address] 06/25/2010 08:21:03 06/28/2010 14:59:12 [id number] [facility] QUANTITATIVE SOFTWARE ENGINEER Radiology , [address] [place] [address] 06/25/2010 08:53:17 06/26/2010 14:01:07 [id number] Carlos Tyson MD FP, [facility], OFFICE [address] [place] [place] [address] 04/04/2011 08:25:19 04/04/2011 09:46:22 [id number] Carlos Tyson MD , [facility], OFFICE [address] [facility] [place] [place] [address] 06/03/2011 07:53:02 06/03/2011 08:51:16 [id number] Isaura Mancuso Mph, LPT Physical Therapy, [facility] [address] [place] [place] [address] 08/01/2011 09:29:38 08/01/2011 13:55:30 [id number] Isaura Mancuso Mph, LPT Physical Therapy, [address] [place] [place] [address] 08/04/2011 10:17:29 08/04/2011 11:19:02 [id number] Isaura Mancuso Mph, LPT Physical Therapy, [address] [place] [place] [address] 08/07/2011 09:09:53 08/07/2011 11:07:59 [id number] Isaura Mancuso Mph, LPT Physical Therapy, [address] [place] [place] [address] 08/11/2011 10:21:51 08/11/2011 11:19:12 [id number] Isaura Mancuso Mph, LPT Physical Therapy, [address] [place] [place] [address] 08/18/2011 10:18:34 08/18/2011 14:53:17 [id number] Isaura Mancuso Mph, LPT Physical Therapy, [address] [place] [place] [address] 08/25/2011 08:54:54 08/25/2011 09:47:57 [id number] Carlos Tyson MD , [facility], OFFICE [address] [facility] [place] [place] [address] 03/08/2012 09:46:19 03/08/2012 10:55:28 [id number] Carlos Tyson MD , [facility], OFFICE [address] [facility] [place] [place] [address] 09/16/2012 09:22:09 09/16/2012 10:13:39 [id number] Carlos Tyson MD , [facility], OFFICE [address] [place] [address] 6 10/12/2012 07:27:25 10/12/2012 08:01:03 [id number] Calros Tyson MD , [facility], OFFICE [address] [place] [address] 01/17/2013 08:20:56 01/17/2013 09:07:18 [id number] Carlos Tyson MD , [facility], OFFICE [address] [place] [address] 6 07/25/2013 08:50:09 07/25/2013 09:36:21 Adult health examination [id number] see Risk Assessment and Lifestyle Change Counseling section above Counseling [id number] Essential hypertension 63093410 [id number] Carlos Tyson MD , [facility], OFFICE [address] [place] [address] 6 01/16/2014 08:09:23 01/16/2014 09:05:01 Benign essential hypertension 5794942 Blood pressure at goal Knee pain 54233149 Screening for cancer [id number] Carlos Tyson MD , [facility], OFFICE [address] [place] [address] 6 07/31/2014 14:40:53 07/31/2014 15:42:02 Adult health examination 039023923 see Risk Assessment and Lifestyle Change Counseling section above Influenza vaccine needed [id number] 106 Benign ess ential hypertension 3259254 Blood pressure at goal [id number] Carlos Tyson MD , [facility], OFFICE [address] [place] [address] 6 02/01/2015 08:27:40 02/01/2015 09:10:44 Benign essential hypertension 3481657 Blood pressure at goal Knee pain 26364133 Screening for malignant neoplasm of colon 541196261 [id number] Carlos Tyson MD , [facility], OFFICE [address] [place] [address] 6 08/06/2015 08:43:12 08/06/2015 09:41:39 Adult health examination 806774228 Z00.00 see Risk Assessment and Lifestyle Change Counseling section above Benign ess ential hypertension 1540700 I10 Blood pressure at goal Eruption 806937898 R21 he has some infected cysts on chest Knee pain 78014702 M25.5 61 using voltaren cream Counseling 262450216 Z71 .9 Active or passive immunization 593369016 Z23 [id number] Carlos Tyson MD , [facility], OFFICE [address] [place] [address] 6 02/11/2016 09:07:13 02/11/2016 10:23:49 Benign essential hypertension 5408620 I10 Blood pressure at goal Upper chest pain 9805180 08 R07.9 Chest pain 07651535 R07. 9 Knee pain 56767853 M25.5 61 using voltaren cream Screening for malignant neoplasm of colon 877772056 Z12.11 [id number] Carlos Tyson MD , [facility], OFFICE [address] [place] [address] 6 04/17/2016 09:21:53 04/17/2016 10:46:49 Active or passive immunization 002777546 Z23 Bilateral cataracts 9572 2003 H26.9 Essential hypertension 34220382 I10 well controlled [id number] Deann Dickson , [facility], OFFICE [address] [place] [address] 6 01/07/2017 14:07:34 01/07/2017 14:43:05 Adult health examination 312547535 Z00.00 see Risk Assessment and Lifestyle Change Counseling section above Counseling 729570595 Z71 .9 Benign ess ential hypertension 8394818 I10 - Blood pressure at goal- Continue current medication s Cramp in lower limb 4499 87143 R25.2 - Will do ROSALBA for evaluation of blood flow Knee pain 01939703 M25.5 69 - Will continue with diclofenac gel and ice- Declines xray at this time Obesity 326061223 E66.9 - Discussed nutrition and regular exercise- Weight can improve blood pressure and cholestero l, as well as blood sugar [id number] Carlos Tyson MD , [facility], OFFICE [address] [place] [address] 6 04/10/2017 11:53:01 04/10/2017 12:13:20 Active or passive immunization 301008548 Z23 Cataract 446120337 H26.9 [id number] MD ADDISON Echols, [facility], OFFICE [address] [place] [address] 6 07/05/2018 08:21:28 07/05/2018 09:26:24 Adult health examination 924180276 Z00.00 see Risk Assessment and Lifestyle Change Counseling section above Depression screening 171 872591 Z13.89 depression screening tool administer ed, entered into emr, scored and discussed, time greater than 7.5 minutes Benign ess ential hypertension 6152592 I10 Blood pressure at goal Active or passive immunization 343546547 Z23 Pain in upper limb 52374 6003 M79.266 [id number] Deann Dickson , [facility], OFFICE [address] [place] [address] 6 12/09/2018 15:35:10 12/10/2018 08:57:17 Pain in right foot 2903597372 45288 M79.671 Unclear etiology, point tenderness , warmth [...] fever, shaking chills, streaking erythema, severe pain. [id number] Deann JAIME [facility], OFFICE [address] [place] [address] 12/16/2018 11:48:34 12/16/2018 12:34:57 Edema of lower extremity 895574393 R60.0 Exam not consistent with CHF exacerbati [...] hemoptysis , chest pain, sudden weight gain. [id number] MD ADDISON Echols, [facility], OFFICE [address] [place] [address] 6 12/31/2018 14:51:40 12/31/2018 17:55:24 Knee pain 65573031 M25.561 using voltaren cream [id number] Carlos Tyson MD , [facility], OFFICE [address] [place] [address] 6 07/18/2019 15:46:47 07/19/2019 18:09:28 [id number] Carlos Tyson MD , [facility], OFFICE [address] [place] [id number] 6 08/17/2019 10:52:16 08/17/2019 11:37:16 Active or passive immunization 249637561 Z23 Essential hypertension 79904275 I10 well controlled [id number] Carlos Tyson MD , [facility], OFFICE [address] [place] [address] 6 09/04/2020 15:06:30 09/06/2020 09:31:21 Essential hypertension 50763623 I10 well controlled Health Concerns Section Related Observation LastModified by Organization Detai ls LastModified Time None Recorded Concern Status LastModified by Organization Details LastModified Time None Recorded Advance Directives Directive N: Payers Encounter Date Sequence Insurance Name Policy Number Policy Geiger Covered Member ID Geiger Member ID Guarantor Name 12/16/2018 1 [facility] [facility] - DOS PRIOR TO 2022 - DUAL ELIGIBLE (MEDICARE REPLACEMENT/AD VANTAGE - HMO) Harjit Lira Serrato [id number] Harjit Serrato 12/31/2018 1 [facility] - DOS PRIOR TO 2022 - DUAL ELIGIBLE (MEDICARE REPLACEMENT/AD VANTAGE - HMO) Harjit Lira Serrato [id number] Harjit Serrato 07/18/2019 1 [facility] - DOS PRIOR TO 2022 - DUAL ELIGIBLE (MEDICARE REPLACEMENT/AD VANTAGE - HMO) Harjit Lira Serrato [id number] Harjit Serrato 08/17/2019 1 [facility] - DOS PRIOR TO 2022 - DUAL ELIGIBLE (MEDICARE REPLACEMENT/AD VANTAGE - HMO) Harjit Lira Serrato [id number] Harjit Serrato 09/04/2020 1 [facility] - DOS PRIOR TO 2022 - DUAL ELIGIBLE (MEDICARE REPLACEMENT/AD VANTAGE - HMO) Harjit Serrato [id number] Harjit Serrato Notes Date Note Type Note [...] nocturnal dyspnea, weight gain, chest pain. 12/09/18 [place] note: Pt reports R foot, ankle swelling. [...] 9am today which helped. Milagros Medrano PA-C [address] [place] [address], [phone] [facility] [place]/16/[place] 15:58:45 9 text/html here to fill out paperwork for [facility] patient has ongoing issues with arthritis and knee pain. He is unable to work at this time. He previously had worked, but had to stop due to these issues. Carlos Tyson MD [address] [place] [address], [phone], [facility] [place] 01/03/2019 06:21:24 9 text/html 07/18/19 LAST OV12/31/18 here to fill out paperwork for [facility] patient has ongoing issues with arthritis and knee pain. He is unable to work at this time. He previously had worked, but had to stop due to these issues. Carlos Tyson MD [address] [place] [address], [phone], [facility] [place] 07/19/2019 18:09:26 0 text/html [facility] HypertensionReported bypatient.Control:Patient [...] to be a problem Carlos Tyson MD [address] [place] [address], [phone], [facility] [place] 08/17/2019 11:35:56 1 text/html [facility] HypertensionReported bypatient.Context:No [...] was notified that the provider location is [facility] Patient location: home During the visit the [...] to be a problem Carlos Tyson MD [address] [place] [address], [phone], [facility] [place] 09/04/[place] 15:49:07
== END 2024-12-14 15:31 | disposition home or self-care (01) ==
LOC: HO.US 15:30
PROVIDERS: PCP Internal Medicine; Visit Provider Urology
DX: R97.20 Elevated prostate specific antigen [PSA] (principal); N40.0 Benign prostatic hyperplasia without lower urinary tract symptoms
CPT/HCPCS: 76775

== ENCOUNTER → 2024-12-14 15:32 | Outpatient (BNV) | payer MEDICARE, SELFPAY | PROVIDERS: PCP Internal Medicine; Visit Provider Radiology Diagnostic Radiology | DX: N28.89 Other specified disorders of kidney and ureter (principal) | CPT/HCPCS: 76775 ==

== ENCOUNTER 2024-12-16 13:24 | Outpatient (AMB) | payer MEDICARE, SELFPAY ==
--- NOTE | 2024-12-16 13:26 | A.OFFVIS_ITS ---
Intake Visit Reasons: 4m/US/PSA Intake Note: Patient is present via telehealth for a 4 month follow up/US/PSA * Renal US 12/15 Urology Medication:NONE Antibiotic Allergy:NONE Blood Thinner:NONE Musical Therapist Required: No Allergies No Known Allergies Allergy (Verified 12/16/24 13:27) HPI Comments Details: 12/16/24-- FU BPH, elevated PSA. Prescribed avodart. reviewed renal US results, has not done repeat PSA. Parapelvic renal cysts. Partially decompressed urinary bladder. Bladder volume 39 cc. Prostate volume 43.2 mL. 08/15/24--Harjit is a 79 year old male past medical history hypertension on amlodipine, who presents to the office as a new patient for elevated PSA. His daughter is here who interprets for him. I have reviewed lab results with them PSA-04/18/2024--8.15 ng/mL. I have discussed that elevated PSA may indicate changes in the prostate including benign enlargement, cancer and an inflammatory condition. I will empirically start an alpha reductase inhibitor Avodart 0.5 mg daily and repeat PSA. I have discussed consider prostate biopsy pending repeat PSA results. [facility] Medical History Hearing loss Obesity, morbid (more than 100 lbs over ideal weight or BMI > 40) Arthritis, rheumatic, acute or subacute HTN (hypertension) Social History Household Members: Spouse Alcohol intake: never Patient Tobacco Use Status: Never used Tobacco service: No Current occupational status: unemployed and disabled Sexual orientation: Straight/Heterosexual Gender identity: Male Review of Systems Const All systems reviewed & are unremarkable except as noted in HPI and below Reports no additional complaints Eyes Reports no additional complaints ENT Reports no additional complaints Card Reports no additional complaints Resp Reports no additional complaints GI Reports no additional complaints Reports as per HPI Musc Reports no additional complaints Skin/Breast Reports system reviewed and no additional complaints, except as documented Neuro Reports no additional complaints Psych Reports no additional complaints Endo Reports no additional complaints Marcin/Lymph Reports no additional complaints Aller/Immun Reports no additional complaints Telehealth Telehealth Telehealth Platform: Telephone Location of provider rendering services: practice address Location of patient: address on file Patient Identification confirmed using: Name, : Yes Telehealth method: voice only Patient verbally consented to treatment: Yes Patient verbally consented to billing insurance company: Yes Patient informed of any privacy concerns related to visit: Yes Minutes spent on Phone/Video with Pt.: 13 Results Reviewed Results Reviewed: Date of Service: 12/14/24 US renal with Color Doppler Comparison: None Findings: Right kidney normal size and echotexture, 11.8 cm length. Pelvicaliectasis. Probable vascular reflector rather than caliceal stone lower pole. Normal color flow. No renal masses. Left kidney normal size and echotexture, 10.7 cm length. No hydronephrosis. Normal color flow. Parapelvic cyst versus caliceal diverticulum midpole measuring 1.5 x 1.4 x 1.3 cm. Partially decompressed urinary bladder. Bladder volume 39 cc. Prostate volume 43.2 mL. Impression: 1. 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 Probable vascular reflector rather than nephrolithiasis right kidney. Suspect extrarenal pelvis rather than hydronephrosis on the right. No evidence of hydroureter. 2. Parapelvic cyst versus caliceal diverticulum midpole left kidney. No evidence of obstructive uropathy on the left. 3. Partially decompressed urinary bladder. 4. Prostate volume 43.2 mL. Assessment & Plan Assessment & Plan (1) Elevated PSA: Code(s): R97.20 - Elevated prostate specific antigen [PSA] Category: Medical (2) BPH (benign prostatic hyperplasia): Code(s): N40.0 - Benign prostatic hyperplasia without lower urinary tract symptoms Category: Medical Plan repeat PSA pending Patient Instructions: The patient had an opportunity to ask questions regarding treatment plan. The patient expressed understanding and agreement with the above treatment plan. The patient is aware they should contact our office by phone for worsening of their current condition or the appearance of new symptoms. Compliance is encouraged with any medications and followup testing that is ordered. It is a privilege to be allowed the opportunity to participate in the urologic care of your patient. If you have any questions or concerns regarding treatment for the above conditions please do not hesitate to contact me. The office telephone contact is [phone]. This note is constructed in part using voice recognition software. While every effort has been made to ensure accuracy blanket cutting machine operator errors may have been included. Yours sincerely, Martin Baltazar MD Coding Level of Care Code Tele Est Pt Level 3 (33454) Diagnoses Elevated PSA R97.20 BPH (benign prostatic hyperplasia) N40.0
--- OUTSIDE RECORDS SUMMARY | 2024-12-16 13:26 | XMS_ITS | Data Portability ---
Author Organization [facility], [facility] Address [address] [place] [address] Assessment Encounter Date Assessment Date Assessment LastModified [...] By Organization Details Last Modified Time 12/16/2018 [id number] leg and ankle edema: care instructions ddeserres [...] ts may be effec jacob. Not Available [address], [address], 12/10/2018 11:08:56 12/11/19 19 12/10/2018 BMP, serum or plasm a BUN 13 mg/dL 7-18 Not Available [address], [address], 12/10/2018 11:08:56 12/11/19 19 12/10/2018 BMP, serum or plasm a creatinine 1.0 mg/dL 0.8-1. 3 Not Available [address], [address], 12/10/2018 11:08:56 12/11/19 19 12/10/2018 BMP, serum or plasm a B/C 13.0 ratio Not Available [address], [address], 12/10/2018 11:08:56 12/11/19 19 12/10/2018 BMP, serum or plasm a GFR -non 78.1 mL/mi n Recom everton d GFR by the Natio nal Kidne y Found ation >60 mL/mi n/1.7 3m2 - Merly l <60 mL/mi n/1.7 3m2 - Chron ic Kidne y Disea se <15 mL/mi n/1.7 3m2 - Kidne y Failu re Not Available [address], [address], 12/10/2018 11:08:56 12/11/19 19 12/10/2018 BMP, serum or plasm a GFR - if 94.5 mL/mi n For Afric an Ameri can patie nts: Resul ts Multi plied by 1.21 Not Available [address], [address], 12/10/2018 11:08:56 12/11/19 19 12/10/2018 BMP, serum or plasm a sodium 141 mmol/ L 136-14 5 Not Available [address], [address], 12/10/2018 11:08:56 12/11/19 19 12/10/2018 BMP, serum or plasm a potassium 4.5 mmol/ L 3.5-5. 1 Not Available [address], [address], 12/10/2018 11:08:56 12/11/19 19 12/10/2018 BMP, serum or plasm a chloride 106 mmol/ L 96-107 Not Available [address], [address], 12/10/2018 11:08:56 12/11/19 19 12/10/2018 BMP, serum or plasm a anion gap 7.8 5.0-15 .0 Not Available [address], [address], 12/10/2018 11:08:56 12/11/1912/10/2018 BMP, serum or plasm a CO2 27 mmol/ L 21-32 Not Available [address], [address], 12/10/2018 11:08:56 12/11/1912/10/2018 BMP, serum or plasm a calcium 8.6 mg/dL 8.5-10 .3 Not Available [address], [address], 12/10/2018 11:08:56 12/11/1912/10/2018 uric acid, serum or plasm a uric acid 4.2 mg/dL 3.5-7. 2 Not Available [address], [address], 12/10/2018 11:08:57 12/11/19 19 12/10/2018 C-roseanne ctive prote in, quant itati ve, serum or plasm a C-reactive protein -quant 5.8 mg/L 0.0-9. 0 Not Available [address], [address], 12/10/2018 11:08:57 12/11/19 19 12/10/2018 ESR (eryt hrocy te sedim entat ion rate) , blood sed rate 2.0 0.0-20 .0 Not Available [address], [address], 12/10/2018 11:50:51 07/07/2007/08/2019 BMP, serum or plasm a glucose 99 mg/dL 70-100 Not Available [address], [address], 07/08/2019 10:44:32 07/07/20 19 07/08/2019 BMP, serum or plasm a BUN 12 mg/dL 7-18 Not Available [address], [address], 07/08/2019 10:44:32 07/07/2007/08/2019 BMP, serum or plasm a creatinine 1.0 mg/dL 0.8-1. 3 Not Available [address], [address], 07/08/2019 10:44:32 07/07/2007/08/2019 BMP, serum or plasm a B/C 12.0 ratio Not Available [address], [address], 07/08/2019 10:44:32 07/07/2007/08/2019 BMP, serum or plasm a GFR -non 77.8 mL/mi n Recom everton d GFR by the Natio nal Kidne y Found ation >60 mL/mi n/1.7 3m2 - Merly l <60 mL/mi n/1.7 3m2 - Chron ic Kidne y Disea se <15 mL/mi n/1.7 3m2 - Kidne y Failu re Not Available [address], [address], 07/08/2019 10:44:32 07/07/20 19 07/08/2019 BMP, serum or plasm a GFR - if 94.2 mL/mi n For Afric an Ameri can patie nts: Resul ts Multi plied by 1.21 Not Available [address], [address], 07/08/2019 10:44:32 07/07/20 19 07/08/2019 BMP, serum or plasm a sodium 142 mmol/ L 136-14 5 Not Available [address], [address], 07/08/2019 10:44:32 07/07/2007/08/2019 BMP, serum or plasm a potassium 4.4 mmol/ L 3.5-5. 1 Not Available [address], [address], 07/08/2019 10:44:32 07/07/2007/08/2019 BMP, serum or plasm a chloride 104 mmol/ L 96-107 Not Available [address], [address], 07/08/2019 10:44:32 07/07/2007/08/2019 BMP, serum or plasm a anion gap 9.9 5.0-15 .0 Not Available [address], [address], 07/08/2019 10:44:32 07/07/2007/08/2019 BMP, serum or plasm a CO2 28 mmol/ L 21-32 Not Available [address], [address], 07/08/2019 10:44:32 07/07/2007/08/2019 BMP, serum or plasm a calcium 8.7 mg/dL 8.5-10 .3 Not Available [address], [address], 07/08/2019 10:44:32 07/07/2007/08/2019 lipid panel , serum cholesterol 160 mg/dL <200 mg/dl Genet able 200-2 39 mg/dl Borde rline High >240 mg/dl High Not Available [address], [address], 07/08/2019 10:44:33 07/07/2007/08/2019 lipid panel , serum triglyceride s 75 mg/dL <150 mg/dL Merly l 150-1 99 mg/dL Borde rline High 200-4 99 mg/dL High >500 mg/dL Very High Not Available [address], [address], 07/08/2019 10:44:33 07/07/2007/08/2019 lipid panel , serum direct HDL 41 mg/dL <40 mg/dl - Major Risk for CHD >60 mg/dl - Negat ronald Risk for CHD Not Available [address], [address], 07/08/2019 10:44:33 07/07/2007/08/2019 LDL, direc t, serum [...] r is not flor elizabeth. Not Available [address], [address], 07/08/2019 10:44:34 08/30/19 21 08/30/2020 BMP, serum or plasm a glucose 113 mg/dL 70-100 high Not Available [address], [address], 08/30/2020 13:55:42 08/30/19 21 08/30/2020 BMP, serum or plasm a BUN 15 mg/dL 7-18 Not Available [address], [address], 08/30/2020 13:55:42 08/30/19 21 08/30/2020 BMP, serum or plasm a creatinine 1.0 mg/dL 0.8-1. 3 Not Available [address], [address], 08/30/2020 13:55:42 08/30/19 21 08/30/2020 BMP, serum or plasm a B/C 15.0 ratio Not Available [address], [address], 08/30/2020 13:55:42 08/30/19 21 08/30/2020 BMP, serum or plasm a GFR -non 77.6 mL/mi n Recom everton d GFR by the Natio nal Kidne y Found ation >60 mL/mi n/1.7 3m2 - Merly l <60 mL/mi n/1.7 3m2 - Chron ic Kidne y Disea se <15 mL/mi n/1.7 3m2 - Kidne y Failu re Not Available [address], [address], 08/30/2020 13:55:42 08/30/19 21 08/30/2020 BMP, serum or plasm a GFR - if 93.9 mL/mi n For Afric an Ameri can patie nts: Resul ts Multi plied by 1.21 Not Available [address], [address], 08/30/2020 13:55:42 08/30/19 21 08/30/2020 BMP, serum or plasm a sodium 143 mmol/ L 136-14 5 Not Available [address], [address], 08/30/2020 13:55:42 08/30/19 21 08/30/2020 BMP, serum or plasm a potassium 4.1 mmol/ L 3.5-5. 1 Not Available [address], [address], 08/30/2020 13:55:42 08/30/19 21 08/30/2020 BMP, serum or plasm a chloride 106 mmol/ L 96-107 Not Available [address], [address], 08/30/2020 13:55:42 08/30/19 21 08/30/2020 BMP, serum or plasm a anion gap 10.0 5.0-15 .0 Not Available [address], [address], 08/30/2020 13:55:42 08/30/19 21 08/30/2020 BMP, serum or plasm a CO2 27 mmol/ L 21-32 Not Available [address], [address], 08/30/2020 13:55:42 08/30/19 21 08/30/2020 BMP, serum or plasm a calcium 8.7 mg/dL 8.5-10 .3 Not Available [address], [address], 08/30/2020 13:55:42 08/30/19 21 08/30/2020 lipid panel , serum cholesterol 168 mg/dL <200 mg/dl Genet able 200-2 39 mg/dl Borde rline High >240 mg/dl High Not Available [address], [address], 08/30/2020 13:55:43 08/30/19 21 08/30/2020 lipid panel , serum triglyceride s 71 mg/dL <150 mg/dL Merly l 150-1 99 mg/dL Borde rline High 200-4 99 mg/dL High >500 mg/dL Very High Not Available [address], [address], 08/30/2020 13:55:43 08/30/19 21 08/30/2020 lipid panel , serum direct HDL 47 mg/dL <40 mg/dl - Major Risk for CHD >60 mg/dl - Negat ronald Risk for CHD Not Available [address], [address], 08/30/2020 13:55:43 08/30/19 21 08/30/2020 LDL, mylau [...] r is not neces glenn. Not Available [address], [address], 08/30/2020 13:55:44 02/13/20 21 02/12/2021 LIPID PANEL cholesterol 148 mg/dL <200 mg/dl Genet able 200-2 39 mg/dl Borde rline High >240 mg/dl High Not Available [address], [address], 02/12/2021 14:06:18 02/13/20 21 02/12/2021 LIPID PANEL triglyceride s 54 mg/dL <150 mg/dL Merly l 150-1 99 mg/dL Borde rline High 200-4 99 mg/dL High >500 mg/dL Very High Not Available [address], [address], 02/12/2021 14:06:18 02/13/20 21 02/12/2021 LIPID PANEL direct HDL 42 mg/dL <40 mg/dl - Major Risk for CHD >60 mg/dl - Negat ronald Risk for CHD Not Available [address], [address], 02/12/2021 14:06:18 02/13/20 21 02/12/2021 LDL - [...] r is not flor el[place]. Not Available [address], [address], 02/12/2021 14:06:19 02/13/20 21 02/12/2021 BASIC METAB OLIC PANEL glucose 105 mg/dL 70-100 high Not Available [address], [address], 02/12/2021 15:23:25 02/13/20 21 02/12/2021 BASIC METAB OLIC PANEL BUN 11 mg/dL 7-18 Not Available [address], [address], 02/12/2021 15:23:25 02/13/20 21 02/12/2021 BASIC METAB OLIC PANEL creatinine 0.9 mg/dL 0.8-1. 3 Not Available [address], [address], 02/12/2021 15:23:25 02/13/20 21 02/12/2021 BASIC METAB OLIC PANEL B/C 12.2 ratio Not Available [address], [address], 02/12/2021 15:23:25 02/13/20 21 02/12/2021 BASIC METAB OLIC PANEL GFR -non 87.7 mL/mi n Recom everton d GFR by the Natio nal Kidne y Found ation >60 mL/mi n/1.7 3m2 - Merly l <60 mL/mi n/1.7 3m2 - Chron ic Kidne y Disea se <15 mL/mi n/1.7 3m2 - Kidne y Failu re Not Available [address], [address], 02/12/2021 15:23:25 02/13/20 21 02/12/2021 BASIC METAB OLIC PANEL GFR - if 106.1 mL/mi n For Afric an Ameri can patie nts: Resul ts Multi plied by 1.21 Not Available [address], [address], 02/12/2021 15:23:25 02/13/20 21 02/12/2021 BASIC METAB OLIC PANEL sodium 141 mmol/ L 136-14 5 Not Available [address], [address], 02/12/2021 15:23:25 02/13/20 21 02/12/2021 BASIC METAB OLIC PANEL potassium 4.1 mmol/ L 3.5-5. 1 Not Available [address], [address], 02/12/2021 15:23:25 02/13/20 21 02/12/2021 BASIC METAB OLIC PANEL chloride 107 mmol/ L 96-107 Not Available [address], [address], 02/12/2021 15:23:25 02/13/20 21 02/12/2021 BASIC METAB OLIC PANEL anion gap 9.5 5.0-15 .0 Not Available [address], [address], 02/12/2021 15:23:25 02/13/20 21 02/12/2021 BASIC METAB OLIC PANEL CO2 25 mmol/ L 21-32 Not Available [address], [address], 02/12/2021 15:23:25 02/13/20 21 02/12/2021 BASIC METAB OLIC PANEL calcium 8.2 mg/dL 8.5-10 .3 low FRANCIE=V erifi ed by Kg zarate Not Available [address], [address], 02/12/2021 15:23:25 02/13/20 21 02/14/2021 QUANT IFERO N TB GOLD PLUS, JOE nil 0.02 IU/mL Not Available [address], [address], 02/14/2021 14:35:03 02/13/20 21 02/14/2021 QUANT IFERO N TB GOLD PLUS, JOE TB1 antigen 0.23 IU/mL Not Available [address], [address], 02/14/2021 14:35:03 02/13/20 21 02/14/2021 QUANT IFERO N TB GOLD PLUS, JOE TB2 antigen 0.28 IU/mL Not Available [address], [address], 02/14/2021 14:35:03 02/13/20 21 02/14/2021 QUANT IFERO N TB GOLD PLUS, JOE mitogen 9.91 IU/mL Not Available [address], [address], 02/14/2021 14:35:03 02/13/20 21 02/14/2021 QUANT IFERO N TB GOLD PLUS, JOE tbgp Negati ve negati ve Not Available [address], [address], 02/14/2021 14:35:03 12/10/19 19 12/09/2018 XR, foot [...] ent vascul ar calcif icatio ns. IMPRES MIUGEL ANGEL: 1. No acute fractu re or disloc ation. 2. Minima l degene rative change s at the first metata rsopha langea l joint. Electr onical ly signed Readamos rodriguez Physic dejan: Lizandro manley [facility] (Imaging) [address], [place], [address], 12/10/2018 08:51:47 Result Notes None recorded. Problems Name Problem SNOMED Code Status Onset Date Resolution Date Notes Provider Name and Address Organization Details Recorded Time Diverticul itis of colon 027237615 Completed 07/31/2014 Carlos Tyson MD [address] [place] [address], [phone] , [facility] 5 15:19:00 Low back pain 601437584 Completed 03/08/2012 Not Available [facility] 3 03:15:09 Cough 25760886 Completed 03/08/2012 Not Available [facility] 3 03:15:09 Essential hypertensi on 21035878 Active Evelin Ambrocio aislinn [facility] 6 15:54:38 Glucose level outside reference range 180900449 Completed 03/08/2012 Not Available [facility] 3 03:15:09 Urolith Completed 07/31/2014 Carlos Tyson MD [address] [place] [address], [phone] , [facility] 5 15:19:00 Malaise and fatigue 823225774 Completed 06/03/2011 Not Available [facility] 3 03:15:09 Knee pain Completed 201509/04/2020 Carlos Tyson MD [address] [place] [address], [phone] , [facility] 1 15:47:08 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 Procedures Surgical History Date Name Laterality Status Provider Name and Address Organization Details Recorded Time 8 Medicare Wellness Visit completed Saranya Pierre Maximiliano [facility] 07/05/2018 08:44:21 8 Advanced Care Planning completed Saranya Pierre Maximiliano [facility] 07/05/2018 08:44:32 7 Medicare Wellness Visit completed Tasha Price [facility] 01/07/2017 14:13:44 6 Medicare Wellness Visit completed Roz Boland LPN [facility] 08/06/2015 09:00:19 5 Medicare Wellness Visit completed Aaliyah Hollingsworth LPN [facility] 07/31/2014 14:55:22 5 Medicare Annual Wellness Visit completed Aaliyah Hollingsworth LPN [facility] 07/31/2014 15:08:29 5 Medicare Risk for Falls Screen completed Aaliyah Hollingsworth LPN [facility] 07/31/2014 15:08:29 3 Medicare Wellness Visit completed Shari Jeffery [facility] 07/25/2013 08:56:35 2 Medicare Wellness Visit completed Cuba Fior SILVA [facility] 03/08/2012 10:02:24 2 Treatment and Advice completed Isaura Mancuso Mph, LPT [address] [place], [address], [facility] 08/07/2011 11:01:45 2 Treatment and Advice completed Isaura Mancuso Mph, LPT [address] [place], [address], [facility] 08/04/2011 11:11:29 2 Treatment and Advice completed Isaura Macnuso Mph, LPT [address] [place], [address], [facility] 08/01/2011 10:59:48 Imaging Results Imaging Date Name Status LastModified by Organiz ation Details LastModified Time 12/09/2018 XR, foot completed [facility] (Imaging) [address], [place], [address], 12/10/2018 08:51:47 Procedure Notes None recorded. Medical [...] completed Not Available Not Available Not Available Tiller 3 Fish Oil 684 mg-1,200 mg capsule,del ayed release Take 1 capsule every day by oral route. 04/17 completed Not Available Not Available Not Available Fluad Quad 4122-8866(6 5yr up)(PF) 60 mcg (15 mcg x 4)/0.5mL IM syringe [facility] 09/04 completed Not Available Not Available Not Available Vitals Date Recorded Body height Body mass index (BMI) Body weight Heart rate Systolic blood pressure Diastolic blood pressure Provider Name and Address Organization Details Last Updated DateTime 9 157.48 cm 33.7 kg/m2 36315 g 72 /min 116 mm[Hg] 72 mm[Hg] Sin Gutiérrez [facility] 9 12:09:07 Date Recorded Oxygen saturation Oxygen saturation in Arterial blood by Pulse oximetry Provider Name and Address Organization Details Last Updated DateTime 12/16/2018 97 % 97 % Milagros Medrano PA-C [address] [place] [address], [phone], [facility] 12/16/2018 15:55:29 Date Recorded Body height Body mass index (BMI) Body weight Heart rate Systolic blood pressure Diastolic blood pressure Provider Name and Address Organization Details Last Updated DateTime 9 157.48 cm 33.5 kg/m2 36244.1 g 84 /min 112 mm[Hg] 64 mm[Hg] Saranya Kaba user, [facility] 9 15:31:43 Date Recorded Body height Provider Name an d Address Organization Details Last Updated DateTime 07/18/2019 [address] [facility] 07/18/2019 16:11:20 Date Recorded Body height Body mass index (BMI) Body weight Heart rate Systolic blood pressure Diastolic blood pressure Provider Name and Address Organization Details Last Updated DateTime 0 157.48 cm 33.3 kg/m2 45577.5 1 g 80 /min 118 mm[Hg] 74 mm[Hg] Saranya Kaba user, [facility] 0 11:27:00 Date Recorded Body height Provider Name an d Address Organization Details Last Updated DateTime 09/04/2020 157.48 cm Saranya Ignacio [facility] 09/04/2020 15:08:58 Date Recorded Systolic blood pressure Diastolic blood pressure Provider Name and Address Organization Details Last Updated DateTime 09/10/2020 122 mm[Hg] 78 mm[Hg] Saranya Ignacio [facility] 09/10/2020 14:42:18 Social History Question Answer Notes LastModified by Organizat ion Details LastModified Time Tobacco Smoking Status Never Smoker Not Available [facility] 06/12/2011 04:53:49 Do You Have An Advance Directive? No 7 Information not available 06/12/2011 Are You Blind Or Do You Have Difficulty Seeing? No Information not available 07/25/2013 What Is Your Level Of Caffeine Consumption? Moderate Tea In The Am [email or web address] Information not available 02/01/2015 How Much Tobacco Do You Chew? None 7 Information not available 06/12/2011 Are You Deaf Or Do You Have Serious Difficulty Hearing? No Information not available 07/25/2013 What Type Of Diet Are You Following? VEGETARIAN [email or web address] Information not available 02/01/2015 How Many Days In The Past Year Have You Had A Heavy Drinking Consumption (4+ Female, 5+ Male)? 0 Information not available 01/17/2013 Are There Any Guns Present In Your Home? No [email or web address] Information not available 02/01/2015 Live Alone Or With Others? With Others Lives With Son & His Family, 1 18 Yo GRSON- Tyrell Information not available 03/08/2012 Patient Has Health Care Proxy Signed And In Chart Yes Negin [email or web address] Information not available 07/14/2018 Marital Status Jovannan,, They Are All Confucianism Information not available 03/08/2012 Mosquito Repellent Used Routinely Yes [email or web address] Information not available 02/01/2015 What Was The [...] 03/08/2012 Do You Use Sunscreen Routinely? Yes [email or web address] Information not available 07/05/2018 Do You Have [...] 07/31/2014 15:32:18 Sister Problem A&W, lives in [place] , [facility] Not available 07/31/2014 15:32:19 Mother Problem 70 heart proble m Not available 07/31/2014 15:32:19 Notes:No family hx DM. Medical History Condition Response Hypertension Y Immunizations Vaccine Type Date Status Note Provider Nam e and Address Organization Details Recorded Time Tdap 2 completed Not Available [facility] 08/13/2019 02:26:35 pneumococcal polysaccharide PPV23 2 completed Not Available [facility] 08/13/2019 02:14:35 influenza, unspecified formulation 0 completed Not Available [facility] 06/11/2011 05:22:41 Influenza, high-dose, trivalent, PF 5 completed Not Available [facility] 08/13/2019 02:19:19 Influenza, high-dose, trivalent, PF 6 completed Not Available [facility] 08/13/2019 02:25:39 Pneumococcal conjugate PCV 13 6 completed Not Available [facility] 08/13/2019 02:28:12 Influenza, high-dose, trivalent, PF 6 completed Not Available [facility] 08/13/2019 02:31:53 Influenza, split virus, trivalent, preservative 3 completed Carlos Tyson MD [address] [place] [address], [phone], [facility] 07/25/2013 09:20:31 Influenza, high-dose, trivalent, PF 7 completed Not Available [facility] 08/13/2019 02:37:57 zoster live 4 completed SHIRA Valdes, [facility] 07/31/2014 15:41:15 Influenza, high-dose, trivalent, PF 8 completed Not Available [facility] 08/13/2019 02:33:02 Influenza, high-dose, trivalent, PF 0 completed SHAHAB Meyer [facility] 08/17/2019 13:53:51 Influenza, split virus, quadrivalent, preservative 0 completed SHAHAB Meyer, [facility] 05/07/2020 09:04:52 Past Encounters Encounter ID Performer Location Encounter Start Date Encounter Closed Date Diagnosis/Indication Diagnosis SNOMED-CT Code Diagnosis ICD10 Code Diagnosis Note [id number] Bruna Betancourt NP FP, [facility], OFFICE [address] [place] [phone] 04/09/2009 15:17:04 04/12/2009 13:40:32 [id number] Tasneem Zuniga NP FP, [facility], OFFICE [address] [facility] [place] [address] 04/11/2009 15:59:43 04/18/2009 10:30:29 [id number] Bruna Betancourt NP FP, [facility], OFFICE [address] [facility] [place] [address] 04/16/2009 15:34:34 04/18/2009 11:40:07 [id number] [facility] LAB LAB - [address] [place] [address] 04/12/2009 08:23:33 04/12/2009 08:29:21 [id number] CLARA Arthur, [facility], OFFICE [address] [place] [address] [place] [facility] [place] [address] 06/05/2009 13:05:17 06/06/2009 15:27:45 [id number] CLARA Arthur, [facility], OFFICE [address] [place] [address] [place] [address] 06/13/2009 08:24:17 06/19/2009 09:31:08 [id number] [facility] P[employer] Radiology , [address] [place] [address] 06/13/2009 12:33:50 06/14/2009 14:44:27 [id number] CLARA Choi, [facility], OFFICE [address] [place] [address] [place] [address] 03/22/2010 09:10:14 03/27/2010 14:48:15 [id number] CLARA Arthur, [facility], OFFICE [address] [place] [address] [place] [address] 06/11/2010 08:36:10 06/14/2010 11:17:06 [id number] CLARA Arthur, [facility], OFFICE [address] [place] [address] [place] [address] 06/25/2010 08:21:03 06/28/2010 14:59:12 [id number] [facility] DYE EXPERT Radiology , [address] [place] [address] 06/25/2010 08:53:17 06/26/2010 14:01:07 [id number] Carlos Tyson MD FP, [facility], OFFICE [address] [facility] [place] [facility] [place] [address] 04/04/2011 08:25:19 04/04/2011 09:46:22 [id number] Carlos Tyson MD , [facility], OFFICE [address] [facility] [place] [facility] [place] [address] 06/03/2011 07:53:02 06/03/2011 08:51:16 [id number] Isaura Mancuso Mph, LPT Physical Therapy, [facility] [address] [facility] [place] [place] [address] 08/01/2011 09:29:38 08/01/2011 13:55:30 [id number] Isaura Mancuso Mph, LPT Physical Therapy, [address] [place] [place] [address] 08/04/2011 10:17:29 08/04/2011 11:19:02 [id number] Isaura Mancuso Mph, LPT Physical Therapy, [address] [place] [place] [address] 08/07/2011 09:09:53 08/07/2011 11:07:59 [id number] Isaura Mancuso Mph, LPT Physical Therapy, [address] [place] [place] [address] 08/11/2011 10:21:51 08/11/2011 11:19:12 [id number] Isaura Mancuso Mph, LPT Physical Therapy, [address] [place] [place] [address] 08/18/2011 10:18:34 08/18/2011 14:53:17 [id number] Isaura Mancuso Mph, LPT Physical Therapy, [address] [place] [facility] [place] [address] 08/25/2011 08:54:54 08/25/2011 09:47:57 [id number] Carlos Tyson MD , [facility], OFFICE [address] [facility] [place] [place] [address] 03/08/2012 09:46:19 03/08/2012 10:55:28 [id number] Carlos Tyson MD , [facility], OFFICE [address] [facility] [place] [place] [address] 09/16/2012 09:22:09 09/16/2012 10:13:39 [id number] Carlos Tyson MD , [facility], OFFICE [address] [place] [phone] 10/12/2012 07:27:25 10/12/2012 08:01:03 [id number] Carlos Tyson MD , [facility], OFFICE [address] [place] [phone] 01/17/2013 08:20:56 01/17/2013 09:07:18 [id number] Carlos Tyson MD , [facility], OFFICE [address] [place] [address] 07/25/2013 08:50:09 07/25/2013 09:36:21 Adult health examination [id number] see Risk Assessment and Lifestyle Change Counseling section above Counseling [id number] Essential hypertension [id number] Carlos Tyson MD , [facility], OFFICE [address] [place] [phone] 01/16/2014 08:09:23 01/16/2014 09:05:01 Benign essential hypertension [id number] Blood pressure at goal Knee pain [id number] Screening for cancer [id number] Carlos Tyson MD , [facility], OFFICE [address] [place] [address] [phone] 07/31/2014 14:40:53 07/31/2014 15:42:02 Adult health examination [id number] see Risk Assessment and Lifestyle Change Counseling section above Influenza vaccine needed [id number] 106 Benign ess ential hypertension 0331378 Blood pressure at goal [id number] Carlos Tyson MD , [facility] OFFICE [address] [place] [address] [phone] 02/01/2015 08:27:40 02/01/2015 09:10:44 Benign essential hypertension 7085913 Blood pressure at goal Knee pain 78808479 Screening for malignant neoplasm of colon 157171792 [id number] Carlos Tyson MD , [facility] OFFICE [address] [place] [address] [phone] 6 08/06/2015 08:43:12 08/06/2015 09:41:39 Adult health examination 314677131 Z00.00 see Risk Assessment and Lifestyle Change Counseling section above Benign ess ential hypertension 2370660 I10 Blood pressure at goal Eruption 340445453 R21 he has some infected cysts on chest Knee pain 34584271 M25.5 61 using voltaren cream Counseling 809221154 Z71 .9 Active or passive immunization 838527757 Z23 [id number] Carlos Tyson MD , [facility] OFFICE [address] [place] [address] [phone] 6 02/11/2016 09:07:13 02/11/2016 10:23:49 Benign essential hypertension 0058931 I10 Blood pressure at goal Upper chest pain 6880799 08 R07.9 Chest pain 11766446 R07. 9 Knee pain 62832979 M25.5 61 using voltaren cream Screening for malignant neoplasm of colon 028987822 Z12.11 [id number] Carlos Tyson MD , [facility] OFFICE [address] [place] [address] [phone] 6 04/17/2016 09:21:53 04/17/2016 10:46:49 Active or passive immunization 833241476 Z23 Bilateral cataracts 9572 2003 H26.9 Essential hypertension 43540415 I10 well controlled [id number] Deann Dickson , [facility] OFF[facility] [address] [place] [address] [phone] 6 01/07/2017 14:07:34 01/07/2017 14:43:05 Adult health examination 734392005 Z00.00 see Risk Assessment and Lifestyle Change Counseling section above Counseling 871834684 Z71 .9 Benign ess ential hypertension 7458449 I10 - Blood pressure at goal- Continue current medication s Cramp in lower limb 4499 48432 R25.2 - Will do ROSALBA for evaluation of blood flow Knee pain 52091776 M25.5 69 - Will continue with diclofenac gel and ice- Declines xray at this time Obesity 168306814 E66.9 - Discussed nutrition and regular exercise- Weight can improve blood pressure and cholestero l, as well as blood sugar [id number] Carlos Tyson MD , [facility] OFF[facility] [address] [place] [address] [phone] 6 04/10/2017 11:53:01 04/10/2017 12:13:20 Active or passive immunization 207831259 Z23 Cataract 114244648 H26.9 [id number] MD ADDISON Echols, [facility] OFFICE [address] [place] [address] [phone] 6 07/05/2018 08:21:28 07/05/2018 09:26:24 Adult health examination 664834876 Z00.00 see Risk Assessment and Lifestyle Change Counseling section above Depression screening 171 643496 Z13.89 depression screening tool administer ed, entered into emr, scored and discussed, time greater than 7.5 minutes Benign ess ential hypertension 6505148 I10 Blood pressure at goal Active or passive immunization 955318194 Z23 Pain in upper limb 76413 6003 M79.043 [id number] Deann Dickson , [facility] [address] [place] [address] [phone] 6 12/09/2018 15:35:10 12/10/2018 08:57:17 Pain in right foot 2624203967 88222 M79.671 Unclear etiology, point tenderness , warmth [...] fever, shaking chills, streaking erythema, severe pain. [id number] Deann JAIME [facility] OFFICE [address] [place] [address] [phone] 6 12/16/2018 11:48:34 12/16/2018 12:34:57 Edema of lower extremity 791274961 R60.0 Exam not consistent with CHF exacerbati [...] hemoptysis , chest pain, sudden weight gain. [id number] MD ADDISON Echols, [facility] OFFICE [address] [place] [address] [phone] 6 12/31/2018 14:51:40 12/31/2018 17:55:24 Knee pain 37013042 M25.561 using voltaren cream [id number] Carlos Tyson MD , [facility] OFF[facility] [address] [place] [address] [phone] 6 07/18/2019 15:46:47 07/19/2019 18:09:28 [id number] Carlos Tyson MD , [facility] OFF[facility] [address] [place] [address] [phone] 08/17/2019 10:52:16 08/17/2019 11:37:16 Active or passive immunization 820979693 Z23 Essential hypertension 60999856 I10 well controlled [id number] Carlos Tyson MD , [facility] [address] [place] [address] [phone] 6 09/04/2020 15:06:30 09/06/2020 09:31:21 Essential hypertension 37978542 I10 well controlled Health Concerns Section Related Observation LastModified by Organization Detai ls LastModified Time None Recorded Concern Status LastModified by Organization Details LastModified Time None Recorded Advance Directives Directive N: Payers Encounter Date Sequence Insurance Name Policy Number Policy Geiger Covered Member ID Geiger Member ID Guarantor Name 12/16/2018 1 [facility] - DOS PRIOR TO 2022 - DUAL ELIGIBLE (MEDICARE REPLACEMENT/AD VANTAGE - HMO) Harjit Lira Serrato [id number] Harjit Serrato 12/31/2018 1 [facility] - DOS PRIOR TO 2022 - DUAL ELIGIBLE (MEDICARE REPLACEMENT/AD VANTAGE - HMO) Harjit Lira Serrato [id number] Harjit Serrato 07/18/2019 1 [facility] - DOS PRIOR TO 2022 - DUAL ELIGIBLE (MEDICARE REPLACEMENT/AD VANTAGE - HMO) Harjit Lira Serrato [id number] Harjit Serrato 08/17/2019 1 [facility] - DOS PRIOR TO 2022 - DUAL ELIGIBLE (MEDICARE REPLACEMENT/AD VANTAGE - HMO) Harjit Lira Serrato [id number] Harjit Serrato 09/04/2020 1 [facility] - DOS PRIOR TO 2022 - DUAL ELIGIBLE (MEDICARE REPLACEMENT/AD VANTAGE - HMO) Harjit Serrato [id number] Harjit Serrato Notes Date Note Type Note [...] nocturnal dyspnea, weight gain, chest pain. 12/09/18 [place] note: Pt reports R foot, ankle swelling. [...] 9am today which helped. Milagros Medrano PA-C [address] [place] [address], [phone], [facility] 12/16/2018 15:58:45 9 text/html here to fill out paperwork for [facility] patient has ongoing issues with arthritis and knee pain. He is unable to work at this time. He previously had worked, but had to stop due to these issues. Carlos Tyson MD [address] [place] [address], [phone], [facility] 01/03/2019 06:21:24 9 text/html 07/18/19 LAST OV12/31/18 here to fill out paperwork for [facility] patient has ongoing issues with arthritis and knee pain. He is unable to work at this time. He previously had worked, but had to stop due to these issues. Carlos Tyson MD [address] [place] [address], [phone], [facility] 07/19/2019 18:09:26 0 [...] to be a problem Carlos Tyson MD [address] [place] [address], [phone], [facility] 08/17/2019 11:35:56 1 [...] was notified that the provider location [place] [facility] [place] During the visit the [...] to be a problem Carlos Tyson MD [address] [place] [address], [phone], [facility] 09/04/2020 15:49:07
== END 2024-12-16 13:55 | disposition home or self-care (01) ==
LOC: HO.HUSH 13:24
PROVIDERS: PCP Internal Medicine; Visit Provider Urology
DX: R97.20 Elevated prostate specific antigen [PSA] (principal); N40.0 Benign prostatic hyperplasia without lower urinary tract symptoms
CPT/HCPCS: 99213

== ENCOUNTER 2025-02-15 10:58 | Outpatient (REF) | payer MEDICARE, SELFPAY ==
--- NOTE | ~2025-02-15 | US_ITS ---
EXAMINATION: US TRIPLEX LOWER EXTREMITY, RIGHT CLINICAL INFORMATION: Edema, right lower extremity COMPARISON: None available. TECHNIQUE: Color-flow triplex imaging with spectral analysis and compression Doppler were performed on the right lower extremity. FINDINGS: Respiratory variation, normal compression and augmented flow are demonstrated in the interrogated right common femoral vein, superficial femoral vein, profunda femoral vein, popliteal vein and midcalf peroneal and posterior tibial venous segments thrombosis. There is a large, 4.4 cm lobulated complex anechoic lesion with internal echoes in the popliteal fossa without flow on color Doppler interrogation. US/US venous duplex LE RT IMPRESSION: No acute deep venous thrombosis interrogated veins, right lower extremity. Negative for DVT. 4.4 cm complex popliteal cyst. Electronically signed by: Vernon Cassidy MD 02/15/2025 11:38 AM EDT
--- OUTSIDE RECORDS SUMMARY | 2025-02-15 11:59 | XMS_ITS | Data Portability ---
Author Organization [facility], [facility] Address [address] [place] [address] Assessment Encounter Date Assessment Date Assessment LastModified by Organization Details LastModified Time 09/04/2020 09/04/2020 Patient agreed t o this visit via phone due to the COVID -19 pandemic. Patient understands this is a scheduled visit and the usual procedures with regard to billing and confidentiality apply. Patient was notified that the provider location is . Patient location: home During the visit the patient s medical history and medical record were [...] Modified By Organization Details Last Modified Time 12/31/2018 [id number] paperwork is filled out. Not available 01/03/2019 06:21:08 08/17/2019 [id number] Return for PHA 6m Not available 08/17/2019 11:35:25 09/04/2020 [id number] PHA. 6 m Not available 2020 15:47:17 Patient Instructions Encounter Date Encounter Id Patient Instructions Last Modified By Organization Details Last Modified Time 12/16/2018 [id number] leg and ankle edema: care instructions [email or web address] Not available 12/16/2018 12:31:06 After a discussion of treatment options, which included consideration of best practices, patient preferences, and the patient s individual lifestyle and treatment goals, as well as consideration and attempted mitigation of any barriers to meeting the patient s goals, the following treatment plan and [...] ts may be effec jacob. Not Available [address], [address], 12/10/2018 11:08:56 12/11/19 19 12/10/2018 BMP, serum or plasm a BUN 13 mg/dL 7-18 Not Available [address], [address], 12/10/2018 11:08:56 12/11/19 19 12/10/2018 BMP, serum or plasm a creatinine 1.0 mg/dL 0.8-1. 3 Not Available [address], [address], 12/10/2018 11:08:56 12/11/19 19 12/10/2018 BMP, serum or plasm a B/C 13.0 ratio Not Available [address], [address], 12/10/2018 11:08:56 12/11/19 19 12/10/2018 BMP, serum or plasm a GFR -non 78.1 mL/mi n Recom everton d GFR by the Natio nal Kidne y Found ation >60 mL/mi n/1.7 3m2 - Merly l <60 mL/mi n/1.7 3m2 - Chron ic Kidne y Disea se <15 mL/mi n/1.7 3m2 - Kidne y Failu re Not Available [address], [address], 12/10/2018 11:08:56 12/11/19 19 12/10/2018 BMP, serum or plasm a GFR - if 94.5 mL/mi n For Afric an Ameri can patie nts: Resul ts Multi plied by [email or web address] Not Available [address], [address], 12/10/2018 11:08:56 12/11/19 19 12/10/2018 BMP, serum or plasm a sodium 141 mmol/ L 136-14 5 Not Available [address], [address], 12/10/2018 11:08:56 12/11/19 19 12/10/2018 BMP, serum or plasm a potassium 4.5 mmol/ L 3.5-5. 1 Not Available [address], [address], 12/10/2018 11:08:56 12/11/19 19 12/10/2018 BMP, serum or plasm a chloride 106 mmol/ L 96-107 Not Available [address], [address], 12/10/2018 11:08:56 12/11/19 19 12/10/2018 BMP, serum or plasm a anion gap 7.8 5.0-15 .0 Not Available [address], [address], 12/10/2018 11:08:56 12/11/19 19 12/10/2018 BMP, serum or plasm a CO2 27 mmol/ L 21-32 Not Available [address], [address], 12/10/2018 11:08:56 12/11/19 19 12/10/2018 BMP, serum or plasm a calcium 8.6 mg/dL 8.5-10 .3 Not Available [address], [address], 12/10/2018 11:08:56 12/11/19 19 12/10/2018 uric acid, serum or plasm a uric acid 4.2 mg/dL 3.5-7. 2 Not Available [address], [address], 12/10/2018 11:08:57 12/11/19 19 12/10/2018 C-roseanne ctive prote in, quant itati ve, serum or plasm a C-reactive protein -quant 5.8 mg/L 0.0-9. 0 Not Available [address], [address], 12/10/2018 11:08:57 12/11/19 19 12/10/2018 ESR (eryt hrocy te sedim entat ion rate) , blood sed rate 2.0 0.0-20 .0 Not Available [address], [address], 12/10/2018 11:50:51 07/07/20 19 07/08/2019 BMP, serum or plasm a glucose 99 mg/dL 70-100 Not Available [address], [address], 07/08/2019 10:44:32 07/07/20 19 07/08/2019 BMP, serum or plasm a BUN 12 mg/dL 7-18 Not Available [address], [address], 07/08/2019 10:44:32 07/07/20 19 07/08/2019 BMP, serum or plasm a creatinine 1.0 mg/dL 0.8-1. 3 Not Available [address], [address], 07/08/2019 10:44:32 07/07/20 19 07/08/2019 BMP, serum or plasm a B/C 12.0 ratio Not Available [address], [address], 07/08/2019 10:44:32 07/07/20 19 07/08/2019 BMP, serum or plasm a GFR -non 77.8 mL/mi n Recom everton d GFR by the [facility] Gal[facility] y Found ation >60 mL/mi n/1.7 3m2 - Merly l <60 mL/mi n/1.7 3m2 - Chron ic Kidne y Disea se <15 mL/mi n/1.7 3m2 - Kidne y Failu re Not Available [address], [address], 07/08/2019 10:44:32 07/07/20 19 07/08/2019 BMP, serum or plasm a GFR - if 94.2 mL/mi n For Afric an Ameri can patie nts: Resul ts Multi plied by [email or web address] Not Available [address], [address], 07/08/2019 10:44:32 07/07/20 19 07/08/2019 BMP, serum or plasm a sodium 142 mmol/ L 136-14 5 Not Available [address], [address], 07/08/2019 10:44:32 07/07/2007/08/2019 BMP, serum or plasm a potassium 4.4 mmol/ L 3.5-5. 1 Not Available [address], [address], 07/08/2019 10:44:32 07/07/2007/08/2019 BMP, serum or plasm a chloride 104 mmol/ L 96-107 Not Available [address], [address], 07/08/2019 10:44:32 07/07/2007/08/2019 BMP, serum or plasm a anion gap 9.9 5.0-15 .0 Not Available [address], [address], 07/08/2019 10:44:32 07/07/2007/08/2019 BMP, serum or plasm a CO2 28 mmol/ L 21-32 Not Available [address], [address], 07/08/2019 10:44:32 07/07/2007/08/2019 BMP, serum or plasm a calcium 8.7 mg/dL 8.5-10 .3 Not Available [address], [address], 07/08/2019 10:44:32 07/07/2007/08/2019 lipid panel , serum cholesterol 160 mg/dL <200 mg/dl Genet able 200-2 39 mg/dl Borde rline High >240 mg/dl High Not Available [address], [address], 07/08/2019 10:44:33 07/07/2007/08/2019 lipid panel , serum triglyceride s 75 mg/dL <150 mg/dL Merly l 150-1 99 mg/dL Borde rline High 200-4 99 mg/dL High >500 mg/dL Very High Not Available [address], [address], 07/08/2019 10:44:33 07/07/2007/08/2019 lipid panel , serum direct HDL 41 mg/dL <40 mg/dl - Major Risk for CHD >60 mg/dl - Negat ronald Risk for CHD Not Available [address], [address], 07/08/2019 10:44:33 07/07/2007/08/2019 LDL, direc t, serum direct LDL 108 mg/dL RISK CATEG ORY LDL GOAL _ CHD or CHD Risk Equiv alent s <100 mg/dl (10-y ear risk >20%) 2+ Risk Facto rs <130 mg/dl (10-y ear risk <= 20%) 0-1 Risk Facto r <160 mg[facility] with 0-1 risk facto r have a 10 year risk <10%, thus 10 year risk asses ment in peopl e with 0-1 risk facto r is not necwyatt glenn. Not Available [address], [address], 07/08/2019 10:44:34 08/30/19 21 08/30/2020 BMP, serum or plasm a glucose 113 mg/dL 70-100 high Not Available [address], [address], 08/30/2020 13:55:42 08/30/19 21 08/30/2020 BMP, serum or plasm a BUN 15 mg/dL 7-18 Not Available [address], [address], 08/30/2020 13:55:42 08/30/19 21 08/30/2020 BMP, serum or plasm a creatinine 1.0 mg/dL 0.8-1. 3 Not Available [address], [address], 08/30/2020 13:55:42 08/30/19 21 08/30/2020 BMP, serum or plasm a B/C 15.0 ratio Not Available [address], [address], 08/30/2020 13:55:42 08/30/1908/30/2020 BMP, serum or plasm a GFR -non 77.6 mL/mi n Recom everton d GFR by the Natio nal Kidne y Found ation >60 mL/mi n/1.7 3m2 - Merly l <60 mL/mi n/1.7 3m2 - Chron ic Kidne y Disea se <15 mL/mi n/1.7 3m2 - Kidne y Failu re Not Available [address], [address], 08/30/2020 13:55:42 08/30/1908/30/2020 BMP, serum or plasm a GFR - if 93.9 mL/mi n For Afric an Ameri can patie nts: Resul ts Multi plied by 1.21 Not Available [address], [address], 08/30/2020 13:55:42 08/30/19 21 08/30/2020 BMP, serum or plasm a sodium 143 mmol/ L 136-14 5 Not Available [address], [address], 08/30/2020 13:55:42 08/30/19 21 08/30/2020 BMP, serum or plasm a potassium 4.1 mmol/ L 3.5-5. 1 Not Available [address], [address], 08/30/2020 13:55:42 08/30/19 21 08/30/2020 BMP, serum or plasm a chloride 106 mmol/ L 96-107 Not Available [address], [address], 08/30/2020 13:55:42 08/30/19 21 08/30/2020 BMP, serum or plasm a anion gap 10.0 5.0-15 .0 Not Available [address], [address], 08/30/2020 13:55:42 08/30/1908/30/2020 BMP, serum or plasm a CO2 27 mmol/ L 21-32 Not Available [address], [address], 08/30/2020 13:55:42 08/30/1908/30/2020 BMP, serum or plasm a calcium 8.7 mg/dL 8.5-10 .3 Not Available [address], [address], 08/30/2020 13:55:42 08/30/1908/30/2020 lipid panel , serum cholesterol 168 mg/dL <200 mg/dl Genet able 200-2 39 mg/dl Borde rline High >240 mg/dl High Not Available [address], [address], 08/30/2020 13:55:43 08/30/19 21 08/30/2020 lipid panel , serum triglyceride s 71 mg/dL <150 mg/dL Merly l 150-1 99 mg/dL Borde rline High 200-4 99 mg/dL High >500 mg/dL Very High Not Available [address], [address], 08/30/2020 13:55:43 08/30/19 21 08/30/2020 lipid panel , serum direct HDL 47 mg/dL <40 mg/dl - Major Risk for CHD >60 mg/dl - Negat ronald Risk for CHD Not Available [address], [address], 08/30/2020 13:55:43 08/30/1908/30/2020 LDL, calcu lated , serum (OBS) LDL - calculated 106.8 RISK CATEG ORY LDL GOAL _ CHD or CHD Risk Equiv alent s <100 mg/dl (10-y ear risk >20%) 2+ Risk Facto rs <130 mg/dl (10-y ear risk <= 20%) 0-1 Risk Facto r <160 mg/dl [facility] all peopl e with 0-1 risk facto r have a 10 year risk <10%, thus 10 year risk asses ment in peopl e with 0-1 risk facto r is not neces glenn. Not Available [address], [address], 08/30/2020 13:55:44 02/13/20 21 02/12/2021 LIPID PANEL cholesterol 148 mg/dL <200 mg/dl Genet able 200-2 39 mg/dl Borde rline High >240 mg/dl High Not Available [address], [address], 02/12/2021 14:06:18 02/13/20 21 02/12/2021 LIPID PANEL triglyceride s 54 mg/dL <150 mg/dL Merly l 150-1 99 mg/dL Borde rline High 200-4 99 mg/dL High >500 mg/dL Very High Not Available [address], [address], 02/12/2021 14:06:18 02/13/20 21 02/12/2021 LIPID PANEL direct HDL 42 mg/dL <40 mg/dl - Major Risk for CHD >60 mg/dl - Negat ronald Risk for CHD Not Available [address], [address], 02/12/2021 14:06:18 02/13/20 21 02/12/2021 LDL - CALCU LATED LDL - calculated 95.2 RISK CATEG ORY LDL GOAL _ CHD or CHD Risk Equiv alent s <100 mg/dl (10-y ear risk >20%) 2+ Risk Facto rs <130 mg/dl (10-y ear risk <= 20%) 0-1 Risk Facto r <160 mg/dl [facility] all peopl e with 0-1 risk facto r have a 10 year risk <10%, thus 10 year risk asses ment in peopl e with 0-1 risk facto r is not neces glenn. Not Available [address], [address], 02/12/2021 14:06:19 02/13/20 21 02/12/2021 BASIC METAB OLIC PANEL glucose 105 mg/dL 70-100 high Not Available [address], [address], 02/12/2021 15:23:25 02/13/20 21 02/12/2021 BASIC METAB OLIC PANEL BUN 11 mg/dL 7-18 Not Available [address], [address], 02/12/2021 15:23:25 02/13/20 21 02/12/2021 BASIC METAB OLIC PANEL creatinine 0.9 mg/dL 0.8-1. 3 Not Available [address], [address], 02/12/2021 15:23:25 02/13/20 21 02/12/2021 BASIC METAB OLIC PANEL B/C 12.2 ratio Not Available [address], [address], 02/12/2021 15:23:25 02/13/20 21 02/12/2021 BASIC METAB OLIC PANEL GFR -non 87.7 mL/mi n Recom everton d GFR by the Natio nal Kidne y Found ation >60 mL/mi n/1.7 3m2 - Merly l <60 mL/mi n/1.7 3m2 - Chron ic Kidne y Disea se <15 mL/mi n/1.7 3m2 - Kidne y Failu re Not Available [address], [address], 02/12/2021 15:23:25 02/13/20 21 02/12/2021 BASIC METAB OLIC PANEL GFR - if 106.1 mL/mi n For Afric an Ameri can patie nts: Resul ts Multi plied by 1.21 Not Available [address], [address], 02/12/2021 15:23:25 02/13/20 21 02/12/2021 BASIC METAB OLIC PANEL sodium 141 mmol/ L 136-14 5 Not Available [address], [address], 02/12/2021 15:23:25 02/13/20 21 02/12/2021 BASIC METAB OLIC PANEL potassium 4.1 mmol/ L 3.5-5. 1 Not Available [address], [address], 02/12/2021 15:23:25 02/13/20 21 02/12/2021 BASIC METAB OLIC PANEL chloride 107 mmol/ L 96-107 Not Available [address], [address], 02/12/2021 15:23:25 02/13/20 21 02/12/2021 BASIC METAB OLIC PANEL anion gap 9.5 5.0-15 .0 Not Available [address], [address], 02/12/2021 15:23:25 02/13/20 21 02/12/2021 BASIC METAB OLIC PANEL CO2 25 mmol/ L 21-32 Not Available [address], [address], 02/12/2021 15:23:25 02/13/20 21 02/12/2021 BASIC METAB OLIC PANEL calcium 8.2 mg/dL 8.5-10 .3 low FRANCIE=V erifi ed by Kg zarate Not Available [address], [address], 02/12/2021 15:23:25 02/13/20 21 02/14/2021 QUANT IFERO N TB GOLD PLUS, JOE nil 0.02 IU/mL Not Available [address], [address], 02/14/2021 14:35:03 02/13/20 21 02/14/2021 QUANT IFERO N TB GOLD PLUS, JOE TB1 antigen 0.23 IU/mL Not Available [address], [address], 02/14/2021 14:35:03 02/13/20 21 02/14/2021 QUANT IFERO N TB GOLD PLUS, JOE TB2 antigen 0.28 IU/mL Not Available [address], [address], 02/14/2021 14:35:03 02/13/20 21 02/14/2021 QUANT IFERO N TB GOLD PLUS, JOE mitogen 9.91 IU/mL Not Available [address], [address], 02/14/2021 14:35:03 02/13/20 21 02/14/2021 QUANT IFERO N TB GOLD PLUS, JOE tbgp Negati ve negati ve Not Available [address], [address], 02/14/2021 14:35:03 12/10/19 19 12/09/2018 XR, foot [...] signed Lissette [email or web address] Physic dejan: Lizandro mancera [facility] (Imaging) [address] , [place], [address], 12/10/2018 08:51:47 Result Notes None recorded. Problems Name Problem SNOMED Code Status Onset Date Resolution Date Notes Provider Name and Address Organization Details Recorded Time Diverticul itis of colon 034048556 Completed 07/31/2014 Carlos Tyson MD [address] [place] [address], [phone] , [facility] 5 15:19:00 Low back pain 129336283 Completed 03/08/2012 Not Available [facility] 3 03:15:09 Cough 44842472 Completed 03/08/2012 Not Available [facility] 3 03:15:09 Essential hypertensi on 15225510 [place] [facility] 6 15:54:38 Glucose level outside reference range 789540080 Completed 03/08/2012 Not Available [facility] 3 03:15:09 Urolith Completed 07/31/2014 Carlos Tysno MD [address] [place] [address], [phone] , [facility] 5 15:19:00 Malaise and fatigue 493137350 Completed 06/03/2011 Not Available [facility] 3 03:15:09 Knee pain Completed 201509/04/2020 Carlos Tyson MD [address] [place] [address], [phone] , [facility] 1 15:47:08 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 Procedures Surgical History Date Name Laterality Status Provider Name and Address Organization Details Recorded Time 8 Medicare Wellness Visit completed Saranya Peirre Maximiliano [facility] 07/05/2018 08:44:21 8 Advanced Care Planning completed Saranya Pierre Maximiliano [facility] 07/05/2018 08:44:32 7 Medicare Wellness Visit completed Tasha Price [facility] 01/07/2017 14:13:44 6 Medicare Wellness Visit completed Roz Boland LPN [facility] 08/06/2015 09:00:19 5 Medicare Wellness Visit completed Aaliyah Hollingsworth LPN [facility] 07/31/2014 14:55:22 5 Medicare Annual Wellness Visit completed Aaliyah Hollingsworth LPN [facility] 07/31/2014 15:08:29 5 Medicare Risk for Falls Screen completed Aaliyah Hollingsworth LPN [facility] 07/31/2014 15:08:29 3 Medicare Wellness Visit completed Shari Gil [facility] 07/25/2013 08:56:35 2 Medicare Wellness Visit completed Cuba Childress LPN [facility] 03/08/2012 10:02:24 2 Treatment and Advice completed Isaura Mancuso Mph, LPT [address] [place], [address], [facility] 08/07/2011 11:01:45 2 Treatment and Advice completed Isaura Mancuso Mph, LPT [address] [place], [address], [facility] 08/04/2011 11:11:29 2 Treatment and Advice completed Isaura Mancuso Mph, LPT [address] [place], [address], [facility] 08/01/2011 10:59:48 Imaging Results None recorded. Procedure Notes None recorded. Medical Equipment None [...] completed Not Available Not Available Not Available [place] 3 Fish Oil 684 mg-1,200 mg capsule,del ayed release Take 1 capsule every day by oral route. 04/17 completed Not Available Not Available Not Available Fluad Quad [id number](6 5yr up)(PF) 60 mcg (15 mcg x 4)/0.5mL IM syringe [facility] 09/04 completed Not Available Not Available Not Available Vitals Date Recorded Body height Body mass index (BMI) Body weight Heart rate Systolic And Diastolic Provider Name and Address Organization Details Last Updated DateTime 08/17/2019 157.48 cm 33.3 kg/m2 07990.51 g 80 /min 118/74 mm[Hg] Saranya ortega [facility] 08/17/2019 11:27:00 Date Recorded Body height Provider Name an d Address Organization Details Last Updated DateTime 09/04/2020 157.48 cm Saranya Pierre [facility] 09/04/2020 15:08:58 Date Recorded Systolic And Diastolic Provider Name and Address Organization Details Last Updated DateTime 09/10/2020 122/78 mm[Hg] Saranya Pierre [facility] 09/10/2020 14:42:18 Date Recorded Oxygen saturation Oxygen saturation in Arterial blood by Pulse oximetry Provider Name and Address Organization Details Last Updated DateTime 12/16/2018 97 % 97 % Milagros Medrano PA-C [address] [place] [address], [phone], [facility] 12/16/2018 15:55:29 Date Recorded Body height Body mass index (BMI) Body weight Heart rate Systolic And Diastolic Provider Name and Address Organization Details Last Updated DateTime 12/16/2018 157.48 cm 33.7 kg/m2 69459 g 72 /min 116/72 mm[Hg] Sin Gutiérrez [facility] 12/16/2018 12:09:07 Date Recorded Body height Body mass index (BMI) Body weight Heart rate Systolic And Diastolic Provider Name and Address Organization Details Last Updated DateTime 12/31/2018 157.48 cm 33.5 kg/m2 72409.1 g 84 /min 112/64 mm[Hg] Saranya ortega [facility] 12/31/2018 15:31:43 Date Recorded Body height Provider Name an d Address Organization Details Last Updated DateTime 07/18/2019 157.48 cm Malaika Cerda [facility] 07/18/2019 16:11:20 Social History Question Answer Notes LastModified by Organizat ion Details LastModified Time Tobacco Smoking Status Never Smoker Not Available [facility] 06/12/2011 04:53:49 Do You Have An Advance Directive? No Information not available 06/12/2011 Are You Blind Or Do You Have Difficulty Seeing? No Information not available 07/25/2013 What Is Your Level Of Caffeine Consumption? Moderate Tea In The Am [email or web address] Information not available 02/01/2015 How Much Tobacco Do You Chew? None 7 Information not available 06/12/2011 Are You Deaf Or Do You Have Serious Difficulty Hearing? No Information not available 07/25/2013 What Type Of Diet Are You Following? VEGETARIAN [email or web address] Information not available 02/01/2015 How Many Days In The Past Year Have You Had A Heavy Drinking Consumption (4+ Female, 5+ Male)? 0 Information not available 01/17/2013 Are There Any Guns Present In Your Home? No Information not available 02/01/2015 Live Alone Or With Others? With Others Lives With Son & His Family, 1 18 Yo GRSON- Tyrell Information not available 03/08/2012 Patient Has Health Care Proxy Signed And In Chart Yes Negin [email or web address] Information not available 07/14/2018 Marital Status Jovannan,, [employer] Information not available 03/08/2012 Mosquito Repellent Used Routinely Yes [email or web address] Information not available 02/01/2015 What Was The [...] Sunscreen Routinely? Yes Information not available 07/05/2018 Do You Have [...] 07/31/2014 15:32:18 Sister Problem A&W, lives in [place] , [facility] Not available 07/31/2014 15:32:19 Mother Problem 70 heart proble m Not available 07/31/2014 15:32:19 Notes:No family hx DM. Medical History Condition Response Hypertension Y Immunizations Vaccine Type Date Status Note Provider Nam e and Address Organization Details Recorded Time Tdap 2 completed Not Available [facility] 08/13/2019 02:26:35 pneumococcal polysaccharide PPV23 2 completed Not Available [facility] 08/13/2019 02:14:35 influenza, unspecified formulation 0 completed Not Available [facility] 06/11/2011 05:22:41 Influenza, high-dose, trivalent, PF 5 completed [facility] Available [facility] 08/13/2019 02:19:19 Influenza, high-dose, trivalent, PF 6 completed Not Available [facility] 08/13/2019 02:25:39 Pneumococcal conjugate PCV 13 6 completed Not Available [facility] 08/13/2019 02:28:12 Influenza, high-dose, trivalent, PF 6 completed Not Available [facility] 08/13/2019 02:31:53 Influenza, split virus, trivalent, preservative 3 completed Carlos Tyson MD [address] [place] [address], [phone], [facility] 07/25/2013 09:20:31 Influenza, high-dose, trivalent, PF 7 completed Not Available [facility] 08/13/2019 02:37:57 zoster live 4 completed SHIRA Valdes, [facility] 07/31/2014 15:41:15 Influenza, high-dose, trivalent, PF 8 completed Not Available [facility] 08/13/2019 02:33:02 Influenza, high-dose, trivalent, PF 0 completed SHAHAB Meyer, [facility] 08/17/2019 13:53:51 Influenza, split virus, quadrivalent, preservative 0 completed SHAHAB Meyer, [facility] 05/07/2020 09:04:52 Past Encounters Encounter ID Performer Location Encounter Start Date Encounter Closed Date Diagnosis/Indication Diagnosis SNOMED-CT Code Diagnosis ICD10 Code Diagnosis Note [id number] CLARA Choi, [facility], OFFICE [address] [place] [phone] 04/09/2009 15:17:04 04/12/2009 13:40:32 [id number] CLARA Arthur, [facility], OFFICE [address] [place] [phone] 04/11/2009 15:59:43 04/18/2009 10:30:29 [id number] CLARA Choi, [facility], OFFICE [address] [place] [phone] 04/16/2009 15:34:34 04/18/2009 11:40:07 [id number] [facility] LAB LAB - [address] [address] 04/12/2009 08:23:33 04/12/2009 08:29:21 [id number] Tasneem Zuniga NP FP, [facility], OFFICE [address] [facility] [place] [address] 06/05/2009 13:05:17 06/06/2009 15:27:45 [id number] Tasneem Zuniga NP FP, [facility], OFFICE [address] [facility] [place] [address] 06/13/2009 08:24:17 06/19/2009 09:31:[id number] [facility] Radiology , [address] [place] [address] 06/13/2009 12:33:50 06/14/2009 14:44:27 [id number] Bruna Betancourt NP FP, [facility], OFFICE [address] [facility] [place] [address] 03/22/2010 09:10:14 03/27/2010 14:48:15 [id number] Tasneem Zuniga NP FP, [facility], OFFICE [address] [facility] [place] [address] 06/11/2010 08:36:10 06/14/2010 11:17:06 [id number] Tasneem Zuniga NP FP, [facility], OFFICE [address] [place] [address] [place] [address] 06/25/2010 08:21:03 06/28/2010 14:59:12 [id number] [facility] DIRECTOR [facility] Radiology , [address] [place] [address] 06/25/2010 08:53:17 06/26/2010 14:01:07 [id number] Carlos Tyson MD FP, [facility], OFFICE [address] [facility] [place] [address] 04/04/2011 08:25:19 04/04/2011 09:46:22 [id number] Carlos Tyson MD FP, [facility], OFFICE [address] [facility] [place] [address] 06/03/2011 07:53:02 06/03/2011 08:51:16 [id number] Isaura Mancuso Mph, LPT Physical Therapy, [address] [place] [place] [address] 08/01/2011 09:29:38 08/01/2011 13:55:30 [id number] Isaura Mancuso Mph, LPT Physical Therapy, [facility] [address] [facility] [place] [address] 08/04/2011 10:17:29 08/04/2011 11:19:02 [id number] Isaura Mancuso Mph, LPT Physical Therapy, [facility] [address] [facility] [place] [facility] [address] 08/07/2011 09:09:53 08/07/2011 11:07:59 [id number] Isaura Mancuso Mph, LPT Physical Therapy, [facility] [address] [facility] [place] [facility] [address] 08/11/2011 10:21:51 08/11/2011 11:19:12 [id number] Isaura Mancuso Mph, LPT Physical Therapy, [address] [place] [address] 08/18/2011 10:18:34 08/18/2011 14:53:17 [id number] Isaura Mancuso Mph, LPT Physical Therapy, [address] [place] [address] 08/25/2011 08:54:54 08/25/2011 09:47:57 [id number] Carlos Tyson MD , [facility], OFFICE [address] [facility] [place] [address] 03/08/2012 09:46:19 03/08/2012 10:55:28 [id number] Carlos Tyson MD , [facility], OFFICE [address] [facility] [place] [address] 09/16/2012 09:22:09 09/16/2012 10:13:39 [id number] Carlos Tyson MD , [facility], OFFICE [address] [facility] [place] [address] 10/12/2012 07:27:25 10/12/2012 08:01:03 [id number] Carlos Tyson MD , [facility], OFFICE [address] [facility] [place] [address] 01/17/2013 08:20:56 01/17/2013 09:07:18 [id number] Carlos Tyson MD , [facility], OFFICE [address] [place] [address] 6 07/25/2013 08:50:09 07/25/2013 09:36:21 Adult health examination [id number] see Risk Assessment and Lifestyle Change Counseling section above Counseling [id number] Essential hypertension 21621850 [id number] Carlos Tyson MD , [facility], OFFICE [address] [place] [address] 6 01/16/2014 08:09:23 01/16/2014 09:05:01 Benign essential hypertension 2283751 Blood pressure at goal Knee pain 97610258 Screening for cancer 84745556 [id number] Carlos Tyson MD , [facility], OFFICE [address] [place] [address] 6 07/31/2014 14:40:53 07/31/2014 15:42:02 Adult health examination 605700915 see Risk Assessment and Lifestyle Change Counseling section above Influenza vaccine needed [id number] 106 Benign ess ential hypertension 0412824 Blood pressure at goal [id number] Carlos Tyson MD , [facility], OFFICE [address] [place] [address] 6 02/01/2015 08:27:40 02/01/2015 09:10:44 Benign essential hypertension 7134278 Blood pressure at goal Knee pain 29309832 Screening for malignant neoplasm of colon 180914326 [id number] Carlos Tyson MD , [facility], OFFICE [address] [place] [address] 6 08/06/2015 08:43:12 08/06/2015 09:41:39 Adult health examination 998905340 Z00.00 see Risk Assessment and Lifestyle Change Counseling section above Benign ess ential hypertension 9507014 I10 Blood pressure at goal Eruption 584019463 R21 he has some infected cysts on chest Knee pain 85588944 M25.5 61 using voltaren cream Counseling 711596463 Z71 .9 Active or passive immunization 736103581 Z23 [id number] MD ADDISON Echols, [facility], OFFICE [address] [place] [address] 6 02/11/2016 09:07:13 02/11/2016 10:23:49 Benign essential hypertension 2414689 I10 Blood pressure at goal Upper chest pain 7155874 08 R07.9 Chest pain 23068075 R07. 9 Knee pain 35056121 M25.5 61 using voltaren cream Screening for malignant neoplasm of colon 256896453 Z12.11 [id number] Carlos Tyson MD , [facility], OFFICE [address] [place] [address] 6 04/17/2016 09:21:53 04/17/2016 10:46:49 Active or passive immunization 170162421 Z23 Bilateral cataracts 9572 2003 H26.9 Essential hypertension 00441811 I10 well controlled [id number] Deann Dickson , [facility], OFFICE [address] [place] [address] 6 01/07/2017 14:07:34 01/07/2017 14:43:05 Adult health examination 838153434 Z00.00 see Risk Assessment and Lifestyle Change Counseling section above Counseling 179125650 Z71 .9 Benign ess ential hypertension 7976891 I10 - Blood pressure at goal- Continue current medication s Cramp in lower limb 4499 15257 R25.2 - Will do ROSALBA for evaluation of blood flow Knee pain 39144580 M25.5 69 - Will continue with diclofenac gel and ice- Declines xray at this time Obesity 932193548 E66.9 - Discussed nutrition and regular exercise- Weight can improve blood pressure and cholestero l, as well as blood sugar [id number] Carlos Tyson MD , [facility], OFFICE [address] [place] [address] 6 04/10/2017 11:53:01 04/10/2017 12:13:20 Active or passive immunization 162229243 Z23 Cataract 367827707 H26.9 [id number] Carlos Tyson MD , [facility], OFFICE [address] [place] [address] 6 07/05/2018 08:21:28 07/05/2018 09:26:24 Adult health examination 693714136 Z00.00 see Risk Assessment and Lifestyle Change Counseling section above Depression screening 171 235883 Z13.89 depression screening tool administer ed, entered into emr, scored and discussed, time greater than 7.5 minutes Benign ess ential hypertension 5918309 I10 Blood pressure at goal Active or passive immunization 302161488 Z23 Pain in upper limb 61120 6003 M79.744 [id number] Deann Dickson , [facility], OFFICE [address] [place] [address] 6 12/09/2018 15:35:10 12/10/2018 08:57:17 Pain in right foot 1983093685 40981 M79.671 Unclear etiology, point tenderness , warmth [...] fever, shaking chills, streaking erythema, severe pain. [id number] Deann JAIME, [facility], OFFICE [address] [place] [address] 6 12/16/2018 11:48:34 12/16/2018 12:34:57 Edema of lower extremity 256924080 R60.0 Exam not consistent with CHF exacerbati [...] hemoptysis , chest pain, sudden weight gain. [id number] MD ADDISON Echols, [facility], OFFICE [address] [place] [address] 6 12/31/2018 14:51:40 12/31/2018 17:55:24 Knee pain 72503990 M25.561 using voltaren cream [id number] MD ADDISON Echols, [facility], OFFICE [address] [place] [phone] 6 07/18/2019 15:46:47 07/19/2019 18:09:28 [id number] MD ADDISON Echols, [facility], OFFICE [address] [place] [address] [place] [address] 08/17/2019 10:52:16 08/17/2019 11:37:16 Active or passive immunization 978027144 Z23 Essential hypertension 71374702 I10 well controlled [id number] Carlos Tyson MD , [facility], OFFICE [address] [place] [address] 09/04/2020 15:06:30 09/06/2020 09:31:21 Essential hypertension 30600138 I10 well controlled Health Concerns Section Related Observation LastModified by Organization Detai ls LastModified Time None Recorded Concern Status LastModified by Organization Details LastModified Time None Recorded Advance Directives Directive N: Payers Insurance Date Sequence Insurance Name Policy Number Policy Geiger Covered Member ID Geiger Member ID Guarantor Name 02/18/2021 1 [facility] - DOS PRIOR TO 2022 - DUAL ELIGIBLE (MEDICARE REPLACEMENT/A DVANTAGE - HMO) Harjit Lira Serrato [id number] Harjit Serrato 02/18/2021 2 [place] [employer] Harjit Serrato [id number] Harjit Serrato 09/22/2022 1 [facility] PLAN (MEDICARE REPLACEMENT HMO) Harjit Serrato [id number] Harjit Serrato 10/12/2012 1 [place] Shabnam Batel [id number] Harjit Serrato 01/07/2017 1 [facility]ICAID HMO) Harjit Lira Serrato [id number] Harjit Serrato 10/12/2012 1 [place] Harjit Lira Serrato [id number] Harjit Serrato 10/12/2012 1 [place] Shabnam Serrato [id number] Harjit Serrato 11/13/2017 1 [place] Harjit Lira Serrato [id number] Harjit Serrato 10/12/2012 1 [employer] (MEDICARE SUPPLEMENT) Shabnam Serrato [id number] Harjit Serrato 05/01/2011 1 *SELF PAY* Ra john Serrato 10/12/2012 1 [place] Harjit Serrato [id number] Harjit Serrato 10/12/2012 1 [place] Harjit Serrato [id number] Harjit Serrato 10/12/2012 1 [place] Harjit Serrato [id number] Harjit Serrato 03/05/2021 PAYMENT PLAN Harjit Serrato 08/17/2019 3 [place] [employer] Harjit Serrato [id number] Harjit Serrato 03/04/2021 2 [place] Harjit Serrato [id number] Harjit Serrato 03/04/2021 1 [facility] - [facility]IOR PLAN (MEDICARE REPLACEMENT HMO) Harjit Serrato [id number] Harjit Serrato Notes Date Note Type Note Provider Name and Address Organization Details Recorded Time 9 text/html ROS as noted in the HPI 12/16/18: Patient present with his daughter for [...] 9am today which helped. Milagros Medrano PA-C [address] [place] [address], [phone], [facility] 12/16/2018 15:58:45 9 text/html here to fill out paperwork for [facility] patient has ongoing issues with arthritis and knee pain. He is unable to work at this time. He previously had worked, but had to stop due to these issues. Carlos Tyson MD [address] [place] [address], [phone], [facility] 01/03/2019 06:21:24 9 text/html [facility] HypertensionReported by Patient 07/18/19 LAST OV12/31/18 here to fill out paperwork for [facility] patient has ongoing issues with arthritis and knee pain. He is unable to work at this time. He previously had worked, but had to stop due to these issues. Carlos Tyson MD [address] [place] [address], [phone], [facility] 07/19/2019 18:09:26 0 text/html [facility] HypertensionReported by PatientHPIFor context, patient reportsno ischemic heart disease,no kidney disease,no history of cva,no congestive heart failure,no history of transient ischemic attacks,no peripheral vascular disease, andno history of diabetes. For control, patient reportspatient understands medications are to lower blood pressure. For compliance, patient reportscompliant with medications. For barriers to care, patient reportsno identified barriers to care. For associated symptoms, patient reportsno chest pain,no shortness of breath,no edema,no fatigue,no palpitations,no decline in exercise capacity, andno snoring. For ability to manage self care, patient reportspatient feels confident in ability to self manage condition. 08/17/2019-no concerns He is doing well at this time , NL LAbs, BP well controlledKnee cont to be a problem Carlos Tyson MD [address] [place], [phone], [facility] 08/17/2019 11:35:56 1 text/html [facility] HypertensionReported by PatientHPIFor context, patient reportsno ischemic heart disease,no kidney disease,no history of cva,no congestive heart failure,no history of transient ischemic attacks,no peripheral vascular disease, andno history of diabetes. For control, patient reportspatient understands medications are to lower blood pressure. For compliance, patient reportscompliant with medications. For barriers to care, patient reportsno identified barriers to care. For associated symptoms, patient reportsno chest pain,no shortness of breath,no edema,no fatigue,no palpitations,no decline in exercise capacity, andno snoring. For ability to manage self care, patient reportspatient feels confident in ability to self manage condition. 09/04/20-Patient agreed to this visit via non-secure telehealth platform due to the COVID -19 pandemic. The nature of the non-secure technology was discussed and the patient agreed to proceed. Patient understands this is a scheduled visit and the usual procedures with regard to billing and confidentiality apply. Patient was notified that the provider location is [place] Patient location: home During the visit the patient s medical history and medical record were reviewed. The patient was notified to call our office for worsening or urgent symptoms. Phone Call: Lab resultsUnable to obtain vitals-will call with vitals tomorrowNo concernsDoing well Time for intake: 6 minutes. 08/17/2019-no concerns He is doing well at this time , NL LAbs, BP well controlled Knee cont to be a problem Carlos Tyson MD [address] [place] [address], [phone], [facility] 09/04/2020 15:49:07
== END 2025-02-15 10:59 | disposition home or self-care (01) ==
LOC: HO.US 10:58
PROVIDERS: PCP Internal Medicine; Visit Provider Internal Medicine
DX: R22.41 Localized swelling, mass and lump, right lower limb (principal)
CPT/HCPCS: 93971

== ENCOUNTER → 2025-02-15 11:11 | Outpatient (BNV) | payer MEDICARE, SELFPAY | PROVIDERS: PCP Internal Medicine; Visit Provider Radiology Diagnostic Radiology | DX: M71.21 Synovial cyst of popliteal space [Baker], right knee (principal) | CPT/HCPCS: 93971 ==

== ENCOUNTER 2025-02-15 12:03 | Outpatient (REF) | payer MEDICARE, SELFPAY ==
[2025-02-15 13:01] LABS: MANUAL DIFF FLAG NO
[2025-02-15 13:09] LABS: Hematocrit 46.3 % (42.0-52.0); Hemoglobin 15.3 g/dl (14.0-18.0); Imm Gran Abs Auto 0.07 X10*3/uL (0.00-0.03); Imm Gran Pct Auto 0.9 % (0.0-0.4); Lymphocytes Absolute Auto 1.6 X10*3/uL (1.2-4.9); Mean Corpuscular HGB Conc 33.0 g/dl (31.0-36.0); Mean Corpuscular Hemoglobin 28.8 pg (27.0-33.0); Mean Corpuscular Volume 87.2 fL (80.0-98.0); NRBC Abs Auto 0.000 X10*3/uL (0.0-0.012); NRBC Pct Auto 0.0 /100WBC (0.0-0.2); Platelet Count 147 X10*3/uL (160-400); Red Blood Count 5.31 X10*6/uL (4.60-5.80); White Blood Count 8.1 X10*3/uL (4.8-10.8)
[2025-02-15 13:21] LABS: Hemoglobin A1C 157.4071 umol/L; Total Hemoglobin (HGBA1C) 3964.5156 umol/L
[2025-02-15 13:31] LABS: D Dimer High Sensitivity < 150 NG/ML
[2025-02-15 13:32] LABS: Alanine Aminotransferase 19 U/L (0-40); Albumin Level 4.2 g/dL (3.5-5.0); Alkaline Phosphatase 96 U/L (39-117); Anion Gap 12 (12-20); Aspartate Amino Transferase 21 U/L (5-37); Blood Urea Nitrogen 15 mg/dL (9-16); Calcium 8.9 mg/dL (8.4-10.2); Carbon Dioxide 23 mmol/L (22-29); Chloride 109 mmol/L (96-108); Estimated Glomerular Filt Rate > 60; Potassium 3.7 mmol/L (3.3-5.1); Sodium 140 mmol/L (135-145); Total Protein 6.9 g/dL (6.5-8.0)
[2025-02-15 13:37] LABS: Prostate Specific Antigen 12.78 ng/mL (<0.05-4.0)
== END 2025-02-15 12:04 | disposition home or self-care (01) ==
LOC: HO.10HDL 12:03
PROVIDERS: Urology; Visit Provider Internal Medicine
DX: Z12.5 Encounter for screening for malignant neoplasm of prostate (principal); N40.0 Benign prostatic hyperplasia without lower urinary tract symptoms; D69.6 Thrombocytopenia, unspecified; I10 Essential (primary) hypertension; R60.0 Localized edema; R73.01 Impaired fasting glucose; R97.20 Elevated prostate specific antigen [PSA]
CPT/HCPCS: 36415; 80053; 83036; 84153; 85025; 85379

== ENCOUNTER 2025-04-05 09:31 | Outpatient (REF) | payer OTHER, SELFPAY ==
--- NOTE | ~2025-04-05 | XR_ITS ---
EXAMINATION: XR KNEE, RIGHT CLINICAL INFORMATION: M25.561 - Pain in right knee COMPARISON: April 18, 2024 TECHNIQUE: AP lateral and sunrise views of the right knee. FINDINGS: Joint space narrowing involving mostly the medial compartment with asymmetric joint space narrowing and sclerosis with subchondral cyst formation along the articular surface of the medial tibial plateau and medial femoral condyle. Small marginal osteophyte formation, femoral condyles and medial tibial plateau. Small volume suprapatellar bursa joint effusion. No acute cortical disruption or malalignment. Vascular calcifications. XR/XR knee RT 3V IMPRESSION: Tricompartmental osteoarthrosis/osteoarthritis involving mostly the medial compartment, moderate to severe and worsening since prior exam. Suprapatellar bursa joint effusion, small volume. Atherosclerosis disease, peripheral. Electronically signed by: Vernon Cassidy MD 04/05/2025 11:29 AM EDT
== END 2025-04-05 09:32 | disposition home or self-care (01) ==
LOC: HO.HOSX 09:31
PROVIDERS: Visit Provider Orthopaedic Surgery
DX: M17.11 Unilateral primary osteoarthritis, right knee (principal)
CPT/HCPCS: 73562; 99202

== ENCOUNTER 2025-04-05 10:47 | Outpatient (AMB) | payer MEDICARE, SELFPAY ==
--- NOTE | 2025-04-05 11:31 | A.OFFVIS_ITS ---
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 The patient describes his pain as sharp in nature. Most of the pain is along the medial aspect of his knee. He has had multiple cortisone injections in the past. The most recent injection was given into his right knee in September of this year by another provider. He got minimal relief from that injection. He has failed the last 3 months of conservative treatment which has included Tylenol, anti-inflammatory medicines, topical cream and physical therapy exercises. He wishes to hold off on total knee replacement surgery if at all possible. At this point his right knee pain is interfering with his activities of daily living and his ability to sleep well through the night. Mock Up Assembler Required: Yes Mock Up Assembler Services: Mock Up Assembler Offered & Declined Mock Up Assembler Name: Zohaib- Daughter in Law Allergies No Known Allergies Allergy (Verified 04/05/25 11:36) Medication List - Last Reconciled 04/05/25 by Dalton Ingram MD amlodipine 10 mg PO DAILY dutasteride (Avodart) 0.5 mg PO DAILY furosemide 20 mg PO DAILY losartan 100 mg PO DAILY PFS Medical History Hearing loss Obesity, morbid (more than 100 lbs over ideal weight or BMI > 40) Arthritis, rheumatic, acute or subacute HTN (hypertension) Social History Household Members: Spouse Alcohol intake: never Patient Tobacco Use Status: Never used Tobacco service: No Current occupational status: unemployed and disabled Sexual orientation: Straight/Heterosexual Gender identity: Male Physical Exam Vital Signs: BMI result Body Mass Index 28.0 Const Other: Well-nourished well-developed very friendly male awake alert and oriented x3 in no acute distress Extrem Other: Right knee examination shows a minimal effusion, palpable crepitus with range of motion, pain with range of motion, no instability Results Reviewed Results Reviewed: X-rays of the patient's right knee show moderate to severe joint space narrowing, subchondral sclerosis, no acute bony abnormalities Assessment & Plan Assessment & Plan (1) Osteoarthritis of right knee: Code(s): M17.11 - Unilateral primary osteoarthritis, right knee Category: Medical Plan Mr. Serrato presents with right knee pain due to osteoarthritis. I had a lengthy discussion with the patient regarding his treatment options. He wishes to hold off on knee replacement surgery if at all possible. I agree with this plan. I will see if his insurance company will cover a viscosupplementation injection, s uch as Durolane, for his right knee. I will see him back once the injection is available. Feel free to call me at any time should questions regarding his orthopedic management arise. Thank you very much for asking me to see this very friendly gentleman. I spent 21 minutes in reviewing the patient's records and imaging studies, seeing the patient and documenting in the medical record. Orders: Orders XR knee RT 3V Today M25.561 - Pain in right knee Coding Level of Care Code New Pt Level 3 (42724) Complex EM visit Add On G2211 Diagnoses Osteoarthritis of right knee M17.11
[2025-04-05 11:36] VITALS: BMI 28.0
== END 2025-04-05 11:59 | disposition home or self-care (01) ==
LOC: HO.HOS 10:47
PROVIDERS: PCP Internal Medicine; Visit Provider Orthopaedic Surgery
DX: M17.11 Unilateral primary osteoarthritis, right knee (principal)
CPT/HCPCS: 99203; G2211

== ENCOUNTER → 2025-04-05 11:15 | Outpatient (BNV) | payer MEDICARE, SELFPAY | PROVIDERS: Visit Provider Radiology Diagnostic Radiology | DX: M25.461 Effusion, right knee (principal); M17.11 Unilateral primary osteoarthritis, right knee; I73.9 Peripheral vascular disease, unspecified | CPT/HCPCS: 73562 ==

== ENCOUNTER → 2025-04-17 13:02 | Outpatient (REF) | payer OTHER, SELFPAY ==
--- NOTE | 2025-04-17 13:07 | CA_ITS ---
Transthoracic Echocardiogram Patient (Last, First, Middle): Harjit Serrato, Gender: M Date of : 1945 Age: 79 Procedure Date: 04/17/2025 Procedure Type: Transthoracic Echocardiogram Location: OP Height: 157.48 cm Weight: 69.4 kg BSA: 1.71 m2 Heart Rate: bpm BP: 134 / 80 mmHg Musical Instrument Maker: ELISSA Referring MD: Karla Forrester MD Symptoms: HTN I.10 CHF I50.30 Study Quality: Fair ECG Rhythm: Sinus Conclusions: - The left ventricular systolic function is normal. The calculated ejection fraction is 61% by biplane method. - No obvious valvular pathology seen on this study. - There is mild dilatation of the ascending aorta measuring 4.20 cm.
== END ==
LOC: HO.CARD 13:02
PROVIDERS: PCP Internal Medicine; Visit Provider Internal Medicine
DX: I11.0 Hypertensive heart disease with heart failure (principal); I50.30 Unspecified diastolic (congestive) heart failure
CPT/HCPCS: 93306

== ENCOUNTER → 2025-04-17 13:07 | Outpatient (BNV) | payer OTHER, SELFPAY | PROVIDERS: PCP Internal Medicine; Visit Provider Internal Medicine | DX: I42.2 Other hypertrophic cardiomyopathy (principal); I11.0 Hypertensive heart disease with heart failure; I50.30 Unspecified diastolic (congestive) heart failure | CPT/HCPCS: 93306 ==

== ENCOUNTER 2025-04-26 15:54 | Outpatient (AMB) | payer OTHER, SELFPAY ==
--- NOTE | 2025-04-26 15:46 | MHC.OFFVIS ---
Intake Visit Reasons: Elevated PSA Intake Note: Patient is present via telehealth for elevated PSA 02/15 PSA:12.78 Urology Medication:NONE Antibiotic Allergy:NONE Blood Thinner:NONE Staff Internist Office Based Only Required: No Allergies No Known Allergies Allergy (Verified 04/26/25 15:55) Medication List - Last Reconciled 04/26/25 by Martin Baltazar MD finasteride (Proscar) 5 mg PO DAILY furosemide 20 mg PO DAILY losartan 100 mg PO DAILY HPI Comments Details: 04/26/25--Mr. Serrato is presenting as a telehealth follow-up he is being monitored due to elevated PSA his last PSA on 02/15/2025 was 12.78 he was prescribed dutasteride for BPH. History of Present Illness The patient is a 79-year-old male presenting with elevated Prostate-Specific Antigen (PSA) levels. The patient has been monitored for elevated PSA levels, with the most recent measurement on February 15, 2025, showing a level of 12.78, which is higher than previous readings. The patient's daughter states he has not been taking the dutasteride, did not refill. Discussedprostate biopsy to further investigate the elevated PSA levels and rule out the presence of cancer cells. The patient is not on any blood thinners, pre-procedure, the patient will be prescribed antibiotics to reduce the risk of infection. Will change the patient's medication from dutasteride to finasteride, with a prescription of 5 mg once daily. Results - PSA level on February 15, 2025: 12.78 Plan 1. Benign Prostatic Hyperplasia (Bph) - Switch from dutasteride to finasteride 5 mg once daily. 2. Elevated Prostate-Specific Antigen (Psa) - Recommend prostate biopsy to investigate elevated PSA levels. - Biopsy to be conducted in radiology with ultrasound guidance and local anesthesia. - Pre-procedure antibiotics to be prescribed to reduce infection risk. 12/16/24-- FU BPH, elevated PSA. Prescribed avodart. reviewed renal US results, has not done repeat PSA. Parapelvic renal cysts. Partially decompressed urinary bladder. Bladder volume 39 cc. Prostate volume 43.2 mL. 08/15/24--Harjit is a 79 year old male past medical history hypertension on amlodipine, who presents to the office as a new patient for elevated PSA. His daughter is here who interprets for him. I have reviewed lab results with them PSA-04/18/2024--8.15 ng/mL. I have discussed that elevated PSA may indicate changes in the prostate including benign enlargement, cancer and an inflammatory condition. I will empirically start an alpha reductase inhibitor Avodart 0.5 mg daily and repeat PSA. I have discussed consider prostate biopsy pending repeat PSA results. [facility] Medical History Hearing loss Obesity, morbid (more than 100 lbs over ideal weight or BMI > 40) Arthritis, rheumatic, acute or subacute HTN (hypertension) Social History Household Members: Spouse Alcohol intake: never Patient Tobacco Use Status: Never used Tobacco service: No Current occupational status: unemployed and disabled Sexual orientation: Straight/Heterosexual Gender identity: Male Review of Systems Const All systems reviewed & are unremarkable except as noted in HPI and below Reports no additional complaints Eyes Reports no additional complaints ENT Reports no additional complaints Card Reports no additional complaints Resp Reports no additional complaints GI Reports no additional complaints Reports as per HPI Musc Reports no additional complaints Skin/Breast Reports system reviewed and no additional complaints, except as documented Neuro Reports no additional complaints Psych Reports no additional complaints Endo Reports no additional complaints Marcin/Lymph Reports no additional complaints Aller/Immun Reports no additional complaints Telehealth Telehealth Telehealth Platform: [employer] Location of provider rendering services: practice address Location of patient: address on file Patient Identification confirmed using: Name, : Yes Telehealth method: voice only Patient verbally consented to treatment: Yes Patient verbally consented to billing insurance company: Yes Patient informed of any privacy concerns related to visit: Yes Minutes spent on Phone/Video with Pt.: 14 Assessment & Plan Assessment & Plan (1) Elevated PSA: Code(s): R97.20 - Elevated prostate specific antigen [PSA] Category: Medical (2) BPH (benign prostatic hyperplasia): Code(s): N40.0 - Benign prostatic hyperplasia without lower urinary tract symptoms Category: Medical Plan Plan 1. Benign Prostatic Hyperplasia (Bph) - Switch from dutasteride to finasteride 5 mg once daily. 2. Elevated Prostate-Specific Antigen (Psa) - Recommend prostate biopsy to investigate elevated PSA levels. - Biopsy to be conducted in radiology with ultrasound guidance and local anesthesia. - Pre-procedure antibiotics to be prescribed to reduce infection risk. Medications: New finasteride (Proscar) 5 mg PO DAILY 90 tabs 3RF Discontinued dutasteride (Avodart) Discontinued Reason: Doctor's Order 0.5 mg PO DAILY 90 caps 1RF Patient Instructions: The patient had an opportunity to ask questions regarding treatment plan. The patient expressed understanding and agreement with the above treatment plan. The patient is aware they should contact our office by phone for worsening of their current condition or the appearance of new symptoms. Compliance is encouraged with any medications and followup testing that is ordered. It is a privilege to be allowed the opportunity to participate in the urologic care of your patient. If you have any questions or concerns regarding treatment for the above conditions please do not hesitate to contact me. The office telephone contact is [phone]. This note is constructed in part using voice recognition software. While every effort has been made to ensure accuracy air conditioning installer errors may have been included. Yours sincerely, Martin Baltazar MD Scribe Plan - Not visible on output: Patient was informed and verbally consented to the use of an ambient scribe for clinic note documentation during this visit. Coding Level of Care Code Tele Est Pt Level 4 (37337) Diagnoses Elevated PSA R97.20 BPH (benign prostatic hyperplasia) N40.0
== END 2025-04-26 16:17 | disposition home or self-care (01) ==
LOC: HO.HUSH 15:54
PROVIDERS: PCP Internal Medicine; Visit Provider Urology
DX: R97.20 Elevated prostate specific antigen [PSA] (principal); N40.0 Benign prostatic hyperplasia without lower urinary tract symptoms
CPT/HCPCS: 99214

== ENCOUNTER 2025-05-18 10:06 | Outpatient (REF) | payer OTHER, SELFPAY ==
[2025-05-18 13:11] LABS: MANUAL DIFF FLAG NO
[2025-05-18 13:27] LABS: Hemoglobin 15.3 g/dl (14.0-18.0); NRBC Abs Auto 0.000 X10*3/uL (0.0-0.012); NRBC Pct Auto 0.0 /100WBC (0.0-0.2); PLT CLUMP 1; SCAN SMEAR FLAG 1
[2025-05-18 13:29] LABS: Hematocrit 48.5 % (42.0-52.0); Imm Gran Abs Auto 0.08 X10*3/uL (0.00-0.03); Imm Gran Pct Auto 1.0 % (0.0-0.4); Lymphocytes Absolute Auto 1.4 X10*3/uL (1.2-4.9); Mean Corpuscular HGB Conc 31.5 g/dl (31.0-36.0); Mean Corpuscular Hemoglobin 28.8 pg (27.0-33.0); Mean Corpuscular Volume 91.3 fL (80.0-98.0); Red Blood Count 5.31 X10*6/uL (4.60-5.80)
[2025-05-18 13:34] LABS: Platelet Count 119 X10*3/uL (160-400); White Blood Count 8.1 X10*3/uL (4.8-10.8)
[2025-05-18 13:44] LABS: Alanine Aminotransferase 17 U/L (0-40); Albumin Level 4.2 g/dL (3.5-5.0); Alkaline Phosphatase 79 U/L (39-117); Anion Gap 10 (12-20); Aspartate Amino Transferase 21 U/L (5-37); Blood Urea Nitrogen 14 mg/dL (9-16); Calcium 8.7 mg/dL (8.4-10.2); Carbon Dioxide 27 mmol/L (22-29); Chloride 111 mmol/L (96-108); Estimated Glomerular Filt Rate > 60; Potassium 4.5 mmol/L (3.3-5.1); Sodium 143 mmol/L (135-145); Total Protein 6.7 g/dL (6.5-8.0)
== END 2025-05-18 10:07 | disposition home or self-care (01) ==
LOC: HO.10HDL 10:06
PROVIDERS: Visit Provider Internal Medicine
DX: D69.6 Thrombocytopenia, unspecified (principal); H11.32 Conjunctival hemorrhage, left eye; I10 Essential (primary) hypertension; Z68.34 Body mass index [BMI] 34.0-34.9, adult
CPT/HCPCS: 36415; 80053; 85025

== ENCOUNTER 2025-06-07 09:02 | Outpatient (AMB) | payer OTHER, SELFPAY ==
--- NOTE | 2025-06-07 09:08 | MHC.OFFVIS ---
Vital Signs 06/07/25 09:14 Height 5 ft 2 in Intake Visit Reasons: Inj-right knee Euflexxa #1 Intake Note: Harjit is a 79 year old male who presents today for an injection in his right knee, Euflexxa #1. He describes his right knee pain as sharp in nature. He has failed the last 3 months of conservative treatment. He wishes to hold off on right total knee replacement surgery if at all possible. Allergies No Known Allergies Allergy (Verified 06/07/25 09:14) Medication List - Last Reconciled 06/07/25 by Dalton Ingram MD ciprofloxacin HCl 500 mg PO BID 4 days finasteride (Proscar) 5 mg PO DAILY furosemide 20 mg PO DAILY losartan 100 mg PO DAILY PFSH Medical History Hearing loss Obesity, morbid (more than 100 lbs over ideal weight or BMI > 40) Arthritis, rheumatic, acute or subacute HTN (hypertension) Social History Household Members: Spouse Alcohol intake: never Patient Tobacco Use Status: Never used Tobacco service: No Current occupational status: unemployed and disabled Sexual orientation: Straight/Heterosexual Gender identity: Male Physical Exam Extrem Other: Right knee examination shows a minimal effusion, palpable crepitus with range of motion, pain with range of motion, no instability Office Procedures AMB Joint Injection/Aspiration Joint Injection/Aspiration Primary Site: right knee Prep: site was prepped using aseptic technique Injected: 20 mg of (Euflexxa viscosupplementation), with 4 mL of and 1% plain lidocaine Procedure: The patient tolerated the procedure well Coding 00435 - Large joint Procedure code (CPT) selection complete Results Reviewed Results Reviewed: X-rays of the patient's right knee taken previously show joint space narrowing, subchondral sclerosis, no acute bony abnormalities Assessment & Plan Assessment & Plan (1) Osteoarthritis of right knee: Code(s): M17.11 - Unilateral primary osteoarthritis, right knee Category: Medical Plan Mr. Serrato presents with right knee pain due to osteoarthritis. The risks and benefits of the 1st Euflexxa injection were discussed at length with the patient. The patient wished to proceed. Tolerated the injection well. He will continue with his home exercise program. He will follow up for his 2nd injection next week as scheduled. Feel free to call me at any time should questions regarding his orthopedic management arise. I spent 20 minutes in reviewing the patient's records and imaging studies, seeing the patient and documenting in the medical record. Orders: Orders AMB Joint Injection/Aspiration Today M17.11 - Unilateral primary osteoarthritis, right knee Coding Level of Care Code Est Pt Level 3 (67706) Complex EM visit Add On G2211 Diagnoses Osteoarthritis of right knee M17.11 CPT Codes Coding - 36358 Large joint: 29084 - Large joint ([id number])
== END 2025-06-07 09:21 | disposition home or self-care (01) ==
LOC: HO.HOS 09:03
PROVIDERS: PCP Internal Medicine; Visit Provider Orthopaedic Surgery
DX: M17.11 Unilateral primary osteoarthritis, right knee (principal)
CPT/HCPCS: 20610; 99213

== ENCOUNTER → 2025-06-07 09:02 | Outpatient (BNVA) | payer OTHER, SELFPAY | PROVIDERS: PCP Internal Medicine; Visit Provider Orthopaedic Surgery | DX: M17.11 Unilateral primary osteoarthritis, right knee (principal) | CPT/HCPCS: 20610; 99212; J2003; J7323 ==

== ENCOUNTER 2025-06-14 09:05 | Outpatient (AMB) | payer OTHER, SELFPAY ==
--- NOTE | 2025-06-14 09:11 | MHC.OFFVIS ---
Vital Signs 06/14/25 09:12 Height 5 ft 2 in Intake Visit Reasons: Inj-Right knee Euflexxa #2 Intake Note: Harjit is a 79 year old male who presents today for an injection in his Right knee, Euflexxa #2. The patient states that he has gotten mild relief from the 1st injection. He continues to walk with a cane. He continues his home exercise program. Allergies No Known Allergies Allergy (Verified 06/14/25 09:12) Medication List - Last Reconciled 06/14/25 by Dalton Ingram MD ciprofloxacin HCl 500 mg PO BID 4 days finasteride (Proscar) 5 mg PO DAILY furosemide 20 mg PO DAILY losartan 100 mg PO DAILY PFS Medical History Hearing loss Obesity, morbid (more than 100 lbs over ideal weight or BMI > 40) Arthritis, rheumatic, acute or subacute HTN (hypertension) Social History Household Members: Spouse Alcohol intake: never Patient Tobacco Use Status: Never used Tobacco service: No Current occupational status: unemployed and disabled Sexual orientation: Straight/Heterosexual Gender identity: Male Physical Exam Extrem Other: Right knee examination shows a minimal effusion, palpable crepitus with range of motion, pain with range of motion, no instability Office Procedures AMB Joint Injection/Aspiration Joint Injection/Aspiration Primary Site: Right Knee Prep: site was prepped using aseptic technique Injected: Euflexxa, with 3 mL of and 1% plain Lidocaine Procedure: The patient tolerated the procedure well Coding 41910 - Large joint Procedure code (CPT) selection complete Assessment & Plan Assessment & Plan (1) Osteoarthritis of right knee: Code(s): M17.11 - Unilateral primary osteoarthritis, right knee Category: Medical Plan Mr. Serrato presents with right knee pain due to osteoarthritis. The risks and benefits of a 2nd Euflexxa injection were discussed at length with the patient. The patient wished to proceed. He tolerated the injection well. He will continue with his home exercise program. He will follow up next week as scheduled. Feel free to call me at any time should questions regarding his orthopedic management arise. Orders: Orders AMB Joint Injection/Aspiration Today M17.11 - Unilateral primary osteoarthritis, right knee Coding Level of Care Code Procedure Only Diagnoses Osteoarthritis of right knee M17.11 CPT Codes Coding - 90607 Large joint: 47043 - Large joint ([id number])
== END 2025-06-14 09:34 | disposition home or self-care (01) ==
LOC: HO.HOS 09:05
PROVIDERS: PCP Internal Medicine; Visit Provider Orthopaedic Surgery
DX: M17.11 Unilateral primary osteoarthritis, right knee (principal)
CPT/HCPCS: 20610

== ENCOUNTER → 2025-06-14 09:05 | Outpatient (BNVA) | payer OTHER, SELFPAY | PROVIDERS: PCP Internal Medicine; Visit Provider Orthopaedic Surgery | DX: M17.11 Unilateral primary osteoarthritis, right knee (principal) | CPT/HCPCS: 20610; J2003; J7323 ==

== ENCOUNTER 2025-06-21 10:11 | Outpatient (AMB) | payer OTHER, SELFPAY ==
--- NOTE | 2025-06-21 10:23 | MHC.OFFVIS ---
Intake Visit Reasons: Inj-Right knee Euflexxa #3 Intake Note: Harjit is a 79 year old male who presents today for his final Euflexxa dose in the right knee, #3. The patient states that he has gotten mild relief from the first 2 injections. He continues to walk with a cane. Allergies No Known Allergies Allergy (Verified 06/21/25 10:24) Medication List - Last Reconciled 06/21/25 by Dalton Ingram MD ciprofloxacin HCl 500 mg PO BID 4 days finasteride (Proscar) 5 mg PO DAILY furosemide 20 mg PO DAILY losartan 100 mg PO DAILY [facility] Medical History Hearing loss Obesity, morbid (more than 100 lbs over ideal weight or BMI > 40) Arthritis, rheumatic, acute or subacute HTN (hypertension) Social History Household Members: Spouse Alcohol intake: never Patient Tobacco Use Status: Never used Tobacco service: No Current occupational status: unemployed and disabled Sexual orientation: Straight/Heterosexual Gender identity: Male Physical Exam Extrem Other: Right knee examination shows a minimal effusion, palpable crepitus with range of motion, pain with range of motion, no instability Office Procedures AMB Joint Injection/Aspiration Joint Injection/Aspiration Primary Site: Right Knee Prep: site was prepped using aseptic technique Injected: 20 mg of, Euflexxa, with 3 mL of and 1% plain Lidocaine Procedure: The patient tolerated the procedure well Coding - Large joint Procedure code (CPT) selection complete Assessment & Plan Assessment & Plan (1) Osteoarthritis of right knee: Code(s): M17.11 - Unilateral primary osteoarthritis, right knee Category: Medical Plan Mr. Serrato presents with right knee pain due to osteoarthritis. The risks and benefits of a 3rd Euflexxa injection were discussed at length with the patient. The patient wished to proceed. He tolerated the injection well. He will continue with his home exercise program. He will contact me prior to his follow-up appointment in 3 months should any questions or concerns arise. Feel free to call me at any time should questions regarding his orthopedic management arise. Orders: Orders AMB Joint Injection/Aspiration Today M17.11 - Unilateral primary osteoarthritis, right knee Coding Level of Care Code Procedure Only Diagnoses Osteoarthritis of right knee M17.11 CPT Codes Coding - Large joint: 90882 - Large joint ([id number])
== END 2025-06-21 10:52 | disposition home or self-care (01) ==
LOC: HO.HOS 10:12
PROVIDERS: PCP Internal Medicine; Visit Provider Orthopaedic Surgery
DX: M17.11 Unilateral primary osteoarthritis, right knee (principal)
CPT/HCPCS: 20610

== ENCOUNTER → 2025-06-21 10:11 | Outpatient (BNVA) | payer OTHER, SELFPAY | PROVIDERS: PCP Internal Medicine; Visit Provider Orthopaedic Surgery | DX: M17.11 Unilateral primary osteoarthritis, right knee (principal); M25.561 Pain in right knee | CPT/HCPCS: 20610; J2003; J7323 ==